=== PATIENT | female | born 1930 | race Caucasian/White ===

== ENCOUNTER 2019-09-09 10:17 | Inpatient (IN) | payer MEDICARE, OTHER ==
[2019-09-09 10:48] LABS: #Lymphocytes 0.7 thou/uL (1.20-3.40); #Monocytes 0.5 thou/uL (0.11-0.59); #Neutrophils 18.2 thou/uL (1.40-6.50); %Basophils 0.1 % (0.0-1.0); %Lymphocytes 3.7 % (21.0-51.0); %Monocytes 2.4 % (0.0-10.0); %Neutrophils 93.7 % (42.0-75.0); Hemoglobin 15.5 g/dL (12.0-16.0); Mean Corpuscular HGB CONC 32.5 g/dL (32.0-36.0); Mean Corpuscular Hemoglobin 30.9 pg (27.0-31.0); Mean Corpuscular Volume 95.1 fL (78.0-98.0); Mean Platelet Volume 10.2 fL (7.4-10.4); Platelet Count 161 thou/uL (130-400); RBC Distribution Width 11.7 % (11.5-14.5); White Blood Cell (WBC) Count 19.5 thou/uL (4.8-10.8)
[2019-09-09 10:56] LABS: Bilirubin Negative (Negative); Blood, Urine Negative (Negative); Clarity Clear (Clear); Glucose, Urine (Dipstick) Greater than 1000 mg/dL (Negative); Leukocyte Negative Leu/uL (Negative); Nitrite Negative (Negative); Protein, Urine (Dipstick) 10 mg/dL (Neg-Trace); Urobilinogen Normal mg/dL (Less than 2)
[2019-09-09 11:20] LABS: ALT (SGPT) 24 U/L (8-55); AST (SGOT) 27 U/L (5-34); Alkaline Phosphatase 77 U/L (40-110); Anion Gap 16 mmol/L (10-20); BUN (Urea Nitrogen) 19 mg/dL (9.8-20.1); Bilirubin, Total 0.9 mg/dL (0.2-1.2); Calc. Creatinine Clearance 0 mL/min (70-130); Calcium 10.1 mg/dL (7.8-10.44); Carbon Dioxide 21 mmol/L (23-31); Chloride 100 mmol/L (98-107); Estimated GFR-MDRD 45; Globulin 3.1 g/dL (2.4-3.5); Glucose 373 mg/dL (83-110); Protein, Total 7.1 g/dL (6.0-8.3); Sodium 133 mmol/L (136-145)
[2019-09-09 11:44] LABS: CKMB 11.9 ng/mL (0-6.6)
--- NOTE | 2019-09-09 11:56 | RAD ---
Chest one view HISTORY: Fever. Dyspnea. COMPARISON: 09/30/2015. FINDINGS: Cardiac silhouette is magnified and enlarged. Pulmonary vasculature remains engorged. Mediastinum is midline with aortic calcification. No lobar consolidation or evidence of pneumothorax. Prominent degenerative changes of the shoulders. surveillance operator leads overlie the chest. IMPRESSION : Cardiomegaly and pulmonary vascular congestion. Chronic findings. No new abnormalities are demonstrat ed. Atherosclerosis.
[2019-09-09] MEDS ORDERED: Acetaminophen 325 MG TAB PO PRN (12:30)
[2019-09-09] MEDS ORDERED: Ondansetron PF 4 MG/2 ML Vial IVP PRN (12:30)
[2019-09-09] MEDS ORDERED: Ondansetron ODT 4 MG TAB SL PRN (12:30)
[2019-09-09 12:39] LABS: INR-International Normal Ratio 1.7; PTT 31.3 SEC (22.9-36.1); Prothrombin Time 20.3 sec (12.0-14.7)
[2019-09-09] MEDS ORDERED: cefTRIAXone\\ROCEPHIN 2 GM VIAL ONE (12:47)
[2019-09-09] MEDS ORDERED: Lorazepam 2 MG/ML VIAL ONE (14:26)
[2019-09-09] MEDS ORDERED: Sodium Chloride 0.9% 10 ML ONE (14:26)
[2019-09-09] MEDS ORDERED: Furosemide 40 MG/4 ML VIAL ONE (14:35)
[2019-09-09] MEDS ORDERED: Sodium Chloride 0.9% 20 ML ONE (14:35)
[2019-09-09 14:44] LABS: Actual Bicarbonate (HCO3a) 22.7 mEq/L (22-28); Base Excess (BEa) -1.9 mEq/L (-2.0 to +3.0); CO2 Tension 38.5 mmHg (35.0-45.0); Carboxyhemoglobin (COHb) 1.1 gm% (0.0-3.0); Hemoglobin (Hb) 16.2 g/dL (12.0-16.0); O2 Tension (PaO2), arterial 275.7 mmHg (> 60.0); Potassium - ABG Lab 3.49 mmol/L (3.70-5.30); pH, Arterial 7.39 (7.35-7.45)
[2019-09-09 15:03] LABS: ALV-art Gradient 389.175 (0-20); Puncture Site RBRACH
[2019-09-09] MEDS ORDERED: Dextrose 50% Abboject 50 ML SYRINGE SLOW IVP PRN (15:04)
[2019-09-09] MEDS ORDERED: Dextrose 5% in Water 1,000 ML IV PRN (15:04)
--- NOTE | 2019-09-09 15:08 | PDOC.HHP ---
Hospitalist HPI - History of Present Illness Altered mental status History of Present Illness: Patient is a 89-year-old female who apparently still lives at home in [place]. The patient is unable to give me any history. I am basing most of the history on the ER record which is sparse. Apparently the patient was picked up from her home by EMS because of presumed altered mental status. I have no specific documentation of that. In route from home to the hospital the patient received a milligram of Ativan and 4 mg of morphine total because she was experiencing some back pain. I have no other specific insight. I attempted to call the patient's person to notify in the computer system. There are 2 numbers. 1 did not get an answer and the other was a voicemail. ED Course: Emergency department patient received a dose of Rocephin. She had a COVID screen sent. Her chest x-ray was reported as normal and her urine benign. She did have leukocytosis. Hospitalist ROS - Review of Systems ROS unobtainable: due to mental status Hospitalist History - Past Medical History Cardiac: reports: AFIB (There is atrial fibrillation reported in the emergency department documentation. Prior records indicate no evidence of this. 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 Her power of business office assistant is her significant other Jesús. Attempts to reach and have been unsuccessful. - Exam General - other findings: Awake and slightly agitated Neck: no JVD Heart: RRR, no murmur, no gallops, no rubs, normal peripheral pulses Respiratory: CTAB, no wheezes, no rales, no ronchi, normal chest expansion, no tachypnea, normal percussion Gastrointestinal: soft, non-tender, non-distended, normal bowel sounds, no palpable masses, no hepatomegaly, no splenomegaly, no bruit Extremities: no cyanosis, no clubbing, no edema Skin: normal turgor Neurological: no focal deficits Musculoskeletal: normal tone Psychiatric - other findings: Agitated Hospitalist Results - Labs Result Diagrams: 09/09/19 10:39 09/09/19 10:39 Lab results: WBC 19.5 thou/uL (4.8-10.8) H 09/09/19 10:39 Hgb 15.5 g/dL (12.0-16.0) 09/09/19 10:39 Hct 47.6 % (36.0-47.0) H 09/09/19 10:39 MCV 95.1 fL (78.0-98.0) 09/09/19 10:39 Plt Count 161 thou/uL (130-400) 09/09/19 10:39 Neutrophils % 93.7 % (42.0-75.0) H 09/09/19 10:39 ABG pH 7.39 (7.35-7.45) 09/09/19 14:31 ABG pCO2 38.5 mmHg (35.0-45.0) 09/09/19 14:31 ABG pO2 275.7 mmHg (> 60.0) H 09/09/19 14:31 Sodium 133 mmol/L (136-145) L 09/09/19 10:39 Potassium 4.0 mmol/L (3.5-5.1) 09/09/19 10:39 Chloride 100 mmol/L (98-107) 09/09/19 10:39 Carbon Dioxide 21 mmol/L (23-31) L 09/09/19 10:39 BUN 19 mg/dL (9.8-20.1) 09/09/19 10:39 Creatinine 1.13 mg/dL (0.6-1.1) H 09/09/19 10:39 Glucose 373 mg/dL (83-110) H 09/09/19 10:39 Lactic Acid 2.0 mmol/L (0.5-2.2) 09/09/19 11:33 Calcium 10.1 mg/dL (7.8-10.44) 09/09/19 10:39 Total Bilirubin 0.9 mg/dL (0.2-1.2) 09/09/19 10:39 AST 27 U/L (5-34) 09/09/19 10:39 ALT 24 U/L (8-55) 09/09/19 10:39 Alkaline Phosphatase 77 U/L (40-110) 09/09/19 10:39 CK-MB (CK-2) 11.9 ng/mL (0-6.6) H* 09/09/19 10:39 Troponin I 0.048 ng/mL (< 0.028) H 09/09/19 10:39 Serum Total Protein 7.1 g/dL (6.0-8.3) 09/09/19 10:39 Albumin 4.0 g/dL (3.4-4.8) 09/09/19 10:39 Lipase 68 U/L (8-78) 09/09/19 10:39 Urine Ketones 10 mg/dL (Negative) A 09/09/19 10:35 Urine Blood Negative (Negative) 09/09/19 10:35 Urine Nitrite Negative (Negative) 09/09/19 10:35 Ur Leukocyte Esterase Negative Kulwinder/uL (Negative) 09/09/19 10:35 - Radiology Interpretation Chest x-ray Status: image reviewed by me Additional Comment: Evidence of pulmonary edema. No infiltrates. Hospitalist H&P A/P - Problem (1) Acute metabolic encephalopathy Code(s): G93.41 - METABOLIC ENCEPHALOPATHY Status: Acute (2) Acute congestive heart failure Code(s): I50.9 - HEART FAILURE, UNSPECIFIED Status: Acute (3) Dyslipidemia Code(s): E78.5 - HYPERLIPIDEMIA, UNSPECIFIED Status: Chronic (4) HTN (hypertension) Code(s): I10 - ESSENTIAL (PRIMARY) HYPERTENSION Status: Chronic (5) History of DVT (deep vein thrombosis) Code(s): Z86.718 - PERSONAL HISTORY OF OTHER VENOUS THROMBOSIS AND EMBOLISM Status: Chronic (6) Hypothyroid Code(s): E03.9 - HYPOTHYROIDISM, UNSPECIFIED Status: Chronic (7) Tricuspid regurgitation Code(s): I07.1 - RHEUMATIC TRICUSPID INSUFFICIENCY Status: Chronic (8) Myocardial infarction Code(s): I21.9 - ACUTE MYOCARDIAL INFARCTION, UNSPECIFIED Status: Acute Qualifiers: Myocardial infarction type: type 2 Qualified Code(s): I21.A1 - Myocardial infarction type 2 (9) CKD (chronic kidney disease), stage III Code(s): N18.3 - CHRONIC KIDNEY DISEASE, STAGE 3 (MODERATE) Status: Acute (10) Diabetes mellitus Code(s): E11.9 - TYPE 2 DIABETES MELLITUS WITHOUT COMPLICATIONS Status: Acute - Plan Plan: Acute metabolic encephalopathy: Patient presents with apparent encephalopathy and altered mental status. Cannot confirm what her baseline is as she only has 1 person who would know and I cannot reach him at the moment. She is quite clearly moving all of her extremities quite well and has no focal deficits. Acute congestive heart failure: Patient appears to have some pulmonary vascular congestion on her chest x-ray. When she arrived to the floor and she was a bit agitated saying she could not breathe. Her oxygen saturation appeared to be good. ABG confirmed that. She does have a history of severe tricuspid regurgitation. Giving her 40 mg of Lasix. Ordering a BNP. Order an echocardiogram. Hypertension: We will resume her usual home medications once confirmed. 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 I do not know exactly when her thrombi were an issue. We will try to get some additional information to confirm the patient needs to continue on that at this time. Hypothyroidism: Continue home dose of Synthroid once confirmed. NSTEMI type II: She has evidence of slightly elevated troponin and CK-MB. EKG was reportedly nonspecific. We will review that. We will continue with troponins and telemetry. This could be related to some decompensated heart failure. We will add aspirin. Diabetes mellitus type 2: This patient presumably does not take medications for this at home. The nurse apparently did speak to the patient significant other earlier and he indicated that she is noncompliant. Blood sugars are elevated here. Will cover with sliding scale insulin. Chronic kidney disease stage III: Patient's creatinine appears to be relatively close to her baseline renal function. We will provide PUD prophylaxis. She does not need anticoagulation as she is already on warfarin. We will continue to attempt to reach her significant other and power of business office assistant in order to establish a better history and to get CODE STATUS.
[2019-09-09 15:38] LABS: Troponin I 0.053 ng/mL (< 0.028)
[2019-09-09] MEDS: Lorazepam 2 MG/ML VIAL SLOW IVP PRN (21:49)
[2019-09-09] MEDS: HumaLOG 300 UNITS/3 ML VIAL SC PRN (23:26)
[2019-09-10] MEDS: Lorazepam 2 MG/ML VIAL SLOW IVP PRN (02:00)
[2019-09-10 04:51] LABS: #Monocytes 1.3 thou/uL (0.11-0.59); #Neutrophils 16.1 thou/uL (1.40-6.50); %Basophils 0.2 % (0.0-1.0); %Eosinophils 0.1 % (0.0-10.0); %Lymphocytes 5.6 % (21.0-51.0); %Monocytes 7.1 % (0.0-10.0); Hemoglobin 16.6 g/dL (12.0-16.0); Mean Corpuscular Hemoglobin 30.8 pg (27.0-31.0); Mean Corpuscular Volume 96.4 fL (78.0-98.0); Mean Platelet Volume 9.4 fL (7.4-10.4); Platelet Count 159 thou/uL (130-400); RBC Distribution Width 11.8 % (11.5-14.5); Red Blood Cell (RBC) Count 5.39 mill/uL (4.20-5.40); White Blood Cell (WBC) Count 18.5 thou/uL (4.8-10.8)
[2019-09-10 05:18] LABS: ALT (SGPT) 29 U/L (8-55); AST (SGOT) 68 U/L (5-34); Albumin 3.9 g/dL (3.4-4.8); Alkaline Phosphatase 77 U/L (40-110); Anion Gap 17 mmol/L (10-20); BUN (Urea Nitrogen) 17 mg/dL (9.8-20.1); Calc. Creatinine Clearance 68 mL/min (70-130); Calcium 10.7 mg/dL (7.8-10.44); Carbon Dioxide 23 mmol/L (23-31); Chloride 100 mmol/L (98-107); Estimated GFR-MDRD 57; Globulin 3.4 g/dL (2.4-3.5); Glucose 243 mg/dL (83-110); Potassium 3.5 mmol/L (3.5-5.1); Protein, Total 7.3 g/dL (6.0-8.3); Sodium 136 mmol/L (136-145)
[2019-09-10 08:42] LABS: INR-International Normal Ratio 1.7; PTT 28.1 sec (22.9-36.1); Prothrombin Time 19.7 sec (12.0-14.7)
[2019-09-10] MEDS ORDERED: Warfarin Sodium 7.5 MG TAB PO SCH (09:00)
[2019-09-10] MEDS: Lisinopril/Hydrochlorothiazide 10 mg/12.5 mg Tablet PO SCH (09:49)
[2019-09-10] MEDS: Levothyroxine Sodium 100 MCG TAB PO SCH (09:50)
[2019-09-10] MEDS: Metoprolol Tartrate 25 MG TAB PO SCH (09:50)
[2019-09-10] MEDS: Furosemide 20 MG TAB PO SCH (09:50)
--- NOTE | 2019-09-10 10:16 | RAD ---
CHEST 1 VIEW PORTABLE: HISTORY: Shortness of breath. COMPARISON: 09/09/2019. FINDINGS: Again noted is cardiomegaly with bilateral vascular congestion and probable small left pleural effusi on. No significant new confluent process. IMPRESSION: Stable vascular congestion, cardiomegaly, and left pleural effusion. POS: [facility]
[2019-09-10 10:35] LABS: SARS-CoV-2 MS2 Positive; SARS-CoV-2 N Gene Negative; SARS-CoV-2 S Gene Negative; SARS-CoV-2 orf1ab Negative
[2019-09-10] MEDS: HumaLOG 300 UNITS/3 ML VIAL SC PRN ×2 (13:31→17:24)
--- NOTE | 2019-09-10 15:01 | PDOC.HOSPP ---
- Subjective Encounter Date: 09/10/19 Subjective: She does awaken with external stimuli but not fully awake. Does not verbally communicate. - Objective Vital Signs & Weight: Vital Signs (12 hours) Temp Pulse Resp BP Pulse Ox 09/10/19 12:10 98.3 F 79 18 136/77 100 09/10/19 09:55 97.2 F L 87 20 188/83 H 99 Weight Admit Weight 232 lb Weight 232 lb I&O: 09/09/19 09/10/19 09/11/19 06:59 06:59 06:59 Intake Total 0 Output Total 1200 Balance -1200 Result Diagrams: 09/10/19 04:40 09/10/19 04:40 Additional Labs: Accuchecks 09/10/19 09/09/19 09/09/19 12:16 21:55 14:23 POC Glucose 301 H 362 H 352 H Hospitalist ROS - Medication Medications: Active Medications Generic Name Dose Route Start Last Admin Trade Name Freq PRN Reason Stop Dose Admin Furosemide 20 mg 09/10/19 09:00 09/10/19 09:50 Lasix PO 20 mg QAM WAQAR Administration Lisinopril/HCTZ 1 tab 09/10/19 09:00 09/10/19 09:49 Prinizide 10-12.5 PO 1 tab DAILY WAQAR Administration Insulin Human Lispro 0 units 09/09/19 15:04 09/10/19 13:31 Humalog SC 5 unit .MILD SLIDING SCALE PRN Administration Mild Correctional Scale Insulin Human Lispro 0 units 09/09/19 23:20 09/09/19 23:26 Humalog SC 5 unit .BEDTIME SLIDING SC PRN Administration Bedtime Correctional Scale Levothyroxine Sodium 100 mcg 09/10/19 09:00 09/10/19 09:50 Synthroid PO 100 mcg DAILY WAQAR Administration Lorazepam 1 mg 09/09/19 15:03 09/10/19 02:00 Ativan SLOW IVP 1 mg Q4H PRN Administration Anxiety/Agitation Metoprolol Tartrate 25 mg 09/10/19 09:00 09/10/19 09:50 Lopressor PO 25 mg DAILY WAQAR Administration Pantoprazole Sodium 40 mg 09/10/19 09:00 09/10/19 09:50 Protonix PO 40 mg DAILY WAQAR Administration Warfarin Sodium 7.5 mg 09/10/19 09:00 09/10/19 09:50 Coumadin PO 7.5 mg DAILY WAQAR Administration - Exam General Appearance: NAD Heart: no murmur, no gallops, irregular Respiratory: CTAB, no wheezes, no rales, no ronchi, normal chest expansion, no tachypnea, normal percussion Gastrointestinal: soft, non-tender, non-distended, normal bowel sounds, no palpable masses, no hepatomegaly, no splenomegaly, no bruit Extremities: no cyanosis, no edema Skin: normal turgor, no lesions, no rashes Neurological: no focal deficits Musculoskeletal: normal tone Psychiatric: somnolent, lethargic Hosp A/P (1) Acute metabolic encephalopathy Code(s): G93.41 - METABOLIC ENCEPHALOPATHY Status: Acute (2) Acute congestive heart failure Code(s): I50.9 - HEART FAILURE, UNSPECIFIED Status: Acute (3) Dyslipidemia Code(s): E78.5 - HYPERLIPIDEMIA, UNSPECIFIED Status: Chronic (4) HTN (hypertension) Code(s): I10 - ESSENTIAL (PRIMARY) HYPERTENSION Status: Chronic (5) History of DVT (deep vein thrombosis) Code(s): Z86.718 - PERSONAL HISTORY OF OTHER VENOUS THROMBOSIS AND EMBOLISM Status: Chronic (6) Hypothyroid Code(s): E03.9 - HYPOTHYROIDISM, UNSPECIFIED Status: Chronic (7) Tricuspid regurgitation Code(s): I07.1 - RHEUMATIC TRICUSPID INSUFFICIENCY Status: Chronic (8) Myocardial infarction Code(s): I21.9 - ACUTE MYOCARDIAL INFARCTION, UNSPECIFIED Status: Acute Qualifiers: Myocardial infarction type: type 2 Qualified Code(s): I21.A1 - Myocardial infarction type 2 (9) CKD (chronic kidney disease), stage III Code(s): N18.3 - CHRONIC KIDNEY DISEASE, STAGE 3 (MODERATE) Status: Acute (10) Diabetes mellitus Code(s): E11.9 - TYPE 2 DIABETES MELLITUS WITHOUT COMPLICATIONS Status: Acute (11) Atrial fibrillation Code(s): I48.91 - UNSPECIFIED ATRIAL FIBRILLATION Status: Acute - Plan Acute metabolic encephalopathy: Etiology remains unclear. The patient was a bit agitated when she initially arrived to the room. She did receive some lorazepam. She required a repeat dose at 2:00 in the morning. Currently she is a bit lethargic and unable to communicate significantly. She has no signs of infection. She does have mild leukocytosis. She is afebrile with no infiltrate on chest x-ray and a normal urinalysis. I did speak to her medical power of disability attorney who indicated that she does have dementia. He reports that she has a caregiver that has been working with her for about 20 years. They have a very difficult time even getting her to bathe. He explained that the patient never actually sits on the couch at home because she is too big and cannot get up when she sits there. However on the day of admission they found her on the couch and slumping forward. She was unable to communicate with them at that time. We will obtain a CT scan of the head today. She does have A. fib and she is on blood thinners with a slightly subtherapeutic INR. Therefore risk of stroke is a possibility. Is also possible that this may be a progression of her dementia with behavior disturbance. Pulmonary edema /congestive heart failure: Patient appears to have some pulmonary vascular congestion and cardiomegaly on her chest x-ray. She did receive a dose of Lasix upon admission. She takes daily low-dose Lasix. Echocardiogram has been ordered and is pending. BNP was slightly elevated. She does have severe tricuspid regurgitation. NSTEMI type II: Could be consistent with the decompensated heart failure picture. CKD stage III: Patient's GFR is consistent with her baseline. Atrial fibrillation: She did not initially appear to be in atrial fibrillation but now she definitely is on the monitor. She is slightly subtherapeutic with her warfarin. Pending the results of her CT scan of the head may need to cover with Lovenox in the short-term. Diabetes mellitus type 2: Blood sugars are currently running high. May need to make some adjustments on her insulin Disposition: Had a long discussion with the patient's medical power of disability attorney. He reports that patient has no family. He was just a friend that worked for her off and on over the years. In 2006 she called him and asked him to help take care of some things and ultimately made him power of disability attorney both for legal matters and for medical matters. He believes the patient would want DNR status given her advanced age. Will make the patient DO NOT RESUSCITATE.
[2019-09-10] MEDS ORDERED: Warfarin Sodium 5 MG TAB PO SCH (17:00)
--- NOTE | 2019-09-10 17:47 | CT ---
CT BRAIN WITHOUT CONTRAST: History: Acute encephalopathy. Comparison: CT brain, 09-28-15 FINDINGS: The exam is limited due to motion artifact. Small hyperostosis frontalis. No acute hemorrhage or infa rct. No midline shift. No mass effect. Calvarium is intact. IMPRESSION: Limited examination due to motion. No acute intracranial abnormality. POS: HOME
[2019-09-10 18:18] LABS: Anion Gap 16 mmol/L (10-20); BUN (Urea Nitrogen) 18 mg/dL (9.8-20.1); Calc. Creatinine Clearance 59 mL/min (70-130); Calcium 11.8 mg/dL (7.8-10.44); Carbon Dioxide 31 mmol/L (23-31); Chloride 96 mmol/L (98-107); Estimated GFR-MDRD 48; Glucose 240 mg/dL (83-110); Potassium 3.2 mmol/L (3.5-5.1); Sodium 140 mmol/L (136-145)
[2019-09-10] MEDS ORDERED: Potassium Chloride 40 MEQ in Premix Bag 1 BAG IVPB SCH (18:30)
[2019-09-10 18:32] LABS: Band 21 % (5-11); Hemoglobin 17.6 g/dL (12.0-16.0); Lymphocytes 5 % (21-51); MDiff Complete? YES; Mean Corpuscular HGB CONC 31.7 g/dL (32.0-36.0); Mean Corpuscular Hemoglobin 30.5 pg (27.0-31.0); Mean Corpuscular Volume 96.2 fL (78.0-98.0); Mean Platelet Volume 9.4 fL (7.4-10.4); Monocytes 2 % (0-10); Neutrophil 71 % (42-75); Platelet Count 189 thou/uL (130-400); Platelet Morphology Comment Appears Adequate; Polychromasia SLIGHT = 2-3 cells (100X) (0-2/hpf); RBC Distribution Width 11.9 % (11.5-14.5); Reactive Lymphocytes 1 % (0-10); Red Blood Cell (RBC) Count 5.78 mill/uL (4.20-5.40)
[2019-09-10] MEDS ORDERED: Potassium Chloride 40 MEQ in Sodium Chloride 0.9% 250 ML 250 ML IVPB SCH (18:45)
[2019-09-10] MEDS ORDERED: Pravastatin Sodium 40 MG TAB PO SCH (21:00)
[2019-09-10] MEDS: Atorvastatin Calcium 10 MG TAB PO SCH (22:55)
[2019-09-11 04:41] LABS: #Basophils 0.1 thou/uL (0.0-0.2); #Lymphocytes 1.3 thou/uL (1.20-3.40); #Monocytes 0.9 thou/uL (0.11-0.59); #Neutrophils 15.4 thou/uL (1.40-6.50); %Basophils 0.3 % (0.0-1.0); %Eosinophils 0.1 % (0.0-10.0); %Lymphocytes 7.1 % (21.0-51.0); %Neutrophils 87.5 % (42.0-75.0); Hemoglobin 16.4 g/dL (12.0-16.0); Mean Corpuscular HGB CONC 32.3 g/dL (32.0-36.0); Mean Corpuscular Hemoglobin 30.9 pg (27.0-31.0); Mean Corpuscular Volume 95.6 fL (78.0-98.0); Mean Platelet Volume 9.7 fL (7.4-10.4); Platelet Count 183 thou/uL (130-400); RBC Distribution Width 11.9 % (11.5-14.5); Red Blood Cell (RBC) Count 5.31 mill/uL (4.20-5.40); White Blood Cell (WBC) Count 17.6 thou/uL (4.8-10.8)
[2019-09-11] MEDS ORDERED: hydrALAZINE 20 MG/ML VIAL SLOW IVP PRN (04:42)
[2019-09-11 04:56] LABS: Anion Gap 15 mmol/L (10-20); BUN (Urea Nitrogen) 24 mg/dL (9.8-20.1); Calc. Creatinine Clearance 62 mL/min (70-130); Calcium 11.2 mg/dL (7.8-10.44); Carbon Dioxide 27 mmol/L (23-31); Chloride 101 mmol/L (98-107); Estimated GFR-MDRD 50; Glucose 316 mg/dL (83-110); Potassium 3.4 mmol/L (3.5-5.1); Sodium 140 mmol/L (136-145)
[2019-09-11] MEDS: HumaLOG 300 UNITS/3 ML VIAL SC PRN ×3 (06:05→21:14)
[2019-09-11] MEDS: Levothyroxine Sodium 100 MCG TAB PO SCH (10:39)
[2019-09-11] MEDS: Furosemide 20 MG TAB PO SCH ×2 (10:40→11:36)
[2019-09-11] MEDS: Lisinopril/Hydrochlorothiazide 10 mg/12.5 mg Tablet PO SCH ×2 (10:41→11:36)
[2019-09-11] MEDS: Metoprolol Tartrate 25 MG TAB PO SCH ×2 (10:41→11:35)
--- NOTE | 2019-09-11 12:11 | CON ---
DATE OF CONSULTATION: 09/11/2019 REASON FOR CONSULTATION: Altered mental status. HISTORY OF PRESENT ILLNESS: Ms. Morales is an 89-year-old female, who was consulted for altered mental status. The patient is unable to provide the history, so history is based on the review of the records. Per records, she was picked up from the home by the EMS because of confusion. En route from home, the patient had received Ativan and morphine because she complained of severe back pain. In the emergency room, she received Rocephin and she was tested for COVID, which came back negative. REVIEW OF SYSTEMS: Unobtainable due to mental status. PAST MEDICAL HISTORY: Atrial fibrillation, on anticoagulation; history of pulmonary embolism; dementia; diabetes; and hypothyroidism. PAST SURGICAL HISTORY: Total hip replacement, bilateral; carpal tunnel release, bilateral. FAMILY HISTORY: Unobtainable. SOCIAL HISTORY: By records, no smoking, alcohol, or illegal drug use. She lives with her significant other. Vital Signs & Weight: Vital Signs (12 hours) Temp Pulse Resp BP Pulse Ox 09/10/19 12:10 98.3 F 79 18 136/77 100 09/10/19 09:55 97.2 F L 87 20 188/83 H 99 Weight Admit Weight 232 lb Weight 232 lb I&O: 09/09/19 09/10/19 09/11/19 06:59 06:59 06:59 Intake Total 0 Output Total 1200 Balance -1200 Additional Labs: Accuchecks 09/10/19 09/09/19 09/09/19 12:16 21:55 14:23 POC Glucose 301 H 362 H 352 H - Medication Medications: Active Medications Generic Name Dose Route Start Last Admin Trade Name Freq PRN Reason Stop Dose Admin Furosemide 20 mg 09/10/19 09:00 09/10/19 09:50 Lasix PO 20 mg QAM WAQAR Administration Lisinopril/HCTZ 1 tab 09/10/19 09:00 09/10/19 09:49 Prinizide 10-12.5 PO 1 tab DAILY WAQAR Administration Insulin Human Lispro 0 units 09/09/19 15:04 09/10/19 13:31 Humalog SC 5 unit .MILD SLIDING SCALE PRN Administration Mild Correctional Scale Insulin Human Lispro 0 units 09/09/19 23:20 09/09/19 23:26 Humalog SC 5 unit .BEDTIME SLIDING SC PRN Administration Bedtime Correctional Scale Levothyroxine Sodium 100 mcg 09/10/19 09:00 09/10/19 09:50 Synthroid PO 100 mcg DAILY WAQAR Administration Lorazepam 1 mg 09/09/19 15:03 09/10/19 02:00 Ativan SLOW IVP 1 mg Q4H PRN Administration Anxiety/Agitation Metoprolol Tartrate 25 mg 09/10/19 09:00 09/10/19 09:50 Lopressor PO 25 mg DAILY WAQAR Administration Pantoprazole Sodium 40 mg 09/10/19 09:00 09/10/19 09:50 Protonix PO 40 mg DAILY WAQAR Administration Warfarin Sodium 7.5 mg 09/10/19 09:00 09/10/19 09:50 Coumadin PO 7.5 mg DAILY WAQAR Administration - Exam General Appearance: NAD Heart: no murmur, no gallops, irregular Respiratory: CTAB, no wheezes, no rales, no ronchi, normal chest expansion, no tachypnea, normal percussion Gastrointestinal: soft, non-tender, non-distended, normal bowel sounds, no palpable masses, no hepatomegaly, no splenomegaly, no bruit Extremities: no cyanosis, no edema Skin: normal turgor, no lesions, no rashes NEUROLOGIC: Mental status; the patient is alert and oriented to person only. She does not maintain eye contact or follow commands. Cranial nerves; pupils equal, round, and reactive to light. Face symmetric. Tongue midline. Moves neck in both directions. Hearing seems to be intact. Shrug shoulders bilaterally. Motor; muscle tone and bulk are normal. Moving all 4 extremities equally and symmetrically. Sensory; withdraws to nailbed pressure bilaterally. Reflexes 2+ bilaterally. Gait deferred due to the patient's safety reason. LABORATORY AND DIAGNOSTIC DATA: Data reviewed. I reviewed the labs, which was positive for leukocytosis of 19.5 and mild hyponatremia of 133. She does have high glucose of 373. Chest x-ray reviewed, which shows evidence of pulmonary edema, but no infiltrate. Head CT reviewed, which did not reveal any acute intracranial pathology. ASSESSMENT AND PLAN: An 89-year-old, consulted for altered mental status. She does have risk factors for stroke including hypertension, diabetes mellitus, and atrial fibrillation. 1.Recommend MRI of the brain to rule out acute intracranial pathology. 2. MRA of the head and neck. 3. 2D echocardiography to rule out cardioembolic source. 4. Neuro checks every 4 hours. 5. Permissive control of blood pressure at this time. 6. Check TSH, fasting lipid profile, and hemoglobin A1c. Strict control of blood glucose. Continue home medications. Continue warfarin and statin for secondary stroke prevention. Recommend EEG to rule out underlying seizure activity. Telemetry. Continue home medications. Continue medical management per primary team. We will continue to follow. Thank you for the consult. Job ID: [id number] ELISA
--- NOTE | 2019-09-11 14:44 | PDOC.HOSPP ---
- Subjective Encounter Date: 09/11/19 - Objective Vital Signs & Weight: Vital Signs (12 hours) Temp Pulse Resp BP BP Pulse Ox 09/11/19 11:43 101 H 20 120/89 100 09/11/19 11:36 100 09/11/19 10:44 96 09/11/19 08:50 97.7 F 100 20 138/89 96 09/11/19 08:00 95 09/11/19 05:29 99 181/90 H 09/11/19 04:00 99.1 F 101 H 20 181/90 H 98 Weight Admit Weight 232 lb Weight 221 lb 1.6 oz I&O: 09/10/19 09/11/19 09/12/19 06:59 06:59 06:59 Intake Total 0 0 Output Total 1200 250 Balance -1200 -250 Result Diagrams: 09/11/19 03:55 09/11/19 03:55 Additional Labs: Accuchecks 09/11/19 09/11/19 09/10/19 10:49 05:39 19:31 POC Glucose 284 H 293 H 223 H 09/10/19 16:38 POC Glucose 237 H Hospitalist ROS - Medication Medications: Active Medications Generic Name Dose Route Start Last Admin Trade Name Freq PRN Reason Stop Dose Admin Atorvastatin Calcium 10 mg 09/10/19 21:00 09/10/19 22:55 Lipitor PO Not Given HS WAQAR Furosemide 20 mg 09/10/19 09:00 09/11/19 11:36 Lasix PO 20 mg QAM WAQAR Administration Lisinopril/HCTZ 1 tab 09/10/19 09:00 09/11/19 11:36 Prinizide 10-12.5 PO 1 tab DAILY WAQAR Administration Hydralazine HCl 5 mg 09/11/19 04:42 09/11/19 05:29 Apresoline SLOW IVP 5 mg Q6H PRN Administration Blood Pressure Insulin Human Lispro 0 units 09/09/19 15:04 09/11/19 06:05 Humalog SC 4 unit .MILD SLIDING SCALE PRN Administration Mild Correctional Scale Insulin Human Lispro 0 units 09/09/19 23:20 09/09/19 23:26 Humalog SC 5 unit .BEDTIME SLIDING SC PRN Administration Bedtime Correctional Scale Lorazepam 1 mg 09/09/19 15:03 09/10/19 02:00 Ativan SLOW IVP 1 mg Q4H PRN Administration Anxiety/Agitation Metoprolol Tartrate 25 mg 09/10/19 09:00 09/11/19 11:35 Lopressor PO 25 mg DAILY WAQAR Administration Pantoprazole Sodium 40 mg 09/10/19 09:00 09/11/19 10:41 Protonix PO Not Given DAILY WAQAR - Exam Heart: no murmur, no gallops, no rubs, irregular Hosp A/P (1) Acute metabolic encephalopathy Code(s): G93.41 - METABOLIC ENCEPHALOPATHY Status: Acute (2) Acute congestive heart failure Code(s): I50.9 - HEART FAILURE, UNSPECIFIED Status: Acute (3) Dyslipidemia Code(s): E78.5 - HYPERLIPIDEMIA, UNSPECIFIED Status: Chronic (4) HTN (hypertension) Code(s): I10 - ESSENTIAL (PRIMARY) HYPERTENSION Status: Chronic (5) History of DVT (deep vein thrombosis) Code(s): Z86.718 - PERSONAL HISTORY OF OTHER VENOUS THROMBOSIS AND EMBOLISM Status: Chronic (6) Hypothyroid Code(s): E03.9 - HYPOTHYROIDISM, UNSPECIFIED Status: Chronic (7) Tricuspid regurgitation Code(s): I07.1 - RHEUMATIC TRICUSPID INSUFFICIENCY Status: Chronic (8) Myocardial infarction Code(s): I21.9 - ACUTE MYOCARDIAL INFARCTION, UNSPECIFIED Status: Acute Qualifiers: Myocardial infarction type: type 2 Qualified Code(s): I21.A1 - Myocardial infarction type 2 (9) CKD (chronic kidney disease), stage III Code(s): N18.3 - CHRONIC KIDNEY DISEASE, STAGE 3 (MODERATE) Status: Acute (10) Diabetes mellitus Code(s): E11.9 - TYPE 2 DIABETES MELLITUS WITHOUT COMPLICATIONS Status: Acute (11) Atrial fibrillation Code(s): I48.91 - UNSPECIFIED ATRIAL FIBRILLATION Status: Acute (12) Hypercalcemia Code(s): E83.52 - HYPERCALCEMIA Status: Acute - Plan Acute metabolic encephalopathy: Etiology remains unclear. She does seem to be improving. She was able to communicate with me verbally a little bit today. She has no signs of infection on exam. She does have mild leukocytosis. She is afebrile with no infiltrate on chest x-ray and a normal urinalysis. CT of the head was unremarkable with some compromised by motion artifact. I did speak to her medical power of district attorney who indicated that she does have dementia. He reports that she has a caregiver that has been working with her for about 20 years. They have a very difficult time even getting her to bathe. He explained that the patient never actually sits on the couch at home because she is too big and cannot get up when she sits there. However on the day of admission they found her on the couch and slumping forward. She was unable to communicate with them at that time. Appreciate neurology consult. Will order MRI of the brain. Pending results may order MRA. Obtain a TSH. Also concerning is the patient now seems to have more of a significant hypercalcemia. This could be potentially affecting her encephalopathy as well. Pulmonary edema /congestive heart failure: Patient appears to have some pulmonary vascular congestion and cardiomegaly on her chest x-ray. She did receive a dose of Lasix upon admission. She takes daily low-dose Lasix. Echocardiogram has been ordered and is pending. This was delayed while the patient was awaiting the results of her COVID test. BNP was slightly elevated. She does have severe tricuspid regurgitation. NSTEMI type II: Could be consistent with the decompensated heart failure picture. CKD stage III: Patient's GFR is consistent with her baseline. Atrial fibrillation: She did not initially appear to be in atrial fibrillation but now she definitely is on the monitor. She is slightly subtherapeutic with her warfarin. Will cover with Lovenox. Recheck in the morning. Diabetes mellitus type 2: Blood sugars are currently running high. She is currently on mild sliding scale. We will increase that to moderate. Hypercalcemia: Patient has moderate hypercalcemia. Could potentially be impacting her mental status. She may need some additional fluids. May need to do that in conjunction with some Lasix. We will check a PTH level. Disposition: Had a long discussion with the patient's medical power of district attorney. He reports that patient has no family. He was just a friend that worked for her off and on over the years. In 2006 she called him and asked him to help take care of some things and ultimately made him power of district attorney both for legal matters and for medical matters. He believes the patient would want DNR status given her advanced age. I have made the patient DO NOT RESUSCITATE.
[2019-09-11 15:23] LABS: Hemoglobin A1c 9.5 % (4.0-6.0)
--- NOTE | 2019-09-11 16:00 | EEG ---
Referring Physician: CHAYO EEG # [id number] TEST TYPE: EXTENDED CONTINUOS VIDEO EEG REPORT: This EEG was performed using 24 channel [employer] video digital EEG with 24 disc electrodes. This was an extended 2 hour 7 minutes of inpatient video EEG recording. Digital analysis of the EEG was done with spike and seizure detection which revealed no abnormalities BACKGROUND: Posterior background rhythm was not observed HYPERVENTILATION: Not performed PHOTIC STIMULATION: Not performed SLEEP: no stage change was observed. EEG DIAGNOSIS: 1) Low amplitude EEG with superimposed muscle artifact. 2) Absence posterior background rhythm CLINICAL INTERPRETATION: THIS EEG IS CONSISTENT WITH MODERATE GENERALIZED NON SPECIFIC CEREBRAL DYSFUNCTION. NO ICTAL OR INTERICTAL EPILEPTIFORM ABNORMALITIES SEEN DURING THE RECORDING. Endoscopy Registered Nurse: ALOK Cad Administrator: CARINA PÉREZ
[2019-09-11] MEDS: Warfarin Sodium 7.5 MG TAB PO SCH (16:08)
[2019-09-11 17:59] LABS: Troponin I 0.026 ng/mL (< 0.028)
[2019-09-11] MEDS: Atorvastatin Calcium 10 MG TAB PO SCH (21:14)
[2019-09-12] MEDS: Levothyroxine Sodium 100 MCG TAB PO SCH (06:05)
[2019-09-12] MEDS: HumaLOG 300 UNITS/3 ML VIAL SC PRN ×4 (06:40→21:11)
[2019-09-12] MEDS: Furosemide 20 MG TAB PO SCH (08:35)
[2019-09-12] MEDS: Metoprolol Tartrate 25 MG TAB PO SCH (08:35)
[2019-09-12] MEDS: Lisinopril/Hydrochlorothiazide 10 mg/12.5 mg Tablet PO SCH (08:35)
[2019-09-12] MEDS: Pantoprazole 40 MG GRANULES PACKET PO SCH (08:36)
[2019-09-12 11:47] LABS: Prothrombin Time 22.6 sec (12.0-14.7)
--- NOTE | 2019-09-12 12:32 | PDOC.HOSPP ---
- Subjective Encounter Date: 09/12/19 Subjective: NEUROLOGY PROGRESS NOTE Mental status improved and alert and oriented x 2. Agitation resolved and following commands appropriately. - Objective Vital Signs & Weight: Vital Signs (12 hours) Temp Pulse Resp BP Pulse Ox 09/12/19 11:42 97.9 F 91 18 136/67 91 L 09/12/19 08:22 98.1 F 92 18 140/100 H 98 09/12/19 06:50 95 09/12/19 04:00 98.8 F 94 18 137/75 95 Weight Admit Weight 232 lb Weight 221 lb 1.6 oz I&O: 09/11/19 09/12/19 09/13/19 06:59 06:59 06:59 Intake Total 0 720 Output Total 250 Balance -250 720 Result Diagrams: 09/11/19 03:55 09/11/19 03:55 Additional Labs: Accuchecks 09/12/19 09/12/19 09/11/19 10:41 06:04 20:39 POC Glucose 277 H 291 H 227 H 09/11/19 17:34 POC Glucose 322 H Radiology Reviewed by me: Yes EKG Reviewed by me: Yes Hospitalist ROS - Review of Systems Constitutional: denies: fever, chills, sweats, weakness, malaise, other Eyes: denies: pain, vision change, conjunctivae inflammation, eyelid inflammation, redness, other ENT: denies: ear pain, ear discharge, nose pain, nose discharge, nose congestion , mouth pain, mouth swelling, throat pain, throat swelling, other Respiratory: denies: cough, dry, shortness of breath, hemoptysis, SOB with excertion, pleuritic pain, sputum, wheezing, other Cardiovascular: denies: chest pain, palpitations, orthopnea, paroxysmal noc. dyspnea, edema, light headedness, other Gastrointestinal: denies: nausea, vomiting, abdominal pain, diarrhea, constipation, melena, hematochezia, other Genitourinary: denies: dysuria, frequency, incontinence, hematuria, retention, other Musculoskeletal: denies: neck pain, shoulder pain, arm pain, back pain, hand pain, leg pain, foot pain, other Skin: denies: rash, lesions, venu, bruising, other Neurological: reports: confusion - Medication Medications: Active Medications Generic Name Dose Route Start Last Admin Trade Name Freq PRN Reason Stop Dose Admin Atorvastatin Calcium 10 mg 09/10/19 21:00 09/11/19 21:14 Lipitor PO 10 mg HS WAQAR Administration Furosemide 20 mg 09/10/19 09:00 09/12/19 08:35 Lasix PO 20 mg QAM WAQAR Administration Lisinopril/HCTZ 1 tab 09/10/19 09:00 09/12/19 08:35 Prinizide 10-12.5 PO 1 tab DAILY WAQAR Administration Hydralazine HCl 5 mg 09/11/19 04:42 09/11/19 05:29 Apresoline SLOW IVP 5 mg Q6H PRN Administration Blood Pressure Insulin Human Lispro 0 units 09/09/19 23:20 09/11/19 21:14 Humalog SC 3 unit .BEDTIME SLIDING SC PRN Administration Bedtime Correctional Scale Insulin Human Lispro 0 units 09/11/19 14:45 09/12/19 11:48 Humalog SC 3 unit .MODERATE SLIDING SC PRN Administration Moderate Correctional Scale Levothyroxine Sodium 100 mcg 09/12/19 06:00 09/12/19 06:05 Synthroid PO 100 mcg 0600 [facility] Administration Lorazepam 1 mg 09/09/19 15:03 09/10/19 02:00 Ativan SLOW IVP 1 mg Q4H PRN Administration Anxiety/Agitation Metoprolol Tartrate 25 mg 09/10/19 09:00 09/12/19 08:35 Lopressor PO 25 mg DAILY WAQAR Administration Pantoprazole Sodium 40 mg 09/12/19 09:00 09/12/19 08:36 Protonix PO 40 mg DAILY [facility] Administration Warfarin Sodium 7.5 mg 09/11/19 17:00 09/11/19 16:08 Coumadin PO 7.5 mg SuTuThSa@1700 [facility] Administration - Exam General Appearance: awake alert Eye: PERRL, anicteric sclera ENT: normocephalic atraumatic, no oropharyngeal lesions, moist mucosa Neck: supple Heart: RRR Respiratory: CTAB Gastrointestinal: soft Extremities: no cyanosis, no clubbing, no edema Skin: normal turgor, no lesions, no rashes Neurological: cranial nerve grossly intact, normal sensation to touch, no weakness, no focal deficits, no new deficit Musculoskeletal: normal tone, normal strength, no muscle wasting Psychiatric: normal affect, normal behavior, A&O x 3 Hosp A/P (1) Altered mental status Code(s): R41.82 - ALTERED MENTAL STATUS, UNSPECIFIED Status: Acute (2) Gout Code(s): M10.9 - GOUT, UNSPECIFIED Status: Chronic (3) HTN (hypertension) Code(s): I10 - ESSENTIAL (PRIMARY) HYPERTENSION Status: Chronic (4) History of DVT (deep vein thrombosis) Code(s): Z86.718 - PERSONAL HISTORY OF OTHER VENOUS THROMBOSIS AND EMBOLISM Status: Chronic (5) Hypothyroid Code(s): E03.9 - HYPOTHYROIDISM, UNSPECIFIED Status: Chronic (6) Morbid obesity Code(s): E66.01 - MORBID (SEVERE) OBESITY DUE TO EXCESS CALORIES Status: Chronic (7) 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 Status: Chronic - Plan PT/OT 89 year old with altered mental status which seems to be multifactorial which is now resolved. No focal deficits EEG reviewed which was negative for seizure activity. MRI Brain to rule out intracranial process is pending. Neuro checks every 4 hours. Continue home medications. Continue medical management per primary team.
--- NOTE | 2019-09-12 14:31 | EEG ---
Referring Physician: Gorge IRVING EEG # [id number] TEST TYPE: EXTENDED CONTINUOUS VIDEO EEG REPORT: This EEG was performed using 24 channel [employer] video digital EEG machine with 24 disc electrodes. This was an extended 2 hour 9 minutes of inpatient digital EEG recording. Digital analysis of the EEG was done for spike and seizure detection which revealed no abnormalities. BACKGROUND: The posterior background rhythm was not observed. HYPERVENTILATION: Was not performed. PHOTIC STIMULATION: Was not performed SLEEP: No stage change was observed. EEG DIAGNOSIS: 1.) Intermittent irregular theta activity seen throughout the recording. 2.) Absence of posterior background rhythm. CLINICAL INTERPRETATION: THIS EEG IS CONSISTENT WITH MODERATE GENERALIZED NONSPECIFIC CEREBRAL DYSFUNCTION. NO ICTAL OR INTERICTAL EPILEPTIFORM ABNORMALITIES SEEN DURING THE RECORDING. Residential Program Coordinator: ALEXIS Furnace Setter: [email or web address] PÉREZ
--- NOTE | 2019-09-12 14:57 | PDOC.HOSPP ---
- Objective Vital Signs & Weight: Vital Signs (12 hours) Temp Pulse Resp BP Pulse Ox 09/12/19 11:42 97.9 F 91 18 136/67 91 L 09/12/19 08:22 98.1 F 92 18 140/100 H 98 09/12/19 06:50 95 09/12/19 04:00 98.8 F 94 18 137/75 95 Weight Admit Weight 232 lb Weight 221 lb 1.6 oz I&O: 09/11/19 09/12/19 09/13/19 06:59 06:59 06:59 Intake Total 0 720 Output Total 250 Balance -250 720 Result Diagrams: 09/11/19 03:55 09/11/19 03:55 Additional Labs: Accuchecks 09/12/19 09/12/19 09/11/19 10:41 06:04 20:39 POC Glucose 277 H 291 H 227 H 09/11/19 17:34 POC Glucose 322 H Hospitalist ROS - Medication Medications: Active Medications Generic Name Dose Route Start Last Admin Trade Name Freq PRN Reason Stop Dose Admin Atorvastatin Calcium 10 mg 09/10/19 21:00 09/11/19 21:14 Lipitor PO 10 mg HS WAQAR Administration Furosemide 20 mg 09/10/19 09:00 09/12/19 08:35 Lasix PO 20 mg QAM WAQAR Administration Lisinopril/HCTZ 1 tab 09/10/19 09:00 09/12/19 08:35 Prinizide 10-12.5 PO 1 tab DAILY WAQAR Administration Hydralazine HCl 5 mg 09/11/19 04:42 09/11/19 05:29 Apresoline SLOW IVP 5 mg Q6H PRN Administration Blood Pressure Insulin Human Lispro 0 units 09/09/19 23:20 09/11/19 21:14 Humalog SC 3 unit .BEDTIME SLIDING SC PRN Administration Bedtime Correctional Scale Insulin Human Lispro 0 units 09/11/19 14:45 09/12/19 11:48 Humalog SC 3 unit .MODERATE SLIDING SC PRN Administration Moderate Correctional Scale Levothyroxine Sodium 100 mcg 09/12/19 06:00 09/12/19 06:05 Synthroid PO 100 mcg 0600 WAQAR Administration Lorazepam 1 mg 09/09/19 15:03 09/10/19 02:00 Ativan SLOW IVP 1 mg Q4H PRN Administration Anxiety/Agitation Metoprolol Tartrate 25 mg 09/10/19 09:00 09/12/19 08:35 Lopressor PO 25 mg DAILY WAQAR Administration Pantoprazole Sodium 40 mg 09/12/19 09:00 09/12/19 08:36 Protonix PO 40 mg DAILY WAQAR Administration Warfarin Sodium 7.5 mg 09/11/19 17:00 09/11/19 16:08 Coumadin PO 7.5 mg SuTuThSa@1700 WAQAR Administration Hosp A/P (1) Acute metabolic encephalopathy Code(s): G93.41 - METABOLIC ENCEPHALOPATHY Status: Acute (2) Acute congestive heart failure Code(s): I50.9 - HEART FAILURE, UNSPECIFIED Status: Acute (3) Dyslipidemia Code(s): E78.5 - HYPERLIPIDEMIA, UNSPECIFIED Status: Chronic (4) HTN (hypertension) Code(s): I10 - ESSENTIAL (PRIMARY) HYPERTENSION Status: Chronic (5) History of DVT (deep vein thrombosis) Code(s): Z86.718 - PERSONAL HISTORY OF OTHER VENOUS THROMBOSIS AND EMBOLISM Status: Chronic (6) Hypothyroid Code(s): E03.9 - HYPOTHYROIDISM, UNSPECIFIED Status: Chronic (7) Tricuspid regurgitation Code(s): I07.1 - RHEUMATIC TRICUSPID INSUFFICIENCY Status: Chronic (8) Myocardial infarction Code(s): I21.9 - ACUTE MYOCARDIAL INFARCTION, UNSPECIFIED Status: Acute Qualifiers: Myocardial infarction type: type 2 Qualified Code(s): I21.A1 - Myocardial infarction type 2 (9) CKD (chronic kidney disease), stage III Code(s): N18.3 - CHRONIC KIDNEY DISEASE, STAGE 3 (MODERATE) Status: Acute (10) Diabetes mellitus Code(s): E11.9 - TYPE 2 DIABETES MELLITUS WITHOUT COMPLICATIONS Status: Acute (11) Atrial fibrillation Code(s): I48.91 - UNSPECIFIED ATRIAL FIBRILLATION Status: Acute (12) Hypercalcemia Code(s): E83.52 - HYPERCALCEMIA Status: Acute (13) Hyperparathyroidism Code(s): E21.3 - HYPERPARATHYROIDISM, UNSPECIFIED Status: Acute - Plan Acute metabolic encephalopathy: Etiology remains unclear. She does seem to be improving. Very conversant and pleasant today. She has no signs of infection on exam. She does have mild leukocytosis. She is afebrile with no infiltrate on chest x-ray and a normal urinalysis. CT of the head was unremarkable with some compromised by motion artifact. Appreciate neurology consult. MRI of the brain. Pending results may order MRA. TSH normal. Also concerning is the patient now seems to have more of a significant hypercalcemia. This could be potentially affecting her encephalopathy as well. Overall, much improved. Pulmonary edema /congestive heart failure: Patient appears to have some pulmonary vascular congestion and cardiomegaly on her chest x-ray. She did receive a dose of Lasix upon admission. She takes daily low-dose Lasix. Echocardiogram showed nml. EF with no mention of the tricuspid valve. BNP was slightly elevated. She does have severe tricuspid regurgitation on previous echos. Appears stable now. NSTEMI type II: Could be consistent with the decompensated heart failure picture. CKD stage III: Patient's GFR is consistent with her baseline. Atrial fibrillation: She did not initially appear to be in atrial fibrillation but now she definitely is on the monitor. She is now therapeutic with her warfarin. Diabetes mellitus type 2: Blood sugars are currently running high. She is currently on mild sliding scale. We will increase that to moderate. Adding metformin. She does not have a history of DM. She has a hgb A1c of over 10. This has been undiagnosed and untreated. Could have contributed to the encephalopathy. Hypercalcemia: Patient has moderate hypercalcemia. Could potentially be impacting her mental status. She may need some additional fluids. May need to do that in conjunction with some Lasix. PTH intact is elevated. Check vit D level. 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 She will need monitoring of the calcium levels and when more stable a decision can be made regarding the need to workup for adenoma. Disposition: Improving. PT consult to get her on her feet. Hopefully home soon.
--- NOTE | 2019-09-12 16:08 | MRI ---
CT head noncontrast HISTORY: Altered mental status. FINDINGS: There is no evidence of acute intracranial hemorrhage or infarct. Mild diffuse cortical atr ophy. Minimal chronic ischemic small vessel disease. There is no mass effect or shift of midline structures. Prominent mucosal thickening throughout the m astoid air cells. Fluid layers within the dependent portion of the sphenoid sinus. IMPRESSION : No acute intracranial abnormalities are demonstrated. Sphenoid sinusitis. Bilateral mastoid mucosal disease.
[2019-09-12] MEDS: Warfarin Sodium 5 MG TAB PO SCH (16:25)
[2019-09-12] MEDS: metFORMIN 500 MG TAB PO SCH (16:25)
[2019-09-12] MEDS: Atorvastatin Calcium 10 MG TAB PO SCH (21:11)
[2019-09-13 05:13] LABS: INR-International Normal Ratio 2.1; Prothrombin Time 23.1 sec (12.0-14.7)
[2019-09-13] MEDS: Levothyroxine Sodium 100 MCG TAB PO SCH (05:41)
[2019-09-13] MEDS: HumaLOG 300 UNITS/3 ML VIAL SC PRN ×4 (05:55→22:28)
[2019-09-13] MEDS: Pantoprazole 40 MG GRANULES PACKET PO SCH (08:53)
[2019-09-13] MEDS: Furosemide 20 MG TAB PO SCH (08:53)
[2019-09-13] MEDS: Lisinopril/Hydrochlorothiazide 10 mg/12.5 mg Tablet PO SCH (08:53)
[2019-09-13] MEDS: Metoprolol Tartrate 25 MG TAB PO SCH (08:53)
[2019-09-13] MEDS: metFORMIN 500 MG TAB PO SCH ×2 (08:53→17:41)
[2019-09-13] MEDS: Insulin Glargine 20 UNITS in Pre-Filled Syringe 1 EACH SC SCH (09:57)
--- NOTE | 2019-09-13 10:57 | PDOC.HOSPP ---
- Subjective Encounter Date: 09/13/19 Subjective: NEUROLOGY PROGRESS NOTE Patient is back to baseline. - Objective Vital Signs & Weight: Vital Signs (12 hours) Temp Pulse Resp BP BP Pulse Ox 09/13/19 08:53 77 128/71 09/13/19 08:00 97.7 F 77 25 H 128/71 95 09/13/19 06:57 97 09/13/19 03:10 97.9 F 78 18 120/64 97 Weight Admit Weight 232 lb Weight 222 lb 1.6 oz I&O: 09/12/19 09/13/19 09/14/19 06:59 06:59 06:59 Intake Total 720 1620 Output Total 825 Balance 720 795 Result Diagrams: 09/11/19 03:55 09/11/19 03:55 Additional Labs: Accuchecks 09/13/19 09/12/19 09/12/19 05:44 20:33 16:16 POC Glucose 409 H 210 H 265 H 09/12/19 10:41 POC Glucose 277 H Radiology Reviewed by me: Yes EKG Reviewed by me: Yes Hospitalist ROS - Review of Systems Constitutional: denies: fever, chills, sweats, weakness, malaise, other Eyes: denies: pain, vision change, conjunctivae inflammation, eyelid inflammation, redness, other ENT: denies: ear pain, ear discharge, nose pain, nose discharge, nose congestion , mouth pain, mouth swelling, throat pain, throat swelling, other Respiratory: denies: cough, dry, shortness of breath, hemoptysis, SOB with excertion, pleuritic pain, sputum, wheezing, other Cardiovascular: denies: chest pain, palpitations, orthopnea, paroxysmal noc. dyspnea, edema, light headedness, other Gastrointestinal: denies: nausea, vomiting, abdominal pain, diarrhea, constipation, melena, hematochezia, other Genitourinary: denies: dysuria, frequency, incontinence, hematuria, retention, other Musculoskeletal: denies: neck pain, shoulder pain, arm pain, back pain, hand pain, leg pain, foot pain, other Skin: denies: rash, lesions, venu, bruising, other Neurological: denies: weakness, numbness, incoordination, change in speech, confusion, seizures, other - Medication Medications: Active Medications Generic Name Dose Route Start Last Admin Trade Name Jean Claudeq PRN Reason Stop Dose Admin Atorvastatin Calcium 10 mg 09/10/19 21:00 09/12/19 21:11 Lipitor PO 10 mg HS [facility] Administration Furosemide 20 mg 09/10/19 09:00 09/13/19 08:53 Lasix PO 20 mg QAM WAQAR Administration Lisinopril/HCTZ 1 tab 09/10/19 09:00 09/13/19 08:53 Prinizide 10-12.5 PO 1 tab DAILY [facility] Administration Hydralazine HCl 5 mg 09/11/19 04:42 09/11/19 05:29 Apresoline SLOW IVP 5 mg Q6H PRN Administration Blood Pressure Insulin Glargine 20 units/ 0.2 mls @ 0 mls/hr 09/13/19 09:00 09/13/19 09:57 Miscellaneous Medication SC 0.2 mls QAM WAQAR Administration Insulin Human Lispro 0 units 09/09/19 23:20 09/12/19 21:11 Humalog SC 2 unit .BEDTIME SLIDING SC PRN Administration Bedtime Correctional Scale Insulin Human Lispro 0 units 09/11/19 14:45 09/13/19 05:55 Humalog SC 10 unit .MODERATE SLIDING SC PRN Administration Moderate Correctional Scale Levothyroxine Sodium 100 mcg 09/12/19 06:00 09/13/19 05:41 Synthroid PO 100 mcg 0600 [facility] Administration Lorazepam 1 mg 09/09/19 15:03 09/10/19 02:00 Ativan SLOW IVP 1 mg Q4H PRN Administration Anxiety/Agitation Metformin HCl 500 mg 09/12/19 17:00 09/13/19 08:53 Glucophage PO 500 mg BID- WAQAR Administration Metoprolol Tartrate 25 mg 09/10/19 09:00 09/13/19 08:53 Lopressor PO 25 mg DAILY WAQAR Administration Pantoprazole Sodium 40 mg 09/12/19 09:00 09/13/19 08:53 Protonix PO 40 mg DAILY WAQAR Administration Warfarin Sodium 5 mg 09/12/19 17:00 09/12/19 16:25 Coumadin PO 5 mg MoWeFr@1700 [facility] Administration Warfarin Sodium 7.5 mg 09/11/19 17:00 09/11/19 16:08 Coumadin PO 7.5 mg SuTuThSa@1700 [facility] Administration - Exam General Appearance: awake alert Eye: PERRL, anicteric sclera ENT: normocephalic atraumatic, no oropharyngeal lesions, moist mucosa Neck: supple Heart: RRR Respiratory: CTAB Gastrointestinal: soft Extremities: no cyanosis, no clubbing, no edema Skin: normal turgor, no lesions, no rashes Neurological: cranial nerve grossly intact, normal sensation to touch, no weakness, no focal deficits, no new deficit Musculoskeletal: normal tone, normal strength, no muscle wasting Psychiatric: normal affect, normal behavior, A&O x 3, oriented to person, oriented to place, oriented to time Hosp A/P (1) Altered mental status Code(s): R41.82 - ALTERED MENTAL STATUS, UNSPECIFIED Status: Acute (2) Gout Code(s): M10.9 - GOUT, UNSPECIFIED Status: Chronic (3) HTN (hypertension) Code(s): I10 - ESSENTIAL (PRIMARY) HYPERTENSION Status: Chronic (4) History of DVT (deep vein thrombosis) Code(s): Z86.718 - PERSONAL HISTORY OF OTHER VENOUS THROMBOSIS AND EMBOLISM Status: Chronic (5) Hypothyroid Code(s): E03.9 - HYPOTHYROIDISM, UNSPECIFIED Status: Chronic (6) Morbid obesity Code(s): E66.01 - MORBID (SEVERE) OBESITY DUE TO EXCESS CALORIES Status: Chronic (7) 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 No focal deficits. Restarted on home medications including xanax and other medications prescribed by psychiatry which she has not been taking for the last 2 weeks. Episode most likely due to withdrawal . EEG reviewed which was negative for seizure activity. MRI Brain to rule out intracranial process is negative for acute intracranial pathology. Neuro checks every 4 hours. Continue home medications. Continue medical management per primary team. No further neurology recommendations at this time. Plan and results discussed with patient, and Celia Campbell-ROMARIO
--- NOTE | 2019-09-13 12:43 | PDOC.HOSPP ---
- Subjective Encounter Date: 09/13/19 Subjective: NEUROLOGY PROGRESS NOTE Patient is alert, awake and following commands appropriately. - Objective Vital Signs & Weight: Vital Signs (12 hours) Temp Pulse Resp BP BP Pulse Ox 09/13/19 11:47 97.9 F 78 30 H 136/77 95 09/13/19 08:53 77 128/71 09/13/19 08:00 97.7 F 77 25 H 128/71 95 09/13/19 06:57 97 09/13/19 03:10 97.9 F 78 18 120/64 97 Weight Admit Weight 232 lb Weight 222 lb 1.6 oz I&O: 09/12/19 09/13/19 09/14/19 06:59 06:59 06:59 Intake Total 720 1620 Output Total 825 Balance 720 795 Result Diagrams: 09/11/19 03:55 09/11/19 03:55 Additional Labs: Accuchecks 09/13/19 09/13/19 09/12/19 10:28 05:44 20:33 POC Glucose 305 H 409 H 210 H 09/12/19 16:16 POC Glucose 265 H Radiology Reviewed by me: Yes EKG Reviewed by me: Yes Hospitalist ROS - Review of Systems Constitutional: denies: fever, chills, sweats, weakness, malaise, other Eyes: denies: pain, vision change, conjunctivae inflammation, eyelid inflammation, redness, other ENT: denies: ear pain, ear discharge, nose pain, nose discharge, nose congestion , mouth pain, mouth swelling, throat pain, throat swelling, other Respiratory: denies: cough, dry, shortness of breath, hemoptysis, SOB with excertion, pleuritic pain, sputum, wheezing, other Cardiovascular: denies: chest pain, palpitations, orthopnea, paroxysmal noc. dyspnea, edema, light headedness, other Gastrointestinal: denies: nausea, vomiting, abdominal pain, diarrhea, constipation, melena, hematochezia, other Genitourinary: denies: dysuria, frequency, incontinence, hematuria, retention, other Musculoskeletal: denies: neck pain, shoulder pain, arm pain, back pain, hand pain, leg pain, foot pain, other Skin: denies: rash, lesions, venu, bruising, other Neurological: reports: confusion - Medication Medications: Active Medications Generic Name Dose Route Start Last Admin Trade Name Freq PRN Reason Stop Dose Admin Atorvastatin Calcium 10 mg 09/10/19 21:00 09/12/19 21:11 Lipitor PO 10 mg HS WAQAR Administration Furosemide 20 mg 09/10/19 09:00 09/13/19 08:53 Lasix PO 20 mg QAM WAQAR Administration Lisinopril/HCTZ 1 tab 09/10/19 09:00 09/13/19 08:53 Prinizide 10-12.5 PO 1 tab DAILY WAQAR Administration Hydralazine HCl 5 mg 09/11/19 04:42 09/11/19 05:29 Apresoline SLOW IVP 5 mg Q6H PRN Administration Blood Pressure Insulin Glargine 20 units/ 0.2 mls @ 0 mls/hr 09/13/19 09:00 09/13/19 09:57 Miscellaneous Medication SC 0.2 mls QAM WAQAR Administration Insulin Human Lispro 0 units 09/09/19 23:20 09/12/19 21:11 Humalog SC 2 unit .BEDTIME SLIDING SC PRN Administration Bedtime Correctional Scale Insulin Human Lispro 0 units 09/11/19 14:45 09/13/19 05:55 Humalog SC 10 unit .MODERATE SLIDING SC PRN Administration Moderate Correctional Scale Levothyroxine Sodium 100 mcg 09/12/19 06:00 09/13/19 05:41 Synthroid PO 100 mcg 0600 WAQAR Administration Lorazepam 1 mg 09/09/19 15:03 09/10/19 02:00 Ativan SLOW IVP 1 mg Q4H PRN Administration Anxiety/Agitation Metformin HCl 500 mg 09/12/19 17:00 09/13/19 08:53 Glucophage PO 500 mg BID- WAQAR Administration Metoprolol Tartrate 25 mg 09/10/19 09:00 09/13/19 08:53 Lopressor PO 25 mg DAILY WAQAR Administration Pantoprazole Sodium 40 mg 09/12/19 09:00 09/13/19 08:53 Protonix PO 40 mg DAILY WAQAR Administration Warfarin Sodium 5 mg 09/12/19 17:00 09/12/19 16:25 Coumadin PO 5 mg [email or web address]@1700 WA[facility] Administration Warfarin Sodium 7.5 mg 09/11/19 17:00 09/11/19 16:08 Coumadin PO 7.5 mg SuTuThSa@1700 WAQAR Administration - Exam General Appearance: awake alert Eye: PERRL ENT: normocephalic atraumatic Neck: supple Heart: RRR Respiratory: CTAB Gastrointestinal: soft Extremities: no cyanosis, no clubbing, no edema Skin: normal turgor, no lesions, no rashes Neurological: cranial nerve grossly intact, normal sensation to touch, no weakness, no focal deficits, no new deficit Musculoskeletal: normal tone, normal strength, no muscle wasting Psychiatric: normal affect, normal behavior, oriented to person, oriented to place Hosp A/P (1) Altered mental status Code(s): R41.82 - ALTERED MENTAL STATUS, UNSPECIFIED Status: Acute (2) Gout Code(s): M10.9 - GOUT, UNSPECIFIED Status: Chronic (3) HTN (hypertension) Code(s): I10 - ESSENTIAL (PRIMARY) HYPERTENSION Status: Chronic (4) History of DVT (deep vein thrombosis) Code(s): Z86.718 - PERSONAL HISTORY OF OTHER VENOUS THROMBOSIS AND EMBOLISM Status: Chronic (5) Hypothyroid Code(s): E03.9 - HYPOTHYROIDISM, UNSPECIFIED Status: Chronic (6) Morbid obesity Code(s): E66.01 - MORBID (SEVERE) OBESITY DUE TO EXCESS CALORIES Status: Chronic (7) 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 No focal deficits. EEG reviewed which was negative for seizure activity. MRI Brain negative for acute intracranial pathology. Neuro checks every 4 hours. 2 D echo was unremarkable. Continue home medications. Continue medical management per primary team. No further neurology recommendations at this time. Plan and results discussed with patient
--- NOTE | 2019-09-13 15:58 | PDOC.HOSPP ---
- Subjective Encounter Date: 09/13/19 Subjective: Doing well today. Patient is without complaints other than needing to go to the bathroom. She has been eating. Says she is eager to try to get up. - Objective Vital Signs & Weight: Vital Signs (12 hours) Temp Pulse Pulse Pulse Resp BP BP 09/13/19 13:26 81 91 127/74 09/13/19 13:25 81 91 127/74 09/13/19 11:47 97.9 F 78 30 H 09/13/19 08:53 77 128/71 09/13/19 08:00 97.7 F 77 25 H 09/13/19 06:57 BP BP Pulse Ox 09/13/19 13:26 131/72 09/13/19 13:25 131/72 09/13/19 11:47 136/77 95 09/13/19 08:53 09/13/19 08:00 128/71 95 09/13/19 06:57 97 Weight Admit Weight 232 lb Weight 222 lb 1.6 oz I&O: 09/12/19 09/13/19 09/14/19 06:59 06:59 06:59 Intake Total 720 1620 Output Total 825 Balance 720 795 Result Diagrams: 09/11/19 03:55 09/11/19 03:55 Additional Labs: Accuchecks 09/13/19 09/13/19 09/12/19 10:28 05:44 20:33 POC Glucose 305 H 409 H 210 H 09/12/19 16:16 POC Glucose 265 H Hospitalist ROS - Medication Medications: Active Medications Generic Name Dose Route Start Last Admin Trade Name Jean Claudeq PRN Reason Stop Dose Admin Atorvastatin Calcium 10 mg 09/10/19 21:00 09/12/19 21:11 Lipitor PO 10 mg HS WAQAR Administration Furosemide 20 mg 09/10/19 09:00 09/13/19 08:53 Lasix PO 20 mg QAM WAQAR Administration Lisinopril/HCTZ 1 tab 09/10/19 09:00 09/13/19 08:53 Prinizide 10-12.5 PO 1 tab DAILY WAQAR Administration Hydralazine HCl 5 mg 09/11/19 04:42 09/11/19 05:29 Apresoline SLOW IVP 5 mg Q6H PRN Administration Blood Pressure Insulin Glargine 20 units/ 0.2 mls @ 0 mls/hr 09/13/19 09:00 09/13/19 09:57 Miscellaneous Medication SC 0.2 mls QAM WAQAR Administration Insulin Human Lispro 0 units 09/09/19 23:20 09/12/19 21:11 Humalog SC 2 unit .BEDTIME SLIDING SC PRN Administration Bedtime Correctional Scale Insulin Human Lispro 0 units 09/11/19 14:45 09/13/19 13:11 Humalog SC 8 unit .MODERATE SLIDING SC PRN Administration Moderate Correctional Scale Levothyroxine Sodium 100 mcg 09/12/19 06:00 09/13/19 05:41 Synthroid PO 100 mcg 0600 WAQAR Administration Lorazepam 1 mg 09/09/19 15:03 09/10/19 02:00 Ativan SLOW IVP 1 mg Q4H PRN Administration Anxiety/Agitation Metformin HCl 500 mg 09/12/19 17:00 09/13/19 08:53 Glucophage PO 500 mg BID-WM WAQAR Administration Metoprolol Tartrate 25 mg 09/10/19 09:00 09/13/19 08:53 Lopressor PO 25 mg DAILY WAQAR Administration Pantoprazole Sodium 40 mg 09/12/19 09:00 09/13/19 08:53 Protonix PO 40 mg DAILY WAQAR Administration Warfarin Sodium 5 mg 09/12/19 17:00 09/12/19 16:25 Coumadin PO 5 mg MoWeFr@1700 WAQAR Administration Warfarin Sodium 7.5 mg 09/11/19 17:00 09/11/19 16:08 Coumadin PO 7.5 mg SuTuThSa@1700 WAQAR Administration - Exam General Appearance: NAD, awake alert Heart: RRR, no murmur, no gallops, no rubs, normal peripheral pulses Respiratory: CTAB, no wheezes, no rales, no ronchi, normal chest expansion, no tachypnea, normal percussion Gastrointestinal: soft, non-tender, non-distended, normal bowel sounds, no palpable masses, no hepatomegaly, no splenomegaly, no bruit Extremities: no cyanosis, no clubbing, no edema Skin: normal turgor Neurological: no focal deficits Psychiatric: normal affect Psychiatric - other findings: Mildly confused. Fairly good memory. Hosp A/P (1) Acute metabolic encephalopathy Code(s): G93.41 - METABOLIC ENCEPHALOPATHY Status: Acute (2) Acute congestive heart failure Code(s): I50.9 - HEART FAILURE, UNSPECIFIED Status: Acute (3) Dyslipidemia Code(s): E78.5 - HYPERLIPIDEMIA, UNSPECIFIED Status: Chronic (4) HTN (hypertension) Code(s): I10 - ESSENTIAL (PRIMARY) HYPERTENSION Status: Chronic (5) History of DVT (deep vein thrombosis) Code(s): Z86.718 - PERSONAL HISTORY OF OTHER VENOUS THROMBOSIS AND EMBOLISM Status: Chronic (6) Hypothyroid Code(s): E03.9 - HYPOTHYROIDISM, UNSPECIFIED Status: Chronic (7) Tricuspid regurgitation Code(s): I07.1 - RHEUMATIC TRICUSPID INSUFFICIENCY Status: Chronic (8) Myocardial infarction Code(s): I21.9 - ACUTE MYOCARDIAL INFARCTION, UNSPECIFIED Status: Acute Qualifiers: Myocardial infarction type: type 2 Qualified Code(s): I21.A1 - Myocardial infarction type 2 (9) CKD (chronic kidney disease), stage III Code(s): N18.3 - CHRONIC KIDNEY DISEASE, STAGE 3 (MODERATE) Status: Acute (10) Diabetes mellitus Code(s): E11.9 - TYPE 2 DIABETES MELLITUS WITHOUT COMPLICATIONS Status: Acute (11) Atrial fibrillation Code(s): I48.91 - UNSPECIFIED ATRIAL FIBRILLATION Status: Acute (12) Hypercalcemia Code(s): E83.52 - HYPERCALCEMIA Status: Acute (13) Hyperparathyroidism Code(s): E21.3 - HYPERPARATHYROIDISM, UNSPECIFIED Status: Acute (14) Dementia Code(s): F03.90 - UNSPECIFIED DEMENTIA WITHOUT BEHAVIORAL DISTURBANCE Status: Acute (15) Leukocytosis Code(s): D72.829 - ELEVATED WHITE BLOOD CELL COUNT, UNSPECIFIED Status: Acute - Plan Acute metabolic encephalopathy: Substantially improved. Is believe the patient is at her baseline. Appreciate neurology input. Pulmonary edema /congestive heart failure: Patient initially appeared to have some pulmonary edema and cardiomegaly. She was initially diuresed. Since that time she has been quite stable and has had no further problems. NSTEMI type II: Could be consistent with the decompensated heart failure picture. CKD stage III: Patient's GFR is consistent with her baseline. Atrial fibrillation: She did not initially appear to be in atrial fibrillation but now she definitely is on the monitor. She is now therapeutic with her warfarin. Diabetes mellitus type 2: Blood sugars are currently running high. She is currently on mild sliding scale. We will increase that to moderate. Adding metformin. She does not have a history of DM. She has a hgb A1c of over 10. This has been undiagnosed and untreated. Could have contributed to the encephalopathy. Adding some long-acting insulin today. Hypercalcemia: Patient has moderate hypercalcemia. Could potentially be impacting her mental status. She may need some additional fluids. May need to do that in conjunction with some Lasix. PTH intact is elevated. Check vit D level. 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 She will need monitoring of the calcium levels and when more stable a decision can be made regarding the need to workup for adenoma. Leukocytosis: Patient appears to have a history of leukocytosis when reviewing her previous labs. She has no other signs of infection and no fever. We will repeat a CBC with a manual differential in the morning. Disposition: Improving. PT consult to get her on her feet. Hopefully home soon.
[2019-09-13] MEDS: Warfarin Sodium 7.5 MG TAB PO SCH (17:42)
[2019-09-13] MEDS: Atorvastatin Calcium 10 MG TAB PO SCH (22:20)
[2019-09-14 04:27] LABS: INR-International Normal Ratio 2.3
[2019-09-14 04:38] LABS: Band 9 % (5-11); Eosinophils 6 % (0-10); Hemoglobin 15.8 g/dL (12.0-16.0); Lymphocytes 22 % (21-51); MDiff Complete? YES; Mean Corpuscular HGB CONC 32.4 g/dL (32.0-36.0); Mean Corpuscular Hemoglobin 30.8 pg (27.0-31.0); Mean Platelet Volume 9.3 fL (7.4-10.4); Monocytes 9 % (0-10); Neutrophil 53 % (42-75); Platelet Count 164 thou/uL (130-400); Platelet Morphology Comment Appears Adequate; RBC Distribution Width 11.5 % (11.5-14.5); Red Blood Cell (RBC) Count 5.12 mill/uL (4.20-5.40); White Blood Cell (WBC) Count 12.2 thou/uL (4.8-10.8)
[2019-09-14] MEDS: HumaLOG 300 UNITS/3 ML VIAL SC PRN ×3 (06:26→17:45)
[2019-09-14] MEDS: Levothyroxine Sodium 100 MCG TAB PO SCH (06:26)
--- NOTE | 2019-09-14 08:10 | RAD ---
EXAM: CHEST ONE VIEW HISTORY: Leukocytosis COMPARISON: 09/10/2019 FINDINGS: Cardiac silhouette is magnified by projection but does appear mildly enlarged. Pulmonary vasculature is within normal limits. Lungs remain clear. Severe bilateral glenohumeral osteoarthropathy is noted with multilevel degenerative changes in the spine. Osseous densities are seen beneath each mindy coid process of the shoulder likely related to intra-articular loose bodies. Right convex curvature thoracic spine is present. Vascular calcifications are seen in the thoracic aorta. No other interval change. IMPRESSION: 1. Mild cardiomegaly. 2. No acute cardiopulmonary process. 3. Severe bilateral glenohumeral osteoarthropathy.
[2019-09-14] MEDS: Furosemide 20 MG TAB PO SCH (09:32)
[2019-09-14] MEDS: Pantoprazole 40 MG GRANULES PACKET PO SCH (09:32)
[2019-09-14] MEDS: Metoprolol Tartrate 25 MG TAB PO SCH (09:32)
[2019-09-14] MEDS: metFORMIN 500 MG TAB PO SCH ×2 (09:32→17:45)
[2019-09-14] MEDS: Lisinopril/Hydrochlorothiazide 10 mg/12.5 mg Tablet PO SCH (09:32)
[2019-09-14] MEDS: Insulin Glargine 20 UNITS in Pre-Filled Syringe 1 EACH SC SCH (09:32)
[2019-09-14] MEDS: Warfarin Sodium 5 MG TAB PO SCH (17:45)
--- NOTE | 2019-09-14 18:04 | PDOC.HOSPP ---
- Subjective Encounter Date: 09/14/19 Subjective: Feels well. No complaints today. - Objective Vital Signs & Weight: Vital Signs (12 hours) Temp Pulse Pulse Pulse Resp BP BP 09/14/19 15:39 98.0 F 75 20 09/14/19 14:28 94 91 144/80 H 117/63 09/14/19 11:18 97.6 F 94 21 H 09/14/19 09:40 09/14/19 09:30 96.9 F L 82 18 BP Pulse Ox 09/14/19 15:39 120/67 98 09/14/19 14:28 09/14/19 11:18 124/69 95 09/14/19 09:40 98 09/14/19 09:30 132/60 98 Weight Admit Weight 232 lb Weight 224 lb 14.4 oz I&O: 09/13/19 09/14/19 09/15/19 06:59 06:59 06:59 Intake Total 1620 480 Output Total 825 1650 Balance 795 -1170 Result Diagrams: 09/14/19 03:57 09/11/19 03:55 Additional Labs: Accuchecks 09/14/19 09/14/19 09/14/19 16:45 10:56 06:29 POC Glucose 241 H 293 H 188 H 09/13/19 20:37 POC Glucose 220 H Hospitalist ROS - Medication Medications: Active Medications Generic Name Dose Route Start Last Admin Trade Name Freq PRN Reason Stop Dose Admin Atorvastatin Calcium 10 mg 09/10/19 21:00 09/13/19 22:20 Lipitor PO 10 mg HS WAQAR Administration Furosemide 20 mg 09/10/19 09:00 09/14/19 09:32 Lasix PO 20 mg QAM WAQAR Administration Lisinopril/HCTZ 1 tab 09/10/19 09:00 09/14/19 09:32 Prinizide 10-12.5 PO 1 tab DAILY WAQAR Administration Hydralazine HCl 5 mg 09/11/19 04:42 09/11/19 05:29 Apresoline SLOW IVP 5 mg Q6H PRN Administration Blood Pressure Insulin Glargine 20 units/ 0.2 mls @ 0 mls/hr 09/13/19 09:00 09/14/19 09:32 Miscellaneous Medication SC 0.2 mls QAM WAQAR Administration Insulin Human Lispro 0 units 09/09/19 23:20 09/13/19 22:28 Humalog SC 2 unit .BEDTIME SLIDING SC PRN Administration Bedtime Correctional Scale Insulin Human Lispro 0 units 09/11/19 14:45 09/14/19 17:45 Humalog SC 4 unit .MODERATE SLIDING SC PRN Administration Moderate Correctional Scale Levothyroxine Sodium 100 mcg 09/12/19 06:00 09/14/19 06:26 Synthroid PO 100 mcg 0600 WAQAR Administration Lorazepam 1 mg 09/09/19 15:03 09/10/19 02:00 Ativan SLOW IVP 1 mg Q4H PRN Administration Anxiety/Agitation Metformin HCl 500 mg 09/12/19 17:00 09/14/19 17:45 Glucophage PO 500 mg BID-WM WAQAR Administration Metoprolol Tartrate 25 mg 09/10/19 09:00 09/14/19 09:32 Lopressor PO 25 mg DAILY WAQAR Administration Pantoprazole Sodium 40 mg 09/12/19 09:00 09/14/19 09:32 Protonix PO 40 mg DAILY WAQAR Administration Warfarin Sodium 5 mg 09/12/19 17:00 09/14/19 17:45 Coumadin PO 5 mg MoWeFr@1700 WAQAR Administration Warfarin Sodium 7.5 mg 09/11/19 17:00 09/13/19 17:42 Coumadin PO 7.5 mg SuTuThSa@1700 WAQAR Administration - Exam General Appearance: NAD, awake alert Heart: no murmur, no gallops, no rubs, normal peripheral pulses, irregular Respiratory: CTAB, no wheezes, no rales, no ronchi, normal chest expansion, no tachypnea, normal percussion Gastrointestinal: soft, non-tender, non-distended, normal bowel sounds, no palpable masses, no hepatomegaly, no splenomegaly, no bruit Extremities: no cyanosis, no clubbing, no edema Neurological: no focal deficits Musculoskeletal: generalized weakness Psychiatric: normal affect, normal behavior, A&O x 3 Hosp A/P (1) Acute metabolic encephalopathy Code(s): G93.41 - METABOLIC ENCEPHALOPATHY Status: Resolved (2) Acute congestive heart failure Code(s): I50.9 - HEART FAILURE, UNSPECIFIED Status: Ruled-out (3) Dyslipidemia Code(s): E78.5 - HYPERLIPIDEMIA, UNSPECIFIED Status: Chronic (4) HTN (hypertension) Code(s): I10 - ESSENTIAL (PRIMARY) HYPERTENSION Status: Chronic (5) History of DVT (deep vein thrombosis) Code(s): Z86.718 - PERSONAL HISTORY OF OTHER VENOUS THROMBOSIS AND EMBOLISM Status: Chronic (6) Hypothyroid Code(s): E03.9 - HYPOTHYROIDISM, UNSPECIFIED Status: Chronic (7) Tricuspid regurgitation Code(s): I07.1 - RHEUMATIC TRICUSPID INSUFFICIENCY Status: Chronic Plan: Not present on current echo. (8) Myocardial infarction Code(s): I21.9 - ACUTE MYOCARDIAL INFARCTION, UNSPECIFIED Status: Acute Qualifiers: Myocardial infarction type: type 2 Qualified Code(s): I21.A1 - Myocardial infarction type 2 (9) CKD (chronic kidney disease), stage III Code(s): N18.3 - CHRONIC KIDNEY DISEASE, STAGE 3 (MODERATE) Status: Acute (10) Diabetes mellitus Code(s): E11.9 - TYPE 2 DIABETES MELLITUS WITHOUT COMPLICATIONS Status: Acute (11) Atrial fibrillation Code(s): I48.91 - UNSPECIFIED ATRIAL FIBRILLATION Status: Acute (12) Hypercalcemia Code(s): E83.52 - HYPERCALCEMIA Status: Acute (13) Hyperparathyroidism Code(s): E21.3 - HYPERPARATHYROIDISM, UNSPECIFIED Status: Acute (14) Dementia Code(s): F03.90 - UNSPECIFIED DEMENTIA WITHOUT BEHAVIORAL DISTURBANCE Status: Acute (15) Leukocytosis Code(s): D72.829 - ELEVATED WHITE BLOOD CELL COUNT, UNSPECIFIED Status: Acute - Plan Acute metabolic encephalopathy: Substantially improved. Is believe the patient is at her baseline. Appreciate neurology input. Pulmonary edema /congestive heart failure: Patient initially appeared to have some pulmonary edema and cardiomegaly. She was initially diuresed. Since that time she has been quite stable and has had no further problems. Nml echo this admission with no mention of TR. Cannot confirm this was CHF related. NSTEMI type II: Could be consistent with the decompensated heart failure picture. CKD stage III: Patient's GFR is consistent with her baseline. Atrial fibrillation: She did not initially appear to be in atrial fibrillation but now she definitely is on the monitor. She is now therapeutic with her warfarin. Diabetes mellitus type 2: Blood sugars are currently running high, but much improved. She is on Lantus, mild sliding scale and metformin. We will increase that to moderate. She does not have a history of DM. She has a hgb A1c of over 10. This has been undiagnosed and untreated. Could have contributed to the encephalopathy. Hyperparathyroidism / Hypercalcemia: Patient has moderate hypercalcemia. Could have potentially impacted her mental status. PTH intact is elevated. Vitamin D level is ok. 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 She will need monitoring of the calcium levels and when more stable a decision can be made regarding the need to workup for adenoma. Leukocytosis: Patient appears to have a history of leukocytosis when reviewing her previous labs. She has no other signs of infection and no fever. A little better. Disposition: Therapies recommended rehab. Patient was reluctant to go to SNF, but is now amenable. May be able to go over the weekend.
[2019-09-14] MEDS ORDERED: Senokot S 8.6-50 MG TAB PO PRN (19:37)
[2019-09-14] MEDS: Atorvastatin Calcium 10 MG TAB PO SCH (20:52)
[2019-09-15 05:04] LABS: INR-International Normal Ratio 2.3; Prothrombin Time 25.4 sec (12.0-14.7)
[2019-09-15] MEDS: Levothyroxine Sodium 100 MCG TAB PO SCH (05:39)
[2019-09-15] MEDS: HumaLOG 300 UNITS/3 ML VIAL SC PRN ×4 (06:13→20:52)
[2019-09-15] MEDS: metFORMIN 500 MG TAB PO SCH ×2 (09:14→17:39)
[2019-09-15] MEDS: Lisinopril/Hydrochlorothiazide 10 mg/12.5 mg Tablet PO SCH (09:15)
[2019-09-15] MEDS: Pantoprazole 40 MG GRANULES PACKET PO SCH (09:15)
[2019-09-15] MEDS: Furosemide 20 MG TAB PO SCH (09:15)
[2019-09-15] MEDS: Insulin Glargine 20 UNITS in Pre-Filled Syringe 1 EACH SC SCH (09:15)
[2019-09-15] MEDS: Metoprolol Tartrate 25 MG TAB PO SCH (09:15)
--- NOTE | 2019-09-15 16:07 | PDOC.HOSPP ---
- Subjective Subjective: Seen and examined. Patient alert and oriented times three. Patient has poor insight into her medical condition, though she does admit that she does not take her medications or control her diabetes as she is supposed to. [place] Patient with difficulty ambulating may benefit from inpatient rehabilitation. Neurology on case, recommendations appreciated. - Objective Vital Signs & Weight: Vital Signs (12 hours) Temp Pulse Pulse Resp BP BP Pulse Ox 09/15/19 12:00 98.9 F 74 14 111/57 L 97 09/15/19 10:27 91 132/78 09/15/19 09:15 77 09/15/19 08:00 97.8 F 73 15 125/69 97 Weight Admit Weight 232 lb Weight 225 lb 11.2 oz I&O: 09/14/19 09/15/19 09/16/19 06:59 06:59 06:59 Intake Total 480 1090 Output Total 1650 1100 Balance -1170 -10 Result Diagrams: 09/14/19 03:57 09/11/19 03:55 Additional Labs: Accuchecks 09/15/19 09/15/19 09/14/19 11:11 05:58 20:30 POC Glucose 247 H 220 H 194 H 09/14/19 16:45 POC Glucose 241 H Radiology Reviewed by me: Yes Hospitalist ROS - Review of Systems All other systems reviewed; all pertinent +/- noted in HPI/Subj - Medication Medications: Active Medications Generic Name Dose Route Start Last Admin Trade Name Freq PRN Reason Stop Dose Admin Atorvastatin Calcium 10 mg 09/10/19 21:00 09/14/19 20:52 Lipitor PO 10 mg HS WAQAR Administration Furosemide 20 mg 09/10/19 09:00 09/15/19 09:15 Lasix PO 20 mg QAM WAQAR Administration Lisinopril/HCTZ 1 tab 09/10/19 09:00 09/15/19 09:15 Prinizide 10-12.5 PO 1 tab DAILY WAQAR Administration Hydralazine HCl 5 mg 09/11/19 04:42 09/11/19 05:29 Apresoline SLOW IVP 5 mg Q6H PRN Administration Blood Pressure Insulin Glargine 20 units/ 0.2 mls @ 0 mls/hr 09/13/19 09:00 09/15/19 09:15 Miscellaneous Medication SC 0.2 mls QAM WAQAR Administration Insulin Human Lispro 0 units 09/09/19 23:20 09/13/19 22:28 Humalog SC 2 unit .BEDTIME SLIDING SC PRN Administration Bedtime Correctional Scale Insulin Human Lispro 0 units 09/11/19 14:45 09/15/19 12:24 Humalog SC 4 unit .MODERATE SLIDING SC PRN Administration Moderate Correctional Scale Levothyroxine Sodium 100 mcg 09/12/19 06:00 09/15/19 05:39 Synthroid PO 100 mcg 0600 WAQAR Administration Lorazepam 1 mg 09/09/19 15:03 09/10/19 02:00 Ativan SLOW IVP 1 mg Q4H PRN Administration Anxiety/Agitation Metformin HCl 500 mg 09/12/19 17:00 09/15/19 09:14 Glucophage PO 500 mg BID-WM WAQAR Administration Metoprolol Tartrate 25 mg 09/10/19 09:00 09/15/19 09:15 Lopressor PO 25 mg DAILY WAQAR Administration Pantoprazole Sodium 40 mg 09/12/19 09:00 09/15/19 09:15 Protonix PO 40 mg DAILY WAQAR Administration Warfarin Sodium 5 mg 09/12/19 17:00 09/14/19 17:45 Coumadin PO 5 mg MoWeFr@1700 [facility] Administration Warfarin Sodium 7.5 mg 09/11/19 17:00 09/13/19 17:42 Coumadin PO 7.5 mg SuTuThSa@1700 [facility] Administration - Exam General Appearance: NAD, awake alert Eye: anicteric sclera ENT: normocephalic atraumatic, moist mucosa Neck: supple, symmetric, no lymphadenopathy Heart: no murmur, no gallops, no rubs Respiratory: CTAB, no wheezes, no rales, no ronchi, normal chest expansion, no tachypnea Gastrointestinal: soft, non-tender, no guarding, no rigidity Extremities: 1+ LE edema Skin: no lesions, no rashes Neurological: cranial nerve grossly intact, no focal deficits Musculoskeletal: generalized weakness Psychiatric: A&O x 3, lethargic Hosp A/P (1) Altered mental status Code(s): R41.82 - ALTERED MENTAL STATUS, UNSPECIFIED Status: Acute (2) Atrial fibrillation Code(s): I48.91 - UNSPECIFIED ATRIAL FIBRILLATION Status: Acute (3) CKD (chronic kidney disease), stage III Code(s): N18.3 - CHRONIC KIDNEY DISEASE, STAGE 3 (MODERATE) Status: Acute (4) Dementia Code(s): F03.90 - UNSPECIFIED DEMENTIA WITHOUT BEHAVIORAL DISTURBANCE Status: Acute (5) Diabetes mellitus Code(s): E11.9 - TYPE 2 DIABETES MELLITUS WITHOUT COMPLICATIONS Status: Acute (6) Hypercalcemia Code(s): E83.52 - HYPERCALCEMIA Status: Acute (7) Hyperparathyroidism Code(s): E21.3 - HYPERPARATHYROIDISM, UNSPECIFIED Status: Acute (8) Leukocytosis Code(s): D72.829 - ELEVATED WHITE BLOOD CELL COUNT, UNSPECIFIED Status: Acute (9) Acute metabolic encephalopathy Code(s): G93.41 - METABOLIC ENCEPHALOPATHY Status: Resolved (10) Acute congestive heart failure Code(s): I50.9 - HEART FAILURE, UNSPECIFIED Status: Ruled-out (11) Dyslipidemia Code(s): E78.5 - HYPERLIPIDEMIA, UNSPECIFIED Status: Chronic (12) Gout Code(s): M10.9 - GOUT, UNSPECIFIED Status: Chronic (13) HTN (hypertension) Code(s): I10 - ESSENTIAL (PRIMARY) HYPERTENSION Status: Chronic (14) History of DVT (deep vein thrombosis) Code(s): Z86.718 - PERSONAL HISTORY OF OTHER VENOUS THROMBOSIS AND EMBOLISM Status: Chronic (15) Hypothyroid Code(s): E03.9 - HYPOTHYROIDISM, UNSPECIFIED Status: Chronic (16) Morbid obesity Code(s): E66.01 - MORBID (SEVERE) OBESITY DUE TO EXCESS CALORIES Status: Chronic (17) 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 Status: Chronic (18) Tricuspid regurgitation Code(s): I07.1 - RHEUMATIC TRICUSPID INSUFFICIENCY Status: Chronic - Plan Plan: medical unit with telemetry neurology consultation, recommendations appreciated neurologic workup has been benign metabolic workup consistent with uncontrolled diabetes patient is now alert and oriented times three though she has poor insight into her medical condition patient's physical deconditioning is significant to the point where I do not believe that she could take care of herself at this point alone, may benefit from a short course of inpatient therapy patient tells me that she has frequent falls, on Coumadin this is a relative contraindication if she is not closely monitored blood pressure control long and short acting insulin for glucose control G.I. prophylaxis DVT prophylaxis
[2019-09-15] MEDS: Warfarin Sodium 7.5 MG TAB PO SCH (17:39)
[2019-09-15] MEDS: Atorvastatin Calcium 10 MG TAB PO SCH (20:43)
[2019-09-16 04:30] LABS: INR-International Normal Ratio 2.1; Prothrombin Time 23.1 sec (12.0-14.7)
[2019-09-16] MEDS: Levothyroxine Sodium 100 MCG TAB PO SCH (05:23)
[2019-09-16] MEDS: HumaLOG 300 UNITS/3 ML VIAL SC PRN ×2 (05:53→12:48)
[2019-09-16] MEDS: metFORMIN 500 MG TAB PO SCH ×2 (09:21→17:18)
[2019-09-16] MEDS: Metoprolol Tartrate 25 MG TAB PO SCH (09:21)
[2019-09-16] MEDS: Lisinopril/Hydrochlorothiazide 10 mg/12.5 mg Tablet PO SCH (09:21)
[2019-09-16] MEDS: Pantoprazole 40 MG GRANULES PACKET PO SCH (09:21)
[2019-09-16] MEDS: Furosemide 20 MG TAB PO SCH (09:21)
[2019-09-16] MEDS: Insulin Glargine 10 UNITS in Pre-Filled Syringe 1 EACH SC SCH ×2 (09:22→20:40)
--- NOTE | 2019-09-16 15:46 | PDOC.HOSPP ---
- Subjective Subjective: Seen and examined. Patient's only complaint is rectal discomfort and states that she does not know if she has hemorrhoids or not. Patient has been moving her bowels. Patient breathing comfortably on room air. Will get her up with physical therapy and work on discharge planning. Patient tells me that she lives alone and has no family to help care for her. A short course of inpatient therapy may be beneficial to regain her strength and independence. - Objective Vital Signs & Weight: Vital Signs (12 hours) Temp Pulse Resp BP Pulse Ox 09/16/19 12:28 97.7 F 73 16 122/80 97 09/16/19 09:21 77 09/16/19 07:45 97.4 F L 85 14 141/80 H 95 09/16/19 03:50 94 L Weight Admit Weight 232 lb Weight 226 lb 11.2 oz I&O: 09/15/19 09/16/19 09/17/19 06:59 06:59 06:59 Intake Total 1090 1080 Output Total 1100 1800 900 Balance -10 -720 -900 Result Diagrams: 09/14/19 03:57 09/11/19 03:55 Additional Labs: Accuchecks 09/16/19 09/16/19 09/15/19 11:13 05:44 20:49 POC Glucose 226 H 186 H 227 H 09/15/19 17:01 POC Glucose 227 H Radiology Reviewed by me: Yes Hospitalist ROS - Review of Systems All other systems reviewed; all pertinent +/- noted in HPI/Subj - Medication Medications: Active Medications Generic Name Dose Route Start Last Admin Trade Name Freq PRN Reason Stop Dose Admin Atorvastatin Calcium 10 mg 09/10/19 21:00 09/15/19 20:43 Lipitor PO 10 mg HS WAQAR Administration Furosemide 20 mg 09/10/19 09:00 09/16/19 09:21 Lasix PO 20 mg QAM WAQAR Administration Lisinopril/HCTZ 1 tab 09/10/19 09:00 09/16/19 09:21 Prinizide 10-12.5 PO 1 tab DAILY WAQAR Administration Hydralazine HCl 5 mg 09/11/19 04:42 09/11/19 05:29 Apresoline SLOW IVP 5 mg Q6H PRN Administration Blood Pressure Insulin Glargine 10 units/ 0.1 mls @ 1 mls/hr 09/16/19 09:00 09/16/19 09:22 Miscellaneous Medication SC 0.1 mls BID WAQAR Administration Insulin Human Lispro 0 units 09/09/19 23:20 09/15/19 20:52 Humalog SC 2 unit .BEDTIME SLIDING SC PRN Administration Bedtime Correctional Scale Insulin Human Lispro 0 units 09/11/19 14:45 09/16/19 12:48 Humalog SC 4 unit .MODERATE SLIDING SC PRN Administration Moderate Correctional Scale Levothyroxine Sodium 100 mcg 09/12/19 06:00 09/16/19 05:23 Synthroid PO 100 mcg 0600 WAQAR Administration Lorazepam 1 mg 09/09/19 15:03 09/10/19 02:00 Ativan SLOW IVP 1 mg Q4H PRN Administration Anxiety/Agitation Metformin HCl 1,000 mg 09/16/19 08:00 09/16/19 09:21 Glucophage PO 1,000 mg BID-WM WAQAR Administration Metoprolol Tartrate 25 mg 09/10/19 09:00 09/16/19 09:21 Lopressor PO 25 mg DAILY WAQAR Administration Pantoprazole Sodium 40 mg 09/12/19 09:00 09/16/19 09:21 Protonix PO 40 mg DAILY WAQAR Administration Sodium Chloride 10 ml 09/16/19 09:00 09/16/19 09:21 Flush - Normal Saline IVF 10 ml Q12HR WAQAR Administration Warfarin Sodium 5 mg 09/12/19 17:00 09/14/19 17:45 Coumadin PO 5 mg MoWeFr@1700 WAQAR Administration Warfarin Sodium 7.5 mg 09/11/19 17:00 09/15/19 17:39 Coumadin PO 7.5 mg SuTuThSa@1700 WAQAR Administration - Exam General Appearance: NAD, awake alert Eye: PERRL ENT: normocephalic atraumatic, moist mucosa Neck: supple, symmetric, no lymphadenopathy Heart: no murmur, no gallops, no rubs Respiratory: CTAB, no wheezes, no rales, no ronchi, normal chest expansion, no tachypnea Gastrointestinal: soft, non-tender, no guarding, no rigidity Extremities: 1+ LE edema Skin: no lesions, no rashes Neurological: cranial nerve grossly intact, no focal deficits Musculoskeletal: generalized weakness Psychiatric: normal affect, A&O x 3 Psychiatric - other findings: Poor insight into clinical condition Hosp A/P (1) Altered mental status Code(s): R41.82 - ALTERED MENTAL STATUS, UNSPECIFIED Status: Acute (2) Atrial fibrillation Code(s): I48.91 - UNSPECIFIED ATRIAL FIBRILLATION Status: Acute (3) CKD (chronic kidney disease), stage III Code(s): N18.3 - CHRONIC KIDNEY DISEASE, STAGE 3 (MODERATE) Status: Acute (4) Dementia Code(s): F03.90 - UNSPECIFIED DEMENTIA WITHOUT BEHAVIORAL DISTURBANCE Status: Acute (5) Diabetes mellitus Code(s): E11.9 - TYPE 2 DIABETES MELLITUS WITHOUT COMPLICATIONS Status: Acute (6) Hypercalcemia Code(s): E83.52 - HYPERCALCEMIA Status: Acute (7) Hyperparathyroidism Code(s): E21.3 - HYPERPARATHYROIDISM, UNSPECIFIED Status: Acute (8) Leukocytosis Code(s): D72.829 - ELEVATED WHITE BLOOD CELL COUNT, UNSPECIFIED Status: Acute (9) Acute metabolic encephalopathy Code(s): G93.41 - METABOLIC ENCEPHALOPATHY Status: Resolved (10) Acute congestive heart failure Code(s): I50.9 - HEART FAILURE, UNSPECIFIED Status: Ruled-out (11) Dyslipidemia Code(s): E78.5 - HYPERLIPIDEMIA, UNSPECIFIED Status: Chronic (12) Gout Code(s): M10.9 - GOUT, UNSPECIFIED Status: Chronic (13) HTN (hypertension) Code(s): I10 - ESSENTIAL (PRIMARY) HYPERTENSION Status: Chronic (14) History of DVT (deep vein thrombosis) Code(s): Z86.718 - PERSONAL HISTORY OF OTHER VENOUS THROMBOSIS AND EMBOLISM Status: Chronic (15) Hypothyroid Code(s): E03.9 - HYPOTHYROIDISM, UNSPECIFIED Status: Chronic (16) Morbid obesity Code(s): E66.01 - MORBID (SEVERE) OBESITY DUE TO EXCESS CALORIES Status: Chronic (17) 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 Status: Chronic (18) Tricuspid regurgitation Code(s): I07.1 - RHEUMATIC TRICUSPID INSUFFICIENCY Status: Chronic - Plan Plan: medical unit with telemetry PT/OT evdona May benefit from sub acute placement in SNF or Swing bed to continue to work with therapy and regain her independence Medically stable for lower level of care at any point neurology consultation, recommendations appreciated neurologic workup has been benign metabolic workup consistent with uncontrolled diabetes patient is now alert and oriented times three though she has poor insight into her medical condition patient's physical deconditioning is significant to the point where I do not believe that she could take care of herself at this point alone, may benefit from a short course of inpatient therapy patient tells me that she has frequent falls, on Coumadin this is a relative contraindication if she is not closely monitored blood pressure control long and short acting insulin for glucose control G.I. prophylaxis DVT prophylaxis
[2019-09-16] MEDS: Warfarin Sodium 7.5 MG TAB PO SCH (17:18)
[2019-09-16] MEDS: Atorvastatin Calcium 10 MG TAB PO SCH (20:41)
[2019-09-17 04:50] LABS: Prothrombin Time 22.8 sec (12.0-14.7)
[2019-09-17] MEDS: Levothyroxine Sodium 100 MCG TAB PO SCH (05:10)
[2019-09-17] MEDS: HumaLOG 300 UNITS/3 ML VIAL SC PRN ×2 (06:18→12:17)
[2019-09-17] MEDS: Lisinopril/Hydrochlorothiazide 10 mg/12.5 mg Tablet PO SCH ×2 (09:01→12:14)
[2019-09-17] MEDS: Pantoprazole 40 MG GRANULES PACKET PO SCH (09:01)
[2019-09-17] MEDS: Furosemide 20 MG TAB PO SCH (09:01)
[2019-09-17] MEDS: metFORMIN 500 MG TAB PO SCH (09:01)
[2019-09-17] MEDS: Insulin Glargine 10 UNITS in Pre-Filled Syringe 1 EACH SC SCH (09:02)
[2019-09-17] MEDS: Metoprolol Tartrate 25 MG TAB PO SCH ×2 (09:03→12:14)
[2019-09-17 13:36] VITALS: BMI 36.5
[2019-09-17 15:27] VITALS: BP 121/63; TEMP 97.2
--- NOTE | 2019-09-18 11:23 | DIS ---
DATE OF ADMISSION: 09/09/2019 DATE OF DISCHARGE: 09/17/2019 DISCHARGE DISPOSITION: [facility] bed. PRIMARY DISCHARGE DIAGNOSES: 1. Acute metabolic encephalopathy, resolved. 2. Congestive heart failure exacerbation with diastolic dysfunction. 3. Non-ST elevation myocardial infarction type 2 secondary to decompensated heart failure. 4. Chronic kidney disease stage 3. 5. Chronic atrial fibrillation. 6. Diabetes mellitus type 2. 7. Hypocalcemia with suspicion for primary hypoparathyroidism for further workup as outpatient. 8. Dementia. 9. Hypothyroidism. 10. Hypertension. 11. Dyslipidemia. PROCEDURES DONE DURING HOSPITALIZATION: CT brain done on the day of admission showed no acute intracranial abnormality. Chest x-ray done showed pulmonary vascular congestion with cardiomegaly. Echo with 2D Doppler showed an ejection fraction of 50% to 55%. Left atrium was moderate to severely dilated. MRI brain without contrast done showed no acute intracranial abnormality. Blood cultures x2, no growth. Urine culture, no growth. Had a white count of 20 on the 20 of August, H and H 17 and 55, platelet count 189. Discharge white count of 12. PT/INR 22 and 2.0. HbA1c 9.5. Intact PTH 159.5 which is elevated. BUN 17 and creatinine 0.9 on the . BNP 272. 25-hydroxyvitamin D levels were 34.3 ng/mL which is within normal range. COVID-19 PCR was not detected. DISCHARGE MEDICATIONS: 1. Lasix 20 mg p.o. q.a.m. 2. Levothyroxine 100 mcg p.o. daily. 3. Lisinopril with hydrochlorothiazide 10/12.5 mg p.o. daily. 4. Metoprolol tartrate 25 mg daily. 5. Pravachol 40 mg p.o. at bedtime. 6. Coumadin 5 and 7.5 mg. The patient needs to follow the schedule as before. 7. Lantus 10 units subcu twice daily. 8. Metformin 1000 mg twice daily. 9. Protonix 40 mg daily. 10. Senokot-S 2 tabs twice daily. ALLERGIES: NO KNOWN DRUG ALLERGIES. INPATIENT CONSULT: Dr. Sweeney for Neurology. DISCHARGE PLAN: The patient to follow up with her primary care physician, Dr. Charissa Lopez in 2 weeks. BRIEF COURSE DURING HOSPITALIZATION: The patient initially got admitted on the 24th after she was brought in for altered mental state. She has had a complete workup done during her stay as mentioned above including COVID-19 PCR which was negative. She had CHF exacerbation with diastolic dysfunction which has resolved, for which she was gently diuresed. Her echo with 2D Doppler done showed normal ejection fraction. Prior to discharge, she was communicating well. The patient has underlying dementia as well. She is being discharged to [facility] bed for further recuperation prior to going home. She is deconditioned and needs to ambulate. Her medications were optimized during her stay here. She has otherwise remained hemodynamically stable. She has been eating well prior to discharge. A total of 35 minutes was spent on discharge plan. Please see a [id number] documentation for the day of discharge on [employer]. Job ID: [id number]
== END 2019-09-17 16:10 | disposition swing bed (61) | DRG 280 ==
LOC: ERS 10:17 → OBSVTOIN 12:34 → 2SW 12:34 → 2NO 09-10 21:10
PROVIDERS: ADMIT Internal Medicine; ATTEND Internal Medicine
DX: I13.0 Hypertensive heart and chronic kidney disease with heart failure and stage 1 through stage 4 chronic kidney disease, or unspecified chronic kidney disease (principal); I50.33 Acute on chronic diastolic (congestive) heart failure; I21.A1 Myocardial infarction type 2; G93.41 Metabolic encephalopathy; I48.20 Chronic atrial fibrillation, unspecified; Z66 Do not resuscitate; Z20.828 Contact with and (suspected) exposure to other viral communicable diseases; N18.3 Chronic kidney disease, stage 3 (moderate); E11.22 Type 2 diabetes mellitus with diabetic chronic kidney disease; F03.90 Unspecified dementia, unspecified severity, without behavioral disturbance, psychotic disturbance, mood disturbance, and anxiety; E03.9 Hypothyroidism, unspecified; E78.5 Hyperlipidemia, unspecified; Z96.643 Presence of artificial hip joint, bilateral; I07.1 Rheumatic tricuspid insufficiency; E21.3 Hyperparathyroidism, unspecified; E66.01 Morbid (severe) obesity due to excess calories; D72.829 Elevated white blood cell count, unspecified; E78.00 Pure hypercholesterolemia, unspecified; Z79.02 Long term (current) use of antithrombotics/antiplatelets; Z86.711 Personal history of pulmonary embolism; Z68.36 Body mass index [BMI] 36.0-36.9, adult
CPT/HCPCS: 12001; 36415; 36416; 70450; 70551; 71045; 80048; 80053; 81003; 82306; 82553; 82805; 83036; 83605; 83690; 83880; 83970; 84443; 84484; 85007; 85025; 85027; 85610; 85730; 87040; 87086; 87635; 93005; 93306; 93798; 95712; 95816; 95819; 95957; 96365; A4353; J0360; J0696; J1815; J1940; J2060; J3480; J7050; U0003

== ENCOUNTER 2020-01-18 17:05 | Inpatient (IN) | payer MEDICARE, OTHER ==
[2020-01-18 18:08] LABS: PTT 61.9 sec (22.9-36.1); Prothrombin Time 54.5 sec (12.0-14.7)
[2020-01-18 18:23] LABS: INR-International Normal Ratio 6.3
--- NOTE | 2020-01-18 18:25 | CT ---
CT HEAD WITHOUT CONTRAST 01/18/20 INDICATIONS: Mental status change. COMPARISON: 09/10/19. FINDINGS: The ventricles have normal size and position. No evidence of intracranial mass or hemorrhage. No evid ence of infarct. No evidence of significant interval change. There is opacification of the right sphenoid sinus which is also a stable finding. The other paranasa l sinuses are clear. There is also opacification of the left mastoid air cells which is stable from the prior exam. IMPRESSION: 1. No acute intracranial process. 2. Mucosal edema in the sphenoid sinuses and the left mastoid sinuses are stable in appearance f rom the 09/10/19 exam. POS: AGW
[2020-01-18 18:48] LABS: CKMB 22.3 ng/mL (0-6.6)
[2020-01-18 19:30] LABS: Actual Bicarbonate (HCO3a) 6.1 mEq/L (22-28); Analyzer IN Cardio ER; Base Excess (BEa) -22.1 mEq/L (-2.0 to +3.0); Calcium, Ionized (arterial) 0.99 mmol/L (1.12-1.30); Carboxyhemoglobin (COHb) 0.3 gm% (0.0-3.0); Hemoglobin (Hb) 11.8 g/dL (12.0-16.0); O2 Tension (PaO2), arterial 109.5 mmHg (> 60.0); Potassium - ABG Lab 4.44 mmol/L (3.70-5.30)
[2020-01-18 19:32] LABS: CO2 Tension 20.8 mmHg (35.0-45.0); Puncture Site R RADIAL; pH, Arterial 7.08 (7.35-7.45)
[2020-01-18] MEDS ORDERED: Sodium Bicarb 50 MEQ/50 ML VIAL ONE (19:59)
[2020-01-18] MEDS ORDERED: Sodium Bicarbonate 150 MEQ in Dextrose 5 %-0.45 % NaCl 1,000 ML IV SCH (20:00)
[2020-01-18] MEDS ORDERED: Sodium Bicarb 50 MEQ/50 ML Abboject 8.4% SYRINGE IVP SCH (20:15)
[2020-01-18 21:13] LABS: ALT (SGPT) 18 U/L (8-55); AST (SGOT) 26 U/L (5-34); Albumin 3.4 g/dL (3.4-4.8); Alkaline Phosphatase 69 U/L (40-110); BUN (Urea Nitrogen) 69 mg/dL (9.8-20.1); Bilirubin, Total 0.5 mg/dL (0.2-1.2); Calc. Creatinine Clearance 12 mL/min (70-130); Calcium 7.6 mg/dL (7.8-10.44); Chloride 93 mmol/L (98-107); Estimated GFR-MDRD 8; Globulin 2.9 g/dL (2.4-3.5); Glucose 242 mg/dL (83-110); Potassium 4.7 mmol/L (3.5-5.1); Protein, Total 6.3 g/dL (6.0-8.3); Sodium 136 mmol/L (136-145)
[2020-01-18 21:26] LABS: Carbon Dioxide Less than 8 mmol/L (23-31)
[2020-01-18 21:26] LABS: Lactic Acid 14.4 mmol/L (0.5-2.2)
[2020-01-18] MEDS ORDERED: Piperacillin/Tazobactam 4.5 GM in Sodium Chloride 0.9% 100 ML IVPB SCH (22:00)
[2020-01-18] MEDS: Piperacillin/Tazobactam 2.25 GM in Sodium Chloride 0.9% 100 ML IVPB SCH (22:19)
--- NOTE | 2020-01-18 22:42 | PDOC.HHP ---
Hospitalist HPI - History of Present Illness AMS History of Present Illness: This is an 89-year-old female patient with a history of Atrial fibrillation on Coumadin, pulmonary embolism, dementia and hypothyroidism who was transferred from [facility] on account of altered mental status. She was sent to the facility from a long-term after she was noted to be hypoglycemic with glucose in the 40s. Of note she had a urinalysis done 2 days ago which results have not been reported yet. She also had a COVID screen then which was negative. At presentation to [place] she was AMS with white blood cells of 20.1, lactic acid of 14.6, anion gap of 44, creatinine 5.08 and BUN 67. Her BNP was 381 with troponin elevated at 0.063. Urinalysis was done which did not show any indication of urinary tract infection She was in A. fib with RVR with heart rate in the 130s. She was given 10 mg Cardizem push. She also received vancomycin and cefepime prior to transfer. At presentation she was deeply altered. CT scan of the head was negative for any acute events. She was saturating normally on room air however she was hypothermic with temperature of 94.8. She was given IV fluids at 30 mils per KG and continued on 100 mils per hour. Hospitalist team was consulted for admission. Hospitalist ROS - Review of Systems ROS unobtainable: due to mental status - Medication Medications: Active Medications Generic Name Dose Route Start Last Admin Trade Name Freq PRN Reason Stop Dose Admin Sodium Bicarbonate 150 meq/ 1,150 mls @ 200 mls/hr 01/18/20 20:00 01/18/20 22 :20 Dextrose/Sodium Chloride IV 01/19/20 01:44 1,150 mls .Q5H45M WAQAR Administration Piperacillin Sod/Tazobactam 100 mls @ 200 mls/hr 01/18/20 22:00 01/18/20 22:19 Sod 2.25 gm/ Sodium Chloride IVPB 100 mls Q8HR WAQAR Administration Medications: As per ambulatory order recordsyet to be verified. Allergies: No known drug allergies Hospitalist History - Past Medical History Cardiac: reports: AFIB Endocrine: reports: Diabetes, Hypothyroidism - Past Surgical History Past Surgical History: reports: Total Hip Replacement (Bilateral), Other (Carpal tunnel release bilateral) - Social History Alcohol: reports: None Drugs: reports: none - Exam General - other findings: Opens eyes to painful stimulus otherwise generally altered. Eye - other findings: Pupils symmetrical responsive light Neck: supple, no JVD, no thyromegaly, no lymphadenopathy Heart: no murmur, no gallops, normal peripheral pulses, irregular Respiratory: no wheezes, no rales, no ronchi, normal chest expansion, no tachypnea Gastrointestinal: soft, non-distended, normal bowel sounds, no palpable masses, no hepatomegaly Extremities: no cyanosis, no clubbing, no edema Hospitalist Results - Labs Result Diagrams: 01/18/20 20:43 Lab results: ABG pH 7.08 (7.35-7.45) L* 01/18/20 19:22 ABG pCO2 20.8 mmHg (35.0-45.0) L* 01/18/20 19:22 ABG pO2 109.5 mmHg (> 60.0) H 01/18/20 19:22 Sodium 136 mmol/L (136-145) 01/18/20 20:43 Potassium 4.7 mmol/L (3.5-5.1) 01/18/20 20:43 Chloride 93 mmol/L (98-107) L 01/18/20 20:43 Carbon Dioxide Less than 8 mmol/L (23-31) L* 01/18/20 20:43 BUN 69 mg/dL (9.8-20.1) H 01/18/20 20:43 Creatinine 4.90 mg/dL (0.6-1.1) H 01/18/20 20:43 Glucose 242 mg/dL (83-110) H 01/18/20 20:43 Lactic Acid 14.4 mmol/L (0.5-2.2) H* 01/18/20 20:47 Calcium 7.6 mg/dL (7.8-10.44) L 01/18/20 20:43 Total Bilirubin 0.5 mg/dL (0.2-1.2) 01/18/20 20:43 AST 26 U/L (5-34) 01/18/20 20:43 ALT 18 U/L (8-55) 01/18/20 20:43 Alkaline Phosphatase 69 U/L (40-110) 01/18/20 20:43 Ammonia 46 umol/L (18-72) 01/18/20 19:04 CK-MB (CK-2) 22.3 ng/mL (0-6.6) H* 01/18/20 17:52 Troponin I 0.046 ng/mL (< 0.028) H 01/18/20 17:52 Serum Total Protein 6.3 g/dL (6.0-8.3) 01/18/20 20:43 Albumin 3.4 g/dL (3.4-4.8) 01/18/20 20:43 Hospitalist H&P A/P - Plan Plan: This is an 89-year-old female patient transferred from [facility] on account of altered mental status with severe sepsis. Severe sepsis Leukocytosis, tachycardia, altered mental status and elevated lactic Source unknown at the moment. Urine and chest x-ray within normal limits. Lactate above 14 We will continue IV fluid resuscitation Continue antibiotics on vancomycin and Zosyn Follow-up on cultures, trend lactic Close monitoring in CCU. Pulmonology consulteddiscussed with familyDNR A. fib with RVR Likely secondary sepsis Treat underlying sepsis Heart rate currently in the 110s To start Cardizem drip if RVR is persistent and blood pressure allows. Close monitoring in CCU Acute encephalopathy Likely secondary to sepsis CT head negative Treat underlying sepsis. Supratherapeutic INR INR 6.3 Hold warfarin Monitor INR in a.m. Diabetes mellitus Continue on correctional dosing for now. Hypoglycemia Outside facility Close monitoring of glucose. VT prophylaxisnonesupratherapeutic INR CODE STATUSDNR
--- NOTE | 2020-01-18 22:48 | CON ---
DATE OF CONSULTATION: 01/18/2020 REASON FOR CONSULTATION: Sepsis, metabolic acidosis. HISTORY OF PRESENT ILLNESS: The patient is an 89-year-old female, who lives in a nursing facility. She apparently has been hypoglycemic. I believe she told skilled nursing staff earlier in the week that she had painful urination. Based on that had urine study, but had not started antibiotics at the time of transfer to the hospital today. In the hospital, she was noted to have severe lactic acidosis with acute renal failure, elevated BNP along with atrial fibrillation with rapid ventricular response. She has been DNR during previous hospitalizations. I spoke to Mr. Jay, who is her life partner and her medical power of auto finance sales rep and told him that she was doing very badly and he agreed to do not resuscitated measures aside from defibrillation, which he was okay with doing. PAST MEDICAL HISTORY: 1. Atrial fibrillation. 2. Advanced age. 3. Pulmonary embolism. 4. Dementia. 5. Hypothyroidism. 6. Diabetes. PAST SURGICAL HISTORY: 1. Total hip replacement. 2. Carpal tunnel release. FAMILY MEDICAL HISTORY: Unremarkable. SOCIAL HISTORY: Lives in a skilled nursing. Does not smoke. Does not use illicit drugs. MEDICATIONS: Prior to admission; 1. Atorvastatin 10 mg daily. 2. Baclofen 10 mg daily. 3. Fluconazole 150 mg daily. 4. Furosemide 40 mg twice daily. 5. Loratadine 10 mg daily. 6. Lantus insulin 10 units subcu twice daily. 7. Levothyroxine 100 mcg daily. 8. Metformin 1000 mg b.i.d. 9. Protonix 40 mg daily. 10. Sertraline 25 mg daily. 11. Tramadol 50 mg every 6 hours as needed. 12. Warfarin 5 mg daily. 13. Systane eye drops. 14. Triamcinolone cream. 15. Nystatin cream. 16. Zofran 4 mg as needed. REVIEW OF SYSTEMS: Cannot be obtained because the patient is obtunded. PHYSICAL EXAMINATION: VITAL SIGNS: Temperature 97.0, pulse 119, blood pressure 127/72, and O2 saturation 100% on room air. GENERAL: This is an elderly lady, who is unkept. HEENT: She has severe oropharyngeal congestion. NECK: No adenopathy or JVD. LUNGS: Clear anteriorly. CARDIOVASCULAR: S1 and S2. Irregularly irregular. Somewhat tachycardic. ABDOMEN: Soft and nontender. EXTREMITIES: No clubbing, cyanosis, or edema. LABORATORY DATA: White blood cell count 20, hematocrit 36.7, and platelet count 312 with 91% neutrophils and 2% bands. A pH of 7.08, pCO2 of 20, and pO2 of 109. Sodium 127, potassium 4, chloride 95, CO2 of 8, BUN 67, creatinine 5.1, glucose 117, and lactate 13.4. BNP 381. Urinalysis approximately shows no white blood cells. There is 3+ bacteria. COVID-19 test has not been done since August, but at that time was negative. Chest x-ray shows no mass, effusion, or infiltrate. ASSESSMENT: 1. Sepsis syndrome. 2. Acute renal failure. 3. Dehydration. 4. Severe metabolic acidosis. 5. Advanced age. 6. Chronic atrial fibrillation. PLAN: I discussed with Dr. Casey. The patient is going to be started on vancomycin and piperacillin. These doses need to be adjusted for her renal function. She is on serum bicarbonate drip. She has been made DNR aside from cardioversion. Prognosis is quite poor for functional recovery. Job ID: [id number]
[2020-01-18] MEDS ORDERED: Dextrose 5% in Water 1,000 ML IV PRN (22:59)
[2020-01-18] MEDS ORDERED: Dextrose 50% Abboject 50 ML SYRINGE SLOW IVP PRN (22:59)
[2020-01-19] MEDS: HumaLOG 300 UNITS/3 ML VIAL SC PRN ×5 (01:10→21:47)
[2020-01-19] MEDS: Sodium Bicarbonate 150 MEQ in Dextrose 5 %-0.45 % NaCl 1,000 ML IV SCH ×4 (03:31→22:36)
[2020-01-19 04:04] LABS: Lactic Acid 13.2 mmol/L (0.5-2.2)
[2020-01-19] MEDS: Piperacillin/Tazobactam 2.25 GM in Sodium Chloride 0.9% 100 ML IVPB SCH ×3 (05:56→21:39)
--- NOTE | 2020-01-19 08:18 | PRG ---
DATE OF SERVICE: 01/19/2020 SUBJECTIVE: This patient remains in the critical care unit. She is sleeping quietly. No particular issues overnight. OBJECTIVE: VITAL SIGNS: Temperature 97.7, pulse 103, blood pressure 106/75, and O2 saturation 99%. HEENT: Unremarkable except for snoring noise. NECK: No adenopathy or JVD. CHEST: Clear. CARDIAC: S1 and S2, slightly irregular. ABDOMEN: Soft. EXTREMITIES: No edema. LABORATORY DATA: The last laboratory check was a lactate at 3 o'clock this morning, which was 13.2. There is no chemistry or CBC from this morning. Her last INR was 6.3. ASSESSMENT: Sepsis versus dehydration. PLAN: 1. The patient needs to have her labs rechecked. 2. Continue IV fluids with bicarbonate. 3. Continue antibiotics. 4. Needs to have her INR rechecked as she was anticoagulated at the time of admission and her INR was severely elevated. 5. She remains DNR. Job ID: [id number]
[2020-01-19 08:31] LABS: #Lymphocytes 1.1 thou/uL (1.20-3.40); #Monocytes 1.2 thou/uL (0.11-0.59); #Neutrophils 15.1 thou/uL (1.40-6.50); %Basophils 0.2 % (0.0-1.0); %Eosinophils 0.1 % (0.0-10.0); %Lymphocytes 6.5 % (21.0-51.0); %Monocytes 6.7 % (0.0-10.0); %Neutrophils 86.5 % (42.0-75.0); Hemoglobin 10.8 g/dL (12.0-16.0); Mean Corpuscular HGB CONC 32.1 g/dL (32.0-36.0); Mean Corpuscular Hemoglobin 30.8 pg (27.0-31.0); Mean Corpuscular Volume 95.8 fL (78.0-98.0); Mean Platelet Volume 9.9 fL (7.4-10.4); Platelet Count 237 thou/uL (130-400); RBC Distribution Width 12.5 % (11.5-14.5); Red Blood Cell (RBC) Count 3.51 mill/uL (4.20-5.40); White Blood Cell (WBC) Count 17.4 thou/uL (4.8-10.8)
[2020-01-19 08:39] LABS: Prothrombin Time 77.7 sec (12.0-14.7)
[2020-01-19 08:50] LABS: Lactic Acid 13.2 mmol/L (0.5-2.2)
[2020-01-19 08:53] LABS: ALT (SGPT) 18 U/L (8-55); AST (SGOT) 23 U/L (5-34); Albumin 3.2 g/dL (3.4-4.8); Alkaline Phosphatase 62 U/L (40-110); Anion Gap 39 mmol/L (10-20); BUN (Urea Nitrogen) 72 mg/dL (9.8-20.1); Bilirubin, Total 0.5 mg/dL (0.2-1.2); Calc. Creatinine Clearance 12 mL/min (70-130); Calcium 7.3 mg/dL (7.8-10.44); Carbon Dioxide 11 mmol/L (23-31); Chloride 92 mmol/L (98-107); Estimated GFR-MDRD 8; Globulin 2.6 g/dL (2.4-3.5); Glucose 195 mg/dL (83-110); Potassium 4.2 mmol/L (3.5-5.1); Protein, Total 5.8 g/dL (6.0-8.3); Sodium 138 mmol/L (136-145)
[2020-01-19] MEDS ORDERED: Phytonadione 10 MG/ML AMP PO SCH (10:15)
[2020-01-19 12:10] LABS: SARS-CoV-2 MS2 Positive; SARS-CoV-2 N Gene Negative; SARS-CoV-2 S Gene Negative; SARS-CoV-2 by NAA Not Detected (NotDetected); SARS-CoV-2 orf1ab Negative
[2020-01-19 14:13] LABS: Vancomycin, Random 8.7 ug/mL (See Comment)
--- NOTE | 2020-01-19 14:38 | PDOC.HOSPP ---
- Subjective Encounter Date: 01/19/20 Encounter Time: 08:20 Subjective: Patient seen for follow-up for severe sepsis. Patient unable to answer questions, could not complete review of systems. - Objective Vital Signs & Weight: Vital Signs (12 hours) Temp Pulse Ox 01/19/20 14:00 98.6 F 01/19/20 07:58 100 01/19/20 07:00 97.7 F 01/19/20 04:00 98.0 F Weight Weight 220 lb 7.396 oz Most Recent Monitor Data Heart Rate from ECG 93 NIBP 153/75 NIBP BP-Mean 101 Respiration from ECG 21 SpO2 99 I&O: 01/18/20 01/19/20 01/20/20 06:59 06:59 06:59 Intake Total 1750 Output Total 555 217 Balance 1195 -217 Result Diagrams: 01/19/20 08:19 01/19/20 08:19 Additional Labs: Accuchecks 01/19/20 01/19/20 01/19/20 13:20 04:30 00:45 POC Glucose 168 H 222 H 249 H 01/18/20 17:32 POC Glucose 203 H I reviewed patient's labs and MAR Hospitalist ROS - Review of Systems ROS unobtainable: due to mental status - Medication Medications: Active Medications Generic Name Dose Route Start Last Admin Trade Name Freq PRN Reason Stop Dose Admin Piperacillin Sod/Tazobactam 100 mls @ 200 mls/hr 01/18/20 22:00 01/19/20 13:45 Sod 2.25 gm/ Sodium Chloride IVPB 100 mls Q8HR WAQAR Administration Sodium Bicarbonate 150 meq/ 1,150 mls @ 200 mls/hr 01/19/20 03:00 01/19/20 14:35 Dextrose/Sodium Chloride IV 1,150 mls .Q5H45M WAQAR Administration Insulin Human Lispro 0 units 01/18/20 23:03 01/19/20 13:33 Humalog 300 Units/3 Ml Vial SC 2 unit .MILD SLIDING SCALE PRN Administration Mild Correctional Scale - Exam General - other findings: Obese Eye: anicteric sclera ENT: moist mucosa Neck: supple Heart: RRR Respiratory: CTAB Gastrointestinal: soft, non-tender Skin: no rashes Neurological - other findings: Unable to assess Psychiatric - other findings: Unable to assess Hosp A/P - Plan Severe sepsis No clear source of infection. Continue IV Zosyn and IV vancomycin. Continue IV fluid resuscitation Follow blood cultures. A. fib with RVR Patient's INR was supratherapeutic at the time of admission, administer vitamin K, no evidence of bleeding. Digoxin versus Cardizem depending on blood pressure, if heart rate remains high. Supratherapeutic INR Administer vitamin K, recheck PT/INR. Diabetes mellitus Continue Accu-Cheks and insulin sliding scale. Hypoglycemia Resolved.
[2020-01-19] MEDS ORDERED: Vancomycin 1 GM in Premix Bag 1 BAG IVPB SCH (15:00)
[2020-01-19] MEDS ORDERED: Vancomycin HCl 1.25 GM in Sodium Chloride 0.9% 250 ML 250 ML IVPB SCH (15:00)
[2020-01-19 15:27] LABS: Lactic Acid 11.7 mmol/L (0.5-2.2)
[2020-01-19 21:58] LABS: Lactic Acid 11.4 mmol/L (0.5-2.2)
[2020-01-20 03:47] LABS: #Lymphocytes 0.8 thou/uL (1.20-3.40); #Monocytes 0.9 thou/uL (0.11-0.59); #Neutrophils 12.6 thou/uL (1.40-6.50); %Eosinophils 0.1 % (0.0-10.0); %Lymphocytes 5.5 % (21.0-51.0); %Monocytes 6.2 % (0.0-10.0); %Neutrophils 88.1 % (42.0-75.0); Hemoglobin 10.5 g/dL (12.0-16.0); Mean Corpuscular HGB CONC 34.2 g/dL (32.0-36.0); Mean Corpuscular Hemoglobin 31.7 pg (27.0-31.0); Mean Corpuscular Volume 92.5 fL (78.0-98.0); Mean Platelet Volume 9.7 fL (7.4-10.4); Platelet Count 226 thou/uL (130-400); RBC Distribution Width 12.7 % (11.5-14.5); Red Blood Cell (RBC) Count 3.31 mill/uL (4.20-5.40); White Blood Cell (WBC) Count 14.3 thou/uL (4.8-10.8)
[2020-01-20] MEDS: Sodium Bicarbonate 150 MEQ in Dextrose 5 %-0.45 % NaCl 1,000 ML IV SCH ×2 (04:10→09:01)
[2020-01-20 04:15] LABS: ALT (SGPT) 16 U/L (8-55); AST (SGOT) 20 U/L (5-34); Alkaline Phosphatase 61 U/L (40-110); Anion Gap 34 mmol/L (10-20); BUN (Urea Nitrogen) 70 mg/dL (9.8-20.1); Bilirubin, Total 0.5 mg/dL (0.2-1.2); Calc. Creatinine Clearance 12 mL/min (70-130); Carbon Dioxide 24 mmol/L (23-31); Chloride 91 mmol/L (98-107); Estimated GFR-MDRD 8; Globulin 2.6 g/dL (2.4-3.5); Glucose 234 mg/dL (83-110); Potassium 3.5 mmol/L (3.5-5.1); Protein, Total 5.6 g/dL (6.0-8.3); Sodium 145 mmol/L (136-145)
[2020-01-20 04:24] LABS: Prothrombin Time 62.7 sec (12.0-14.7)
[2020-01-20 04:28] LABS: INR-International Normal Ratio 7.5
[2020-01-20] MEDS: Piperacillin/Tazobactam 2.25 GM in Sodium Chloride 0.9% 100 ML IVPB SCH ×3 (05:29→23:47)
[2020-01-20] MEDS: HumaLOG 300 UNITS/3 ML VIAL SC PRN ×3 (06:32→12:42)
[2020-01-20 07:00] LABS: Lactic Acid 9.8 mmol/L (0.5-2.2)
[2020-01-20] MEDS ORDERED: Sodium Bicarbonate 75 MEQ in Sodium Chloride 0.45% 1,000 ML IV SCH (09:00)
[2020-01-20 09:04] LABS: Actual Bicarbonate (HCO3a) 29.3 mEq/L (22-28); Base Excess (BEa) 5.8 mEq/L (-2.0 to +3.0); CO2 Tension 38.2 mmHg (35.0-45.0); Carboxyhemoglobin (COHb) 0.3 gm% (0.0-3.0); Hemoglobin (Hb) 11.2 g/dL (12.0-16.0); Potassium - ABG Lab 3.25 mmol/L (3.70-5.30)
[2020-01-20 09:11] LABS: O2 Tension (PaO2), arterial 51.5 mmHg (> 60.0); Puncture Site RRAD
[2020-01-20] MEDS ORDERED: Phytonadione 10 MG in Sodium Chloride 0.9% 50 ML IVPB SCH (11:00)
--- NOTE | 2020-01-20 11:48 | PRG ---
DATE OF SERVICE: 01/20/2020 SUBJECTIVE: The patient is doing a little better. She is not moaning as much. She is still noncommunicative. OBJECTIVE: VITAL SIGNS: On exam, temperature 97.2, pulse 112, and blood pressure 152/107. Total intake 3650, output 1377. HEENT: Unremarkable. NECK: No JVD. CHEST: Clear. CARDIAC: S1 and S2. Regular. ABDOMEN: Soft. EXTREMITIES: No edema. LABORATORY DATA: Sodium 145, potassium 3.5, chloride 91, CO2 of 24, BUN 70, creatinine 5.1, and glucose 234. Lactate 9.8. White blood cell count 14.3, hematocrit 30, and platelet count 226. INR 7.5. ASSESSMENT: 1. Sepsis versus dehydration. 2. Metabolic acidosis - improved with bicarbonate infusion. 3. Lactic acidosis. 4. Coagulopathy. PLAN: 1. She needs to be given more vitamin K. 2. Bicarbonate infusion is being written for by the Nephrology Service. 3. Continue empiric antibiotics. Since there has been no growth on cultures, I would stop the vancomycin given her abnormal renal function. Job ID: [id number]
[2020-01-20] MEDS ORDERED: Calcium Gluconate 9.2 MEQ in Sodium Chloride 0.9% 200 ML IVPB SCH (12:18)
--- NOTE | 2020-01-20 13:49 | CON ---
DATE OF CONSULTATION: 01/20/2020 SERVICE: Nephrology. REASON FOR CONSULTATION: Acute kidney injury and acid-base derangement. REQUESTING PHYSICIAN: Dr. Jose Manuel Betancourt MD CHIEF COMPLAINT: Mental status change and hypoglycemia. HISTORY OF PRESENT ILLNESS: An 89-year-old female with multiple comorbidities including diabetes, hypertension, atrial fibrillation, and others, who was transferred from [place] [facility] for further evaluation and treatment. The patient reportedly presented to the [place] ER due to hypoglycemia with blood glucose in 40s. Evaluation there revealed features of sepsis as well as lactic acidosis and acute renal failure. The patient was treated with IV fluid and antibiotics and subsequently transferred over to [facility] for further evaluation and treatment. Of note, it was reported that few days prior to presentation, the patient was complaining of dysuria, hence sample of urine was taking for evaluation, but the results of which is still unavailable at this point. The patient was noted to have marked lactic acidosis with metabolic acidosis at presentation hence was started on bicarb infusion. She is still altered and was unable to provide any history during my visit. The patient also was noted to have supratherapeutic INR for which she received vitamin K. Of note, she had a CT scan at [place], which was nondiagnostic. Due to persistent metabolic derangement as well as renal failure, nephrology consult was requested. PAST MEDICAL HISTORY: 1. Atrial fibrillation. 2. Diabetes mellitus. 3. Hypothyroidism. 4. Arthritis. 5. Chronic anticoagulation with Coumadin. 6. Dyslipidemia. PAST SURGICAL HISTORY: 1. Bilateral total hip replacement. 2. Bilateral carpal tunnel release. FAMILY HISTORY: Could not be obtained due to the patient's condition. SOCIAL HISTORY: The patient currently lives in a skilled nursing in [place]. Other components could not be ascertained due to the patient's condition. ALLERGIES: NO KNOWN DRUG ALLERGY REPORTED. PRIOR TO HOSPITAL MEDICATIONS: 1. Baclofen 10 mg p.o. daily. 2. Warfarin 7.5 mg Tuesday, , Tuesday and Tuesday and 5 mg on Tuesday, Tuesday, and Tuesday. 3. Metformin 1000 mg p.o. b.i.d. 4. Loratadine 10 mg p.o. daily. 5. Insulin 10 units subcutaneously b.i.d. 6. Lipitor 10 mg p.o. daily at bedtime. 7. Protonix 40 mg p.o. daily. 8. Sennosides 8.6 mg x2 tablets daily p.r.n. for constipation. 9. Levothyroxine 100 mcg p.o. daily. 10. Zoloft 25 mg p.o. daily. 11. Acetaminophen 650 mg q.4 p.r.n. 12. Furosemide 40 mg p.o. daily. CURRENT HOSPITAL MEDICATIONS: 1. Zosyn 2.25 g q.8 hours. 2. Dextrose 5% in half-normal saline plus 150 mEq of sodium bicarbonate at 200 mL/h. 3. Vancomycin as per pharmacy. REVIEW OF SYSTEMS: Could not be performed due to the patient's condition. PHYSICAL EXAMINATION: VITAL SIGNS: Temperature 97.2, pulse 126, respiratory rate 20, SpO2 of 92, blood pressure 152/107. I and O in the last 24 hours showed total intake of 3650 with output of 1377. GENERAL: Confused elderly female, in some distress. Afebrile. Anicteric. HEENT: Normocephalic, atraumatic. Oral mucosa is dry. NECK: Supple with no obvious JVD. CARDIOVASCULAR: Irregular rhythm and rate. Tachycardic with normal heart sounds one and two. RESPIRATORY: Fair air entry bilaterally with some transmitted breath sounds. No obvious rhonchi were appreciated. GI: Obese, soft, with questionable tenderness. Bowel sound is hypoactive. UROGENITAL: Gardner catheter is in place draining some urine. EXTREMITIES: Mild right ankle edema noted. Other extremities are grossly normal with no obvious edema or erythema. Tiny varicosities are noted in both feet. PUBLIC HEALTH DIETITIAN: The patient is awake, but confused. The patient is continuously shouting help, help, help. She does not obey command consistently. She however was able to say "I'm thirsty," which is about the only meaningful statement she made during my visit. DIAGNOSTIC DATA: CBC today showed WBC count of 14.3, hemoglobin of 10.5, MCV of 92.5, platelet of 226. Chemistry showed sodium 145, potassium 3.5, chloride 91, CO2 of 24, BUN 70, creatinine 5.08, glucose 234, calcium 7.0, total bilirubin 0.5. AST 20, ALT 16, alkaline phosphatase 61. Total protein 5.6, albumin 3.0. Lactic acid today is 9.8, which is down from 11.4 yesterday and greater than 13.4 on January 17. Of note, the patient had creatinine of 0.87 on October 09, 2019. Coagulation panel today showed PT 62.7, INR of 7.5. Arterial blood gas on January 17 showed pH of 7.08, pCO2 of 20.8, pO2 of 109.5 with ionized calcium of 0.99. CT scan of the abdomen and pelvis without IV contrast performed on January 17 showed scattered colonic diverticulosis without definite evidence of acute diverticulitis. The stomach is moderately distended with fluid and gas. L4-L5 ankylosis as well as severe multilevel spondylosis of the thoracolumbar spine were noted as well. Clear lung bases as well as calcified granuloma within the right hepatic lobe which is said to be stable as well as a normal kidneys and ureters with no hydronephrosis and moderate vascular calcification involving the abdomen also were noted. Urinalysis performed on January 17 showed yellow hazy urine with pH of 5.00, specific gravity of 1.015, negative protein, glucose, nitrite, bilirubin, and leukocyte esterase. Ketone was positive as well as blood. Microscopy showed 0 to 3 rbc and 0 to 3 wbc with 3+ bacteria. ASSESSMENT: 1. Acute renal failure. Creatinine is up to 5.08 from baseline of 0.8. Etiology is unclear, but seems to be related to hemodynamic factors related to sepsis and volume depletion. Rhabdomyolysis is a concern. The patient had complained of dysuria, but CT scan of the abdomen showed no obstructive uropathy. 2. Severe and persistent lactic acidosis: Etiology is unclear. Most likely related to use of metformin, acute kidney injury, and sepsis. 3. Metabolic acidosis. 4. Acute encephalopathy: Multifactorial from hypoglycemia, sepsis, and electrolyte derangement as well as acid-base derangement. 5. Possible complicated urinary tract infection. 6. Possible mesenteric ischemia. 7. Hypocalcemia. 8. Diabetes mellitus with hyperglycemia. Ketoacidosis is a concern. 9. Hypertension: Control is suboptimal. 10. Paroxysmal atrial fibrillation with poorly controlled rate. 11. Supratherapeutic INR with no overt bleeding. PLAN: 1. We will discontinue hypertonic solution containing D5 half-normal saline and 150 mEq of sodium bicarbonate and start isotonic solution of half-normal saline plus sodium bicarbonate. 2. We will also get repeat arterial blood gas to ascertain the status of acid- base derangement and also to get ionized calcium. We will replete serum calcium if arterial blood gas showed persistent hypocalcemia which is anticipated due to bicarb infusion. 3. We will also get urine electrolytes as well as CK level looking for the etiology of acute kidney injury. 4. Broad-spectrum antibiotic therapy to continue. 5. We will defer management of supratherapeutic INR to the primary attending. 6. Better glycemic control is recommended to rule out possibility of ketosis. 7. Avoid nephrotoxic agents. 8. Recheck BMP in 4 to 6 hours. 9. We will also get CRP, procalcitonin, and LDH. 10. Further treatment to follow depending on hospital course. Many thanks for involving us in the care of this patient. We will follow along with you. Job ID: [id number] [facility] HOSPITALBogdan
[2020-01-20 14:46] LABS: Vancomycin, Random 18.9 ug/mL (See Comment)
[2020-01-20 14:53] LABS: Anion Gap 28 mmol/L (10-20); BUN (Urea Nitrogen) 70 mg/dL (9.8-20.1); Calc. Creatinine Clearance 12 mL/min (70-130); Carbon Dioxide 31 mmol/L (23-31); Chloride 92 mmol/L (98-107); Estimated GFR-MDRD 8; Glucose 130 mg/dL (83-110); Potassium 3.1 mmol/L (3.5-5.1); Sodium 148 mmol/L (136-145)
--- NOTE | 2020-01-20 15:37 | PDOC.HOSPP ---
- Subjective Encounter Date: 01/20/20 Encounter Time: 12:00 Subjective: Pt seen for followup re: sepsis. Pt unable to communicate,could not complete ROS. - Objective Vital Signs & Weight: Vital Signs (12 hours) Temp Pulse Ox 01/20/20 15:30 98.2 F 01/20/20 11:27 98.3 F 01/20/20 08:00 99 01/20/20 07:16 97.2 F L Weight Weight 227 lb 6.4 oz Most Recent Monitor Data Heart Rate from ECG 104 NIBP 144/86 NIBP BP-Mean 105 Respiration from ECG 19 SpO2 100 I&O: 01/19/20 01/20/20 01/21/20 06:59 06:59 06:59 Intake Total 1750 3650 Output Total 555 1377 Balance 1195 2273 Result Diagrams: 01/20/20 03:17 01/20/20 14:00 Additional Labs: Accuchecks 01/20/20 01/20/20 01/20/20 12:27 08:20 06:32 POC Glucose 175 H 259 H 251 H 01/20/20 01/19/20 00:10 20:40 POC Glucose 203 H 221 H labs and MARs reviewed by me EKG Reviewed by me: Yes (Tele; NSR) Hospitalist ROS - Review of Systems ROS unobtainable: due to mental status - Medication Medications: Active Medications Generic Name Dose Route Start Last Admin Trade Name Freq PRN Reason Stop Dose Admin Piperacillin Sod/Tazobactam 100 mls @ 200 mls/hr 01/18/20 22:00 01/20/20 14:35 Sod 2.25 gm/ Sodium Chloride IVPB 100 mls Q8HR WAQAR Administration Sodium Bicarbonate 75 meq/ 1,075 mls @ 125 mls/hr 01/20/20 09:00 01/20/20 10:23 Sodium Chloride IV 1,075 mls INF WAQAR Administration Insulin Human Lispro 0 units 01/18/20 23:03 01/20/20 12:42 Humalog 300 Units/3 Ml Vial SC 2 unit .MILD SLIDING SCALE PRN Administration Mild Correctional Scale Insulin Human Lispro 0 units 01/18/20 23:03 01/19/20 21:47 Humalog 300 Units/3 Ml Vial SC 2 unit .BEDTIME SLIDING SC PRN Administration Bedtime Correctional Scale - Exam General Appearance: awake alert ENT: moist mucosa Neck: supple Heart: RRR Respiratory: CTAB Gastrointestinal: soft Skin: no rashes Psychiatric - other findings: Unable to assess Hosp A/P - Plan Severe sepsis No clear source of infection. Continue IV Zosyn, discontinue IVvancomycin. Continue IV fluid resuscitation Follow blood cultures. JAIMIE Consult nephrology A. fib with RVR Pt received more vitamin K today. Supratherapeutic INR Administer vitamin K, recheck PT/INR. Diabetes mellitus Continue Accu-Cheks and insulin sliding scale. Hypoglycemia Resolved.
[2020-01-20 16:46] LABS: Bilirubin Negative (Negative); Blood, Urine 2+ (Negative); Clarity Clear (Clear); Glucose, Urine (Dipstick) 100 mg/dL (Negative); Ketone, Urine Trace mg/dL (Negative); Leukocyte 75 Leu/uL (Negative); Nitrite Negative (Negative); Protein, Urine (Dipstick) 30 mg/dL (Neg-Trace); Renal Epithelial 0-3 HPF (None Seen); Specific Gravity, Urine 1.012 (1.002-1.036); Squamous Epithelial 0-3 HPF (0-3); Urobilinogen Normal mg/dL (Less than 2)
[2020-01-20 16:55] LABS: Bacteria/HPF None Seen HPF (None Seen)
[2020-01-20 16:57] LABS: Urine Culture Reflex Yes Yes
[2020-01-20 17:00] LABS: Creatinine, Urine 34.48 mg/dL (47-110)
[2020-01-20] MEDS ORDERED: Potassium Chloride 40 MEQ in Sodium Chloride 0.9% 250 ML 250 ML IVPB SCH (18:00)
[2020-01-20] MEDS: Dextrose 5% in Water 1,000 ML IV SCH (18:23)
[2020-01-20] MEDS ORDERED: Magnesium Sulfate 4 GM in Sodium Chloride 0.9% 250 ML 250 ML IVPB SCH (19:00)
[2020-01-20 21:55] LABS: Anion Gap 30 mmol/L (10-20); BUN (Urea Nitrogen) 67 mg/dL (9.8-20.1); Calc. Creatinine Clearance 12 mL/min (70-130); Calcium 7.3 mg/dL (7.8-10.44); Carbon Dioxide 27 mmol/L (23-31); Chloride 93 mmol/L (98-107); Estimated GFR-MDRD 8; Glucose 189 mg/dL (83-110); Potassium 3.9 mmol/L (3.5-5.1); Sodium 146 mmol/L (136-145)
[2020-01-21 03:42] LABS: #Lymphocytes 0.8 thou/uL (1.20-3.40); #Monocytes 1.3 thou/uL (0.11-0.59); #Neutrophils 15.4 thou/uL (1.40-6.50); %Basophils 0.1 % (0.0-1.0); %Eosinophils 0.3 % (0.0-10.0); %Lymphocytes 4.8 % (21.0-51.0); %Monocytes 7.4 % (0.0-10.0); %Neutrophils 87.4 % (42.0-75.0); Hemoglobin 11.3 g/dL (12.0-16.0); Mean Corpuscular HGB CONC 33.4 g/dL (32.0-36.0); Mean Corpuscular Hemoglobin 31.4 pg (27.0-31.0); Mean Platelet Volume 10.3 fL (7.4-10.4); Platelet Count 214 thou/uL (130-400); RBC Distribution Width 12.9 % (11.5-14.5); Red Blood Cell (RBC) Count 3.61 mill/uL (4.20-5.40); White Blood Cell (WBC) Count 17.6 thou/uL (4.8-10.8)
[2020-01-21 04:02] LABS: ALT (SGPT) 19 U/L (8-55); AST (SGOT) 22 U/L (5-34); Albumin 3.2 g/dL (3.4-4.8); Alkaline Phosphatase 65 U/L (40-110); Anion Gap 26 mmol/L (10-20); BUN (Urea Nitrogen) 66 mg/dL (9.8-20.1); Bilirubin, Total 0.8 mg/dL (0.2-1.2); Calc. Creatinine Clearance 13 mL/min (70-130); Calcium 7.7 mg/dL (7.8-10.44); Carbon Dioxide 32 mmol/L (23-31); Chloride 92 mmol/L (98-107); Estimated GFR-MDRD 8; Globulin 2.8 g/dL (2.4-3.5); Glucose 267 mg/dL (83-110); Magnesium 1.6 mg/dL (1.6-2.6); Potassium 3.5 mmol/L (3.5-5.1); Sodium 146 mmol/L (136-145)
[2020-01-21] MEDS: Dextrose 5% in Water 1,000 ML IV SCH (05:13)
[2020-01-21] MEDS: Piperacillin/Tazobactam 2.25 GM in Sodium Chloride 0.9% 100 ML IVPB SCH ×3 (05:50→20:59)
[2020-01-21 06:04] LABS: INR-International Normal Ratio 3.3; PTT 56.1 sec (22.9-36.1); Prothrombin Time 33.7 sec (12.0-14.7)
[2020-01-21] MEDS: HumaLOG 300 UNITS/3 ML VIAL SC PRN ×3 (06:15→15:25)
[2020-01-21 06:16] LABS: Lactic Acid 3.9 mmol/L (0.5-2.2)
[2020-01-21] MEDS ORDERED: D5 1/4 NS w/20 mEq KCL 1,000 ML IV SCH (07:45)
--- NOTE | 2020-01-21 10:09 | PDOC.NEPPN ---
- Subjective Encounter Date: 01/21/20 Encounter Time: 10:08 Subjective: Seen in follow up for JAIMIE and metabolic acidosis. More oriented and conversational today. Complains of feeling light/faint but could not elaborate further. No nausea or vomiting. denied abdominal pain. - Objective Vital Signs & Weight: Vital Signs (12 hours) Temp Pulse Ox 01/21/20 08:00 99 01/21/20 07:46 97.3 F L 01/21/20 03:46 98.1 F 01/20/20 23:54 98.1 F Weight Weight 232 lb 8 oz Most Recent Monitor Data Heart Rate from ECG 101 NIBP 118/66 NIBP BP-Mean 83 Respiration from ECG 32 SpO2 99 I&O: 01/20/20 01/21/20 01/22/20 06:59 06:59 06:59 Intake Total 3650 2250 Output Total 1377 900 Balance 2273 1350 Result Diagrams: 01/21/20 03:15 01/21/20 03:15 Additional Labs: Accuchecks 01/21/20 01/21/20 01/21/20 08:44 06:07 00:27 POC Glucose 250 H 261 H 219 H 01/20/20 01/20/20 01/20/20 20:23 16:19 12:27 POC Glucose 182 H 119 H 175 H 01/19/20 01/19/20 17:17 08:32 POC Glucose 166 H 185 H Nephrology ROS - Medication Medications: Active Medications Generic Name Dose Route Start Last Admin Trade Name Freq PRN Reason Stop Dose Admin Piperacillin Sod/Tazobactam 100 mls @ 200 mls/hr 01/18/20 22:00 01/21/20 05:50 Sod 2.25 gm/ Sodium Chloride IVPB 100 mls Q8HR WAQAR Administration Insulin Human Lispro 0 units 01/18/20 23:03 01/21/20 06:15 Humalog 300 Units/3 Ml Vial SC 4 unit .MILD SLIDING SCALE PRN Administration Mild Correctional Scale Insulin Human Lispro 0 units 01/18/20 23:03 01/19/20 21:47 Humalog 300 Units/3 Ml Vial SC 2 unit .BEDTIME SLIDING SC PRN Administration Bedtime Correctional Scale Sodium Chloride 10 ml 01/20/20 21:00 01/20/20 21:21 Flush - Normal Saline 10 Ml Syringe IVF 10 ml Q12HR WAQAR Administration - Exam General Appearance: awake alert General - other findings: obese Eye: anicteric sclera ENT: moist mucosa Neck: supple Respiratory - other findings: fair air entry with some transmitted sound Cardiovascular: irregular Heart - other findings: tachycardic Gastrointestinal: soft, diminished bowl sounds Gastrointestinal - other findings: mild diffuse tenderness on deep palpation Extremities - other findings: edema of the extremities noted especially lower limbs Neurological: CN's grossly intact Neurological - other findings: moves all limbs but weakly Musculoskeletal: generalized weakness PSYCH: normal affect, oriented to person, oriented to place Nephrology Results - Labs Result Diagrams: 01/21/20 03:15 01/21/20 03:15 Lab results: WBC 17.6 thou/uL (4.8-10.8) H 01/21/20 03:15 Hgb 11.3 g/dL (12.0-16.0) L 01/21/20 03:15 Hct 33.9 % (36.0-47.0) L 01/21/20 03:15 MCV 94.0 fL (78.0-98.0) 01/21/20 03:15 Plt Count 214 thou/uL (130-400) 01/21/20 03:15 Neutrophils % 87.4 % (42.0-75.0) H 01/21/20 03:15 ABG pH 7.50 (7.35-7.45) H 01/20/20 09:01 ABG pCO2 38.2 mmHg (35.0-45.0) 01/20/20 09:01 ABG pO2 51.5 mmHg (> 60.0) L* 01/20/20 09:01 Sodium 146 mmol/L (136-145) H 01/21/20 03:15 Potassium 3.5 mmol/L (3.5-5.1) 01/21/20 03:15 Chloride 92 mmol/L (98-107) L 01/21/20 03:15 Carbon Dioxide 32 mmol/L (23-31) H 01/21/20 03:15 BUN 66 mg/dL (9.8-20.1) H 01/21/20 03:15 Creatinine 4.94 mg/dL (0.6-1.1) H 01/21/20 03:15 Glucose 267 mg/dL (83-110) H 01/21/20 03:15 Lactic Acid 3.9 mmol/L (0.5-2.2) H 01/21/20 05:47 Calcium 7.7 mg/dL (7.8-10.44) L 01/21/20 03:15 Total Bilirubin 0.8 mg/dL (0.2-1.2) 01/21/20 03:15 AST 22 U/L (5-34) 01/21/20 03:15 ALT 19 U/L (8-55) 01/21/20 03:15 Alkaline Phosphatase 65 U/L (40-110) 01/21/20 03:15 Ammonia 46 umol/L (18-72) 01/18/20 19:04 Creatine Kinase 541 U/L (29-168) H 01/20/20 11:38 CK-MB (CK-2) 22.3 ng/mL (0-6.6) H* 01/18/20 17:52 Troponin I 0.046 ng/mL (< 0.028) H 01/18/20 17:52 C-Reactive Protein 7.55 mg/dL (= or < 0.5) H 01/20/20 03:17 Serum Total Protein 6.0 g/dL (6.0-8.3) 01/21/20 03:15 Albumin 3.2 g/dL (3.4-4.8) L 01/21/20 03:15 Urine Ketones Trace mg/dL (Negative) A 01/20/20 15:35 Urine Blood 2+ (Negative) A 01/20/20 15:35 Urine Nitrite Negative (Negative) 01/20/20 15:35 Ur Leukocyte Esterase 75 Kulwinder/uL (Negative) A 01/20/20 15:35 Urine RBC 11-20 HPF (0-3) A 01/20/20 15:35 Urine WBC 4-6 HPF (0-3) A 01/20/20 15:35 Ur Squamous Epith Cells 0-3 HPF (0-3) 01/20/20 15:35 Urine Bacteria None Seen HPF (None Seen) 01/20/20 15:35 Sodium 146 mmol/L (136-145) H 01/21/20 03:15 Potassium 3.5 mmol/L (3.5-5.1) 01/21/20 03:15 Chloride 92 mmol/L (98-107) L 01/21/20 03:15 Carbon Dioxide 32 mmol/L (23-31) H 01/21/20 03:15 Anion Gap 26 mmol/L (10-20) H 01/21/20 03:15 BUN 66 mg/dL (9.8-20.1) H 01/21/20 03:15 Creatinine 4.94 mg/dL (0.6-1.1) H 01/21/20 03:15 Glucose 267 mg/dL (83-110) H 01/21/20 03:15 Calcium 7.7 mg/dL (7.8-10.44) L 01/21/20 03:15 Magnesium 1.6 mg/dL (1.6-2.6) 01/21/20 03:15 Albumin 3.2 g/dL (3.4-4.8) L 01/21/20 03:15 Nephrology AP PN - Plan ASSESSMENT Acute renal failure. Most likely related to hemodynamic factors related to sepsis and volume depletion. Creat is beginning to trend down Severe and persistent lactic acidosis: Etiology is unclear. Most likely related to use of metformin, acute kidney injury, and sepsis. High anion gap Metabolic acidosis. Hypernatremia Edema /fluid overload Hypokalemia Hypomagnesemia Acute encephalopathy: Multifactorial from hypoglycemia, sepsis, and electrolyte derangement as well as acid-base derangement. Improved Presumed complicated urinary tract infection. Possible mesenteric ischemia. Hypocalcemia. Diabetes mellitus with hyperglycemia. Hypertension: Control is suboptimal. Paroxysmal atrial fibrillation with poorly controlled rate. Supratherapeutic INR with no overt bleeding PLAN Continue Hypotonic solution. Decrease rate due to edema Replete serum potassium and magnesium. Monitor electrolytes and replete as indicated. Restart oral intake. liberal free water provision via mouth now patient is cleared for oral intake. Monitor renal function Diuretic therapy contemplated. Avoid nephrotoxic agents
--- NOTE | 2020-01-21 10:11 | PRG ---
DATE OF SERVICE: 01/21/2020 SUBJECTIVE: The patient is now talkative. She is still confused, but is much more interactive than she has been. OBJECTIVE: VITAL SIGNS: Temperature 97.3, pulse 67, and blood pressure 118/66. HEENT: Unremarkable. NECK: No adenopathy or JVD. CHEST: Clear. CARDIAC: S1 and S2. Regular. ABDOMEN: Soft. EXTREMITIES: No edema. LABORATORY DATA: White blood cell count 17.6, hematocrit 33.9, and platelet count 214. INR is 3.3. Sodium 146, potassium 3.5, chloride 92, CO2 of 32, BUN 66, creatinine 4.9, glucose 267, and calcium 7.7. ASSESSMENT: 1. Encephalopathy, improved. 2. Probable dehydration as opposed to sepsis. 3. Metabolic acidosis. 4. Coagulopathy. PLAN: Seems to be getting better with current care. She is continuing antibiotics. The bicarb drip has been stopped by Nephrology Service. No further recommendations at this time. I think she is stable for transfer to Medical. Please call if further assistance needed. Job ID: [id number]
--- NOTE | 2020-01-21 15:34 | PDOC.HOSPP ---
- Subjective Encounter Date: 01/21/20 Encounter Time: 11:00 Subjective: Patient seen for follow-up regarding sepsis. More alert today, able to state her name but not able to hold conversation. Could not review of systems. - Objective Vital Signs & Weight: Vital Signs (12 hours) Temp Pulse Ox 01/21/20 11:00 97.2 F L 01/21/20 08:00 99 01/21/20 07:46 97.3 F L 01/21/20 03:46 98.1 F Weight Admit Weight 219 lb 2.232 oz Weight 232 lb 8 oz Most Recent Monitor Data Heart Rate from ECG 105 NIBP 105/84 NIBP BP-Mean 91 Respiration from ECG 16 SpO2 100 I&O: 01/20/20 01/21/20 01/22/20 06:59 06:59 06:59 Intake Total 3650 2250 Output Total 1377 900 Balance 2273 1350 Result Diagrams: 01/21/20 03:15 01/21/20 03:15 Additional Labs: Accuchecks 01/21/20 01/21/20 01/21/20 15:29 12:32 08:44 POC Glucose 165 H 215 H 250 H 01/21/20 01/21/20 01/20/20 06:07 00:27 20:23 POC Glucose 261 H 219 H 182 H 01/20/20 01/19/20 01/19/20 16:19 17:17 08:32 POC Glucose 119 H 166 H 185 H I reviewed patient's labs and MAR EKG Reviewed by me: Yes (Telemetry: Atrial fibrillation) Hospitalist ROS - Review of Systems ROS unobtainable: due to mental status - Medication Medications: Active Medications Generic Name Dose Route Start Last Admin Trade Name Freq PRN Reason Stop Dose Admin Piperacillin Sod/Tazobactam 100 mls @ 200 mls/hr 01/18/20 22:00 01/21/20 05:50 Sod 2.25 gm/ Sodium Chloride IVPB 100 mls Q8HR WAQAR Administration Potassium Chloride 20 meq/ 1,010 mls @ 50 mls/hr 01/21/20 10:07 01/21/20 10:29 Dextrose/Sodium Chloride IV 1,010 mls .[id number] WAQAR Administration Insulin Human Lispro 0 units 01/18/20 23:03 01/21/20 10:31 Humalog 300 Units/3 Ml Vial SC 3 unit .MILD SLIDING SCALE PRN Administration Mild Correctional Scale Insulin Human Lispro 0 units 01/18/20 23:03 01/19/20 21:47 Humalog 300 Units/3 Ml Vial SC 2 unit .BEDTIME SLIDING SC PRN Administration Bedtime Correctional Scale Sodium Chloride 10 ml 01/20/20 21:00 01/21/20 10:29 Flush - Normal Saline 10 Ml Syringe IVF 10 ml Q12HR WAQAR Administration - Exam General Appearance: awake alert Eye: anicteric sclera ENT: moist mucosa Heart: irregular Respiratory: CTAB Gastrointestinal: soft Skin: no rashes Psychiatric - other findings: Unable to assess Hosp A/P - Plan Severe sepsis Preliminary blood and urine cultures negative. Continue IV Zosyn. JAIMIE Appreciate nephrology service input, creatinine slowly improving. A. fib with RVR INR has improved. Supratherapeutic INR INR has improved. Diabetes mellitus Continue Accu-Cheks and insulin sliding scale. Hypoglycemia Resolved.
[2020-01-22 03:56] LABS: #Lymphocytes 1.2 thou/uL (1.20-3.40); #Monocytes 1.2 thou/uL (0.11-0.59); #Neutrophils 14.4 thou/uL (1.40-6.50); %Basophils 0.1 % (0.0-1.0); %Eosinophils 0.2 % (0.0-10.0); %Lymphocytes 6.9 % (21.0-51.0); %Neutrophils 85.8 % (42.0-75.0); Hemoglobin 11.2 g/dL (12.0-16.0); Mean Corpuscular HGB CONC 32.5 g/dL (32.0-36.0); Mean Corpuscular Hemoglobin 30.8 pg (27.0-31.0); Mean Corpuscular Volume 94.9 fL (78.0-98.0); Mean Platelet Volume 9.3 fL (7.4-10.4); Platelet Count 180 thou/uL (130-400); RBC Distribution Width 12.5 % (11.5-14.5); Red Blood Cell (RBC) Count 3.63 mill/uL (4.20-5.40); White Blood Cell (WBC) Count 16.8 thou/uL (4.8-10.8)
[2020-01-22 04:18] LABS: ALT (SGPT) 18 U/L (8-55); AST (SGOT) 20 U/L (5-34); Albumin 3.1 g/dL (3.4-4.8); Alkaline Phosphatase 66 U/L (40-110); Anion Gap 21 mmol/L (10-20); BUN (Urea Nitrogen) 62 mg/dL (9.8-20.1); Calc. Creatinine Clearance 14 mL/min (70-130); Calcium 8.7 mg/dL (7.8-10.44); Carbon Dioxide 32 mmol/L (23-31); Chloride 92 mmol/L (98-107); Estimated GFR-MDRD 9; Globulin 2.8 g/dL (2.4-3.5); Glucose 193 mg/dL (83-110); Potassium 3.1 mmol/L (3.5-5.1); Protein, Total 5.9 g/dL (6.0-8.3); Sodium 142 mmol/L (136-145)
[2020-01-22] MEDS: Piperacillin/Tazobactam 2.25 GM in Sodium Chloride 0.9% 100 ML IVPB SCH ×3 (05:03→22:01)
--- NOTE | 2020-01-22 14:48 | PDOC.HOSPP ---
- Subjective Encounter Date: 01/22/20 Encounter Time: 12:30 Subjective: Patient seen for follow-up regarding sepsis. More alert today. - Objective Vital Signs & Weight: Vital Signs (12 hours) Temp Pulse Ox 01/22/20 11:31 97.3 F L 01/22/20 08:00 96 01/22/20 07:26 98.0 F 01/22/20 03:00 96.6 F L Weight Admit Weight 219 lb 2.232 oz Weight 236 lb 6.4 oz Most Recent Monitor Data Heart Rate from ECG 105 NIBP 151/115 NIBP BP-Mean 127 Respiration from ECG 23 SpO2 97 I&O: 01/21/20 01/22/20 01/23/20 06:59 06:59 06:59 Intake Total 2250 1920 Output Total 900 1625 Balance 1350 295 Result Diagrams: 01/22/20 03:18 01/22/20 03:18 Additional Labs: Accuchecks 01/22/20 01/22/20 01/22/20 13:06 08:35 04:07 POC Glucose 212 H 203 H 177 H 01/22/20 01/21/20 01/21/20 00:11 19:55 15:29 POC Glucose 170 H 169 H 165 H I reviewed patient's labs and MAR EKG Reviewed by me: Yes (Telemetry: Eevlina dang) Hospitalist ROS - Review of Systems ROS unobtainable: due to mental status - Medication Medications: Active Medications Generic Name Dose Route Start Last Admin Trade Name Freq PRN Reason Stop Dose Admin Piperacillin Sod/Tazobactam 100 mls @ 200 mls/hr 01/18/20 22:00 01/22/20 13:48 Sod 2.25 gm/ Sodium Chloride IVPB 100 mls Q8HR WAQAR Administration Potassium Chloride 20 meq/ 1,010 mls @ 50 mls/hr 01/21/20 10:07 01/22/20 05:09 Dextrose/Sodium Chloride IV 1,010 mls .[id number] WAQAR Administration Insulin Human Lispro 0 units 01/18/20 23:03 01/21/20 15:25 Humalog 300 Units/3 Ml Vial SC 2 unit .MILD SLIDING SCALE PRN Administration Mild Correctional Scale Insulin Human Lispro 0 units 01/18/20 23:03 01/19/20 21:47 Humalog 300 Units/3 Ml Vial SC 2 unit .BEDTIME SLIDING SC PRN Administration Bedtime Correctional Scale Sodium Chloride 10 ml 01/20/20 21:00 01/22/20 07:44 Flush - Normal Saline 10 Ml Syringe IVF Not Given Q12HR WAQAR - Exam General Appearance: awake alert Eye: scleral icterus Heart: irregular Respiratory: CTAB Gastrointestinal: soft Skin: no rashes Psychiatric: normal affect Hosp A/P - Plan Severe sepsis Preliminary blood and urine cultures negative. Continue IV Zosyn. JAIMIE Creatinine improved to 4.6 today. A. fib with RVR INR has improved. Supratherapeutic INR INR has improved. Diabetes mellitus Continue Accu-Cheks and insulin sliding scale. Hypoglycemia Resolved.
[2020-01-22 15:27] LABS: INR-International Normal Ratio 3.8; Prothrombin Time 37.3 sec (12.0-14.7)
--- NOTE | 2020-01-22 20:22 | PRG ---
DATE OF SERVICE: SUBJECTIVE: The patient was seen and examined today. The only complaint that she had was . Noted with the following vital signs. OBJECTIVE: VITAL SIGNS: Afebrile, temperature 97.7, pulse 82, respiratory rate of 24, O2 saturation 94% on 2 L, and blood pressure 149/92. HEENT: Reveals possible dry oral mucosa. CARDIOVASCULAR: First and second heart sounds were heard. RESPIRATORY: Clear anteriorly. DIGESTIVE: Revealed an obese abdomen. EXTREMITIES: No peripheral edema. LABORATORY INVESTIGATION: Showed potassium of 3.1, BUN of 62, and creatinine of 4.68. [place] [address] with hemoglobin of 11.2. IMPRESSION: 1. Advanced chronic kidney disease stage 5. 2. Severe metabolic acidosis, which has flipped over into alkalosis. 3. Advanced age. 4. Mild hypokalemia. PLAN: 1. Replete the potassium. 2. Continue other renal supportive measures. 3. Further management to be dependent on the clinical course. The patient be a great candidate for renal replacement therapy. We will defer to the primary nailing machine feeder. Job ID: [id number]
[2020-01-22] MEDS: D5W-AA 4.25% with LYTES 1,000 ML IV SCH (23:03)
[2020-01-23 04:36] LABS: #Eosinphils 0.2 thou/uL (0.0-0.7); #Lymphocytes 1.1 thou/uL (1.20-3.40); #Monocytes 1.3 thou/uL (0.11-0.59); #Neutrophils 12.2 thou/uL (1.40-6.50); %Basophils 0.1 % (0.0-1.0); %Eosinophils 1.4 % (0.0-10.0); %Lymphocytes 7.5 % (21.0-51.0); %Monocytes 8.4 % (0.0-10.0); %Neutrophils 82.7 % (42.0-75.0); Hemoglobin 11.6 g/dL (12.0-16.0); Mean Corpuscular Hemoglobin 31.7 pg (27.0-31.0); Mean Corpuscular Volume 96.1 fL (78.0-98.0); Mean Platelet Volume 9.3 fL (7.4-10.4); Platelet Count 172 thou/uL (130-400); RBC Distribution Width 12.4 % (11.5-14.5); Red Blood Cell (RBC) Count 3.65 mill/uL (4.20-5.40); White Blood Cell (WBC) Count 14.8 thou/uL (4.8-10.8)
[2020-01-23 04:43] LABS: INR-International Normal Ratio 3.4; Prothrombin Time 34.5 sec (12.0-14.7)
[2020-01-23 05:41] LABS: ALT (SGPT) 15 U/L (8-55); AST (SGOT) 15 U/L (5-34); Alkaline Phosphatase 68 U/L (40-110); Anion Gap 19 mmol/L (10-20); BUN (Urea Nitrogen) 65 mg/dL (9.8-20.1); Bilirubin, Total 0.9 mg/dL (0.2-1.2); Calc. Creatinine Clearance 14 mL/min (70-130); Calcium 9.3 mg/dL (7.8-10.44); Carbon Dioxide 32 mmol/L (23-31); Chloride 95 mmol/L (98-107); Estimated GFR-MDRD 9; Globulin 3.1 g/dL (2.4-3.5); Glucose 232 mg/dL (83-110); Potassium 3.1 mmol/L (3.5-5.1); Protein, Total 6.1 g/dL (6.0-8.3); Sodium 143 mmol/L (136-145)
[2020-01-23] MEDS: Piperacillin/Tazobactam 2.25 GM in Sodium Chloride 0.9% 100 ML IVPB SCH ×3 (05:47→21:09)
[2020-01-23] MEDS: HumaLOG 300 UNITS/3 ML VIAL SC PRN ×3 (06:41→17:38)
[2020-01-23] MEDS ORDERED: Furosemide 40 MG/4 ML VIAL SLOW IVP SCH ×2 (10:00→16:45)
[2020-01-23] MEDS ORDERED: Labetalol HCl 100 MG/20 ML VIAL SLOW IVP SCH ×2 (10:15→17:00)
[2020-01-23] MEDS: Potassium Chloride 20 MEQ TAB PO SCH ×2 (10:16→21:11)
--- NOTE | 2020-01-23 10:25 | RAD ---
AP CHEST: Date: 01/23/2020 HISTORY: Shortness of breath. COMPARISON: 01/18/2020. FINDINGS/IMPRESSION: Cardiomegaly and mild vascular engorgement. Bilateral effusions and bibasilar atelectasis. I cannot e xclude coexisting infiltrate in the right lower lobe. POS: AGW
[2020-01-23] MEDS: D5W-AA 4.25% with LYTES 1,000 ML IV SCH (13:12)
--- NOTE | 2020-01-23 16:25 | PDOC.HOSPP ---
- Subjective Encounter Date: 01/23/20 Encounter Time: 07:30 Subjective: Seen for follow-up regarding acute kidney injury. She is awake, more alert today. Is able to tell me her name and date of . - Objective Vital Signs & Weight: Vital Signs (12 hours) Temp Pulse Pulse Pulse Resp BP BP 01/23/20 15:37 97.5 F L 97 20 01/23/20 15:10 97 99 171/101 H 177/106 H 01/23/20 11:48 97.7 F 99 20 01/23/20 10:58 24 H 01/23/20 09:30 01/23/20 08:43 01/23/20 07:52 97.4 F L 100 20 BP Pulse Ox 01/23/20 15:37 171/101 H 93 L 01/23/20 15:10 01/23/20 11:48 99 01/23/20 10:58 149/86 H 01/23/20 09:30 170/108 H 01/23/20 08:43 93 L 01/23/20 07:52 180/108 H 93 L Weight Admit Weight 219 lb 2.232 oz Weight 236 lb 6.4 oz Most Recent Monitor Data Heart Rate from ECG 100 NIBP 161/119 NIBP BP-Mean 133 Respiration from ECG 22 SpO2 97 I&O: 01/22/20 01/23/20 01/24/20 06:59 06:59 06:59 Intake Total 1920 Output Total 1625 1475 Balance 295 -1475 Result Diagrams: 01/23/20 04:19 01/23/20 04:19 Additional Labs: Accuchecks 01/23/20 01/23/20 01/22/20 10:55 05:49 22:14 POC Glucose 215 H 227 H 198 H I reviewed patient's labs and MAR EKG Reviewed by me: Yes (Telemetry: A. fib) Hospitalist ROS - Review of Systems Cardiovascular: denies: chest pain, palpitations, orthopnea, paroxysmal noc. dyspnea, edema, light headedness Gastrointestinal: denies: nausea, vomiting, abdominal pain, diarrhea, constipation, melena, hematochezia - Medication Medications: Active Medications Generic Name Dose Route Start Last Admin Trade Name Freq PRN Reason Stop Dose Admin Piperacillin Sod/Tazobactam 100 mls @ 200 mls/hr 01/18/20 22:00 10/07/20 14:40 Sod 2.25 gm/ Sodium Chloride IVPB 100 mls Q8HR WAQAR Administration Amino Acids/Electrolytes/Dextrose 1,000 mls @ 70 mls/hr 01/22/20 20:00 01/23/20 13:12 Clinimix E 4.25/5 IV 1,000 mls INF WAQAR Administration Insulin Human Lispro 0 units 01/18/20 23:03 01/23/20 11:57 Humalog 300 Units/3 Ml Vial SC 3 unit .MILD SLIDING SCALE PRN Administration Mild Correctional Scale Insulin Human Lispro 0 units 01/18/20 23:03 01/19/20 21:47 Humalog 300 Units/3 Ml Vial SC 2 unit .BEDTIME SLIDING SC PRN Administration Bedtime Correctional Scale Potassium Chloride 40 meq 01/23/20 10:00 01/23/20 10:16 Potassium Chloride 20 Meq Tab PO 01/23/20 22:01 40 meq 1000,2200 WAQAR Administration Sodium Chloride 10 ml 01/20/20 21:00 01/23/20 08:45 Flush - Normal Saline 10 Ml Syringe IVF Not Given Q12HR WAQAR - Exam General - other findings: Obese Eye: anicteric sclera ENT: moist mucosa Neck: supple Heart: irregular Respiratory: CTAB Gastrointestinal: soft, non-tender Extremities: 2+ LE edema Psychiatric: normal affect, normal behavior, oriented to person Hosp A/P - Plan JAIMIE Creatinine improved to 4.59 today. A. fib with RVR Rate controlled. Supratherapeutic INR INR 3.4 today. Diabetes mellitus Continue Accu-Cheks and insulin sliding scale. Hypoglycemia Resolved. Severe sepsis Resolved PT eval/treatment. Patient is currently n.p.o., speech therapy following. If patient continues to be n.p.o., will consider NG tube feeds.
--- NOTE | 2020-01-23 16:51 | PRG ---
DATE OF SERVICE: 01/23/2020 SUBJECTIVE: The patient is seen and examined, very short of breath, unable to complete full sentences. Noted with the following vital signs. OBJECTIVE: VITAL SIGNS: Afebrile, temperature 97.7, pulse of 100, O2 saturation 93% on 2 L, with blood pressure of 180/108. HEENT: Unremarkable. CARDIOVASCULAR SYSTEM: First and second heart sounds were heard. RESPIRATORY SYSTEM: Shows some few rales. DIGESTIVE SYSTEM: Revealed an obese abdomen. EXTREMITIES: Showed no peripheral edema. SKIN: No new gross rash. LYMPHATICS: No peripheral lymphadenopathy. LABORATORY INVESTIGATIONS: Significant for potassium of 3.1, bicarb of 32, creatinine 4.59. IMPRESSION: 1. Advanced chronic kidney disease, stage 5 versus acute on chronic kidney disease. 2. Morbid obesity. 3. Hypervolemia with respiratory distress. 4. Hypokalemia. 5. Sepsis. PLAN: 1. Discontinue IV fluid. 2. Initiate diuresis as the patient is obviously hypervolemic. 3. Chest x-ray to further confirm the pulmonary congestion. 4. Replete potassium. We will give this patient additional 80 mEq of potassium today. 5. Further management to be dependent on the clinical course. Job ID: [id number]
[2020-01-24] MEDS: Furosemide 40 MG/4 ML VIAL SLOW IVP SCH ×2 (06:18→11:35)
[2020-01-24] MEDS: Piperacillin/Tazobactam 2.25 GM in Sodium Chloride 0.9% 100 ML IVPB SCH ×3 (06:18→21:03)
[2020-01-24 06:31] LABS: #Basophils 0.1 thou/uL (0.0-0.2); #Eosinphils 0.7 thou/uL (0.0-0.7); #Lymphocytes 1.4 thou/uL (1.20-3.40); #Neutrophils 15.8 thou/uL (1.40-6.50); %Basophils 0.4 % (0.0-1.0); %Eosinophils 3.8 % (0.0-10.0); %Lymphocytes 6.9 % (21.0-51.0); %Monocytes 9.8 % (0.0-10.0); %Neutrophils 79.2 % (42.0-75.0); Hemoglobin 11.7 g/dL (12.0-16.0); Mean Corpuscular HGB CONC 31.9 g/dL (32.0-36.0); Mean Corpuscular Hemoglobin 31.5 pg (27.0-31.0); Mean Corpuscular Volume 98.7 fL (78.0-98.0); Mean Platelet Volume 9.5 fL (7.4-10.4); Platelet Count 158 thou/uL (130-400); RBC Distribution Width 12.4 % (11.5-14.5); Red Blood Cell (RBC) Count 3.72 mill/uL (4.20-5.40); White Blood Cell (WBC) Count 19.9 thou/uL (4.8-10.8)
[2020-01-24 06:31] LABS: ALT (SGPT) 14 U/L (8-55); AST (SGOT) 16 U/L (5-34); Albumin 3.2 g/dL (3.4-4.8); Alkaline Phosphatase 66 U/L (40-110); Anion Gap 21 mmol/L (10-20); BUN (Urea Nitrogen) 77 mg/dL (9.8-20.1); Bilirubin, Total 0.7 mg/dL (0.2-1.2); Calc. Creatinine Clearance 14 mL/min (70-130); Calcium 9.6 mg/dL (7.8-10.44); Carbon Dioxide 30 mmol/L (23-31); Chloride 97 mmol/L (98-107); Estimated GFR-MDRD 9; Globulin 3.1 g/dL (2.4-3.5); Glucose 190 mg/dL (83-110); Potassium 3.8 mmol/L (3.5-5.1); Protein, Total 6.3 g/dL (6.0-8.3); Sodium 144 mmol/L (136-145)
[2020-01-24 08:02] LABS: INR-International Normal Ratio 2.9; Prothrombin Time 30.4 sec (12.0-14.7)
[2020-01-24] MEDS: HumaLOG 300 UNITS/3 ML VIAL SC PRN ×2 (11:19→18:23)
--- NOTE | 2020-01-24 15:26 | PDOC.HOSPP ---
- Subjective Encounter Date: 01/24/20 Encounter Time: 07:00 Subjective: Patient seen for follow-up for acute renal failure. She denies any chest pain or shortness of breath. - Objective Vital Signs & Weight: Vital Signs (12 hours) Temp Pulse Resp BP Pulse Ox 01/24/20 11:33 97.5 F L 106 H 19 155/84 H 95 01/24/20 08:00 94 L 01/24/20 07:48 97.1 F L 91 25 H 168/81 H 94 L 01/24/20 04:10 97.4 F L 89 159/77 H 97 Weight Admit Weight 219 lb 2.232 oz Weight 227 lb 4.8 oz Most Recent Monitor Data Heart Rate from ECG 100 NIBP 161/119 NIBP BP-Mean 133 Respiration from ECG 22 SpO2 97 I&O: 01/23/20 01/24/20 01/25/20 06:59 06:59 06:59 Intake Total 870 Output Total 1475 Balance -605 Result Diagrams: 01/24/20 04:00 01/24/20 04:05 Additional Labs: Accuchecks 01/24/20 01/24/20 01/23/20 10:23 05:36 20:47 POC Glucose 197 H 184 H 180 H 01/23/20 16:54 POC Glucose 179 H I reviewed patient's labs and MAR EKG Reviewed by me: Yes (Normal sinus rhythm on telemetry.) Hospitalist ROS - Review of Systems Constitutional: denies: fever, chills, sweats, weakness, malaise Cardiovascular: denies: chest pain, palpitations, orthopnea, paroxysmal noc. dyspnea, edema, light headedness - Medication Medications: Active Medications Generic Name Dose Route Start Last Admin Trade Name Freq PRN Reason Stop Dose Admin Furosemide 40 mg 01/24/20 06:00 01/24/20 11:35 Furosemide 40 Mg/4 Ml Vial SLOW IVP 40 mg 0600,1400 WAQAR Administration Piperacillin Sod/Tazobactam 100 mls @ 200 mls/hr 01/18/20 22:00 01/24/20 06:18 Sod 2.25 gm/ Sodium Chloride IVPB Not Given Q8HR WAQAR Amino Acids/Electrolytes/Dextrose 1,000 mls @ 70 mls/hr 01/22/20 20:00 10/07/20 13:12 Clinimix E 4.25/5 IV 1,000 mls INF WAQAR Administration Insulin Human Lispro 0 units 01/18/20 23:03 01/24/20 11:19 Humalog 300 Units/3 Ml Vial SC 2 unit .MILD SLIDING SCALE PRN Administration Mild Correctional Scale Insulin Human Lispro 0 units 01/18/20 23:03 01/19/20 21:47 Humalog 300 Units/3 Ml Vial SC 2 unit .BEDTIME SLIDING SC PRN Administration Bedtime Correctional Scale Sodium Chloride 10 ml 01/20/20 21:00 01/24/20 11:18 Flush - Normal Saline 10 Ml Syringe IVF 10 ml Q12HR WAQAR Administration - Exam General - other findings: Obese ENT: moist mucosa Heart: RRR Respiratory: CTAB Gastrointestinal: soft, non-tender Extremities: 2+ LE edema Skin: no rashes Psychiatric: normal affect, normal behavior Hosp A/P - Plan JAIMIE Creatinine 4.61 today A. fib with RVR Rate controlled. Supratherapeutic INR INR 2.9 today. Diabetes mellitus Continue Accu-Cheks and insulin sliding scale. Hypoglycemia Resolved. Severe sepsis Resolved PT eval/treatment. Swallow eval pending
--- NOTE | 2020-01-24 17:55 | PRG ---
DATE OF SERVICE: 01/24/2020 SUBJECTIVE: The patient is seen and examined, seems to be a little bit less of breath. Noted with the following vital signs. OBJECTIVE: VITAL SIGNS: Afebrile, temperature 97.5, pulse 91, respiratory rate of 19, blood pressure 155/84, O2 saturation are 95%. HEENT: Unremarkable. CARDIOVASCULAR SYSTEM: First and second heart sounds were heard. RESPIRATORY SYSTEM: Clear to auscultation. DIGESTIVE SYSTEM: Revealed obese abdomen. EXTREMITIES: Showed improving peripheral edema. SKIN: No new gross rash. Input and output are not accurate, but the patient seems to have lost about 9 pounds overnight. LABORATORY INVESTIGATION: Showed potassium of 3.8, BUN of 77 with a creatinine of 4.61. IMPRESSION: 1. Acute on chronic kidney disease, seems to be improving, status post initiation of diuresis. 2. Hypervolemia with pulmonary congestion, on diuretics. 3. Morbid obesity. 4. Failure to thrive. PLAN: 1. We will continue with parenteral diuresis today. 2. Discuss with the nurse in terms of keeping better record of input and output. 3. Renally dose all medications per low GFR. 4. Further management will be dependent on the clinical course. If it becomes evident that the patient is not diuresing adequately with loop diuretics, we will likely augment the diuretics. Job ID: [id number]
[2020-01-24] MEDS: D5W-AA 4.25% with LYTES 1,000 ML IV SCH (21:03)
[2020-01-24] MEDS: Nystatin Powder 15 GM BOT TOP SCH (21:04)
[2020-01-25] MEDS: Furosemide 40 MG/4 ML VIAL SLOW IVP SCH ×2 (04:24→15:19)
[2020-01-25 05:24] LABS: #Basophils 0.1 thou/uL (0.0-0.2); #Eosinphils 0.7 thou/uL (0.0-0.7); #Lymphocytes 1.1 thou/uL (1.20-3.40); #Monocytes 1.1 thou/uL (0.11-0.59); #Neutrophils 14.6 thou/uL (1.40-6.50); %Basophils 0.3 % (0.0-1.0); %Eosinophils 3.9 % (0.0-10.0); %Monocytes 6.4 % (0.0-10.0); %Neutrophils 83.3 % (42.0-75.0); Hemoglobin 10.7 g/dL (12.0-16.0); Mean Corpuscular HGB CONC 34.8 g/dL (32.0-36.0); Mean Corpuscular Hemoglobin 33.1 pg (27.0-31.0); Mean Corpuscular Volume 95.2 fL (78.0-98.0); Mean Platelet Volume 9.3 fL (7.4-10.4); Platelet Count 159 thou/uL (130-400); RBC Distribution Width 12.3 % (11.5-14.5); Red Blood Cell (RBC) Count 3.23 mill/uL (4.20-5.40); White Blood Cell (WBC) Count 17.5 thou/uL (4.8-10.8)
[2020-01-25] MEDS: Piperacillin/Tazobactam 2.25 GM in Sodium Chloride 0.9% 100 ML IVPB SCH ×2 (05:28→15:19)
[2020-01-25 05:30] LABS: INR-International Normal Ratio 2.8; Prothrombin Time 29.3 sec (12.0-14.7)
[2020-01-25 05:44] LABS: ALT (SGPT) 13 U/L (8-55); AST (SGOT) 17 U/L (5-34); Albumin 3.1 g/dL (3.4-4.8); Alkaline Phosphatase 64 U/L (40-110); Anion Gap 20 mmol/L (10-20); BUN (Urea Nitrogen) 87 mg/dL (9.8-20.1); Bilirubin, Total 0.6 mg/dL (0.2-1.2); Calc. Creatinine Clearance 14 mL/min (70-130); Calcium 9.4 mg/dL (7.8-10.44); Carbon Dioxide 27 mmol/L (23-31); Chloride 99 mmol/L (98-107); Estimated GFR-MDRD 9; Globulin 3.1 g/dL (2.4-3.5); Glucose 191 mg/dL (83-110); Potassium 4.1 mmol/L (3.5-5.1); Protein, Total 6.2 g/dL (6.0-8.3); Sodium 142 mmol/L (136-145)
[2020-01-25] MEDS: HumaLOG 300 UNITS/3 ML VIAL SC PRN ×3 (06:06→17:15)
[2020-01-25] MEDS: Nystatin Powder 15 GM BOT TOP SCH ×2 (08:58→21:01)
--- NOTE | 2020-01-25 10:52 | PDOC.FMACP ---
Advance Care Planning - Problem (1) Palliative care encounter Status: Acute Code(s): Z51.5 - ENCOUNTER FOR PALLIATIVE CARE (2) CKD (chronic kidney disease), stage III Status: Chronic Code(s): N18.3 - CHRONIC KIDNEY DISEASE, STAGE 3 (MODERATE) * DO NOT USE * (3) Dementia Status: Chronic Code(s): F03.90 - UNSPECIFIED DEMENTIA WITHOUT BEHAVIORAL DISTURBANCE (4) Diabetes mellitus Status: Chronic Code(s): E11.9 - TYPE 2 DIABETES MELLITUS WITHOUT COMPLICATIONS (5) HTN (hypertension) Status: Chronic Code(s): I10 - ESSENTIAL (PRIMARY) HYPERTENSION (6) Morbid obesity Status: Chronic Code(s): E66.01 - MORBID (SEVERE) OBESITY DUE TO EXCESS CALORIES - Note Participants: patient, surrogate decision-maker, palliative care Summary: Palliative Care discussed Advanced Care Planning lenny Espinosa patient MPOA. Ms Morales has no living relatives and he is her designated MPOA. The diagnosis, prognosis and goals of care were discussed. Appropriate forms and documentation to accomplish the goals of care were discussed. All questions were answered. Confirmed DNAR status and completion of OOHDNAR. Aurora Mackenzie to facilitate signatures for OOHDNAR, and notify physician when ready for signature. Plan is to transfer back to [facility]. Discussed disease progression and trajectory. Jesús states it is important for him to preserve the quality of life. Discussed possibility of hospice care in the future at [place]. He is aware that he may ask at anytime for an evaluation. Palliative Care will sign off after completion of OOHDNAR as goals are identified, DNAR/OOHDNAR and transition back to [place] with inclusion of hospice in the future if appropriate. Time Spent (mins): 45
[2020-01-25] MEDS: D5W-AA 4.25% with LYTES 1,000 ML IV SCH (12:14)
--- NOTE | 2020-01-25 13:59 | PDOC.HOSPP ---
- Subjective Encounter Date: 01/25/20 Encounter Time: 07:00 Subjective: Patient seen for follow-up for acute renal failure. She is more alert today, denies any complaints. - Objective Vital Signs & Weight: Vital Signs (12 hours) Temp Pulse Pulse Resp BP BP Pulse Ox 01/25/20 11:25 97.5 F L 98 21 H 143/72 H 98 01/25/20 08:41 88 125/73 01/25/20 07:21 97.4 F L 87 20 146/78 H 98 01/25/20 05:25 157/74 H 01/25/20 03:59 97.8 F 90 20 175/97 H 97 Weight Admit Weight 219 lb 2.232 oz Weight 223 lb 11.2 oz Most Recent Monitor Data Heart Rate from ECG 100 NIBP 161/119 NIBP BP-Mean 133 Respiration from ECG 22 SpO2 97 I&O: 01/24/20 01/25/20 01/26/20 06:59 06:59 06:59 Intake Total 870 1810 Output Total 1475 2550 Balance -945 -250 Result Diagrams: 01/25/20 05:03 01/25/20 05:03 Additional Labs: Accuchecks 01/25/20 01/25/20 01/24/20 10:51 05:35 20:20 POC Glucose 172 H 196 H 171 H 01/24/20 16:47 POC Glucose 203 H I reviewed patient's labs and MAR EKG Reviewed by me: Yes (Telemetry: Atrial fibrillation) Hospitalist ROS - Review of Systems Cardiovascular: denies: chest pain, palpitations, orthopnea, paroxysmal noc. dyspnea, edema, light headedness Skin: denies: rash, lesions, venu, bruising - Medication Medications: Active Medications Generic Name Dose Route Start Last Admin Trade Name Freq PRN Reason Stop Dose Admin Furosemide 40 mg 01/24/20 06:00 01/25/20 04:24 Furosemide 40 Mg/4 Ml Vial SLOW IVP Not Given 0600,1400 WAQAR Piperacillin Sod/Tazobactam 100 mls @ 200 mls/hr 01/18/20 22:00 01/25/20 05:28 Sod 2.25 gm/ Sodium Chloride IVPB 100 mls Q8HR WAQAR Administration Amino Acids/Electrolytes/Dextrose 1,000 mls @ 70 mls/hr 01/22/20 20:00 10/09/20 12:14 Clinimix E 4.25/5 IV 1,000 mls INF WAQAR Administration Insulin Human Lispro 0 units 01/18/20 23:03 01/25/20 11:42 Humalog 300 Units/3 Ml Vial SC 2 unit .MILD SLIDING SCALE PRN Administration Mild Correctional Scale Insulin Human Lispro 0 units 01/18/20 23:03 01/19/20 21:47 Humalog 300 Units/3 Ml Vial SC 2 unit .BEDTIME SLIDING SC PRN Administration Bedtime Correctional Scale Nystatin 0 gm 01/24/20 21:00 01/25/20 08:58 Nystatin Powder 15 Gm Bot TOP 1 applic BID WAQAR Administration Sodium Chloride 10 ml 01/20/20 21:00 01/25/20 08:58 Flush - Normal Saline 10 Ml Syringe IVF 10 ml Q12HR WAQAR Administration - Exam General Appearance: awake alert General - other findings: Obese Eye: anicteric sclera Heart: irregular Respiratory: CTAB Gastrointestinal: soft Extremities: no cyanosis Skin: no rashes Musculoskeletal: normal tone Psychiatric: normal affect Hosp A/P - Plan Patient was admittedOn January 18, 2024 altered mental status with severe sepsis. She was also found to be in atrial fibrillation with rapid ventricular response. INR was also supratherapeutic. She received vitamin K for reversal of INR. She is currently on Zosyn. All cultures are negative so far, I will discontinue Zosyn. Nephrology service is following for acute kidney injury. Is also possibility that patient's initial presentation was secondary to dehydration. JAIMIE Creatinine leveling off, 4.59 today. Today A. fib with RVR Rate controlled. Supratherapeutic INR INR 2.8 today. Diabetes mellitus Continue Accu-Cheks and insulin sliding scale. Hypoglycemia Resolved. Severe sepsis Resolved Patient is on diet with risk. Appreciate speech therapy input.
--- NOTE | 2020-01-25 16:17 | RAD ---
Modified barium swallow HISTORY: Dysphagia. Feeding difficulties: FINDINGS: Exam was performed in conjunction with speech pathology with multiple consistencies. Video review is available and demonstrates early spill of contrast, more pronounced with thinner liquids. Often to the level of the piriform sinuses. With straw sips of thin liquid, deep penetration and aspiration visualized. Moderate amount of pooling within the valleculae. Partial clearing upon secondary swallowing. There was contrast and air distention of the piriform sinuses between swallows. The esophagus below the level of the hypopharynx was not evaluated. Please see separate detailed repo rt from speech pathology.
[2020-01-25] MEDS: Warfarin Sodium 5 MG TAB PO SCH (17:16)
[2020-01-26] MEDS: D5W-AA 4.25% with LYTES 1,000 ML IV SCH ×2 (04:08→18:40)
[2020-01-26 04:52] LABS: #Basophils 0.1 thou/uL (0.0-0.2); #Eosinphils 0.5 thou/uL (0.0-0.7); #Lymphocytes 1.3 thou/uL (1.20-3.40); #Monocytes 1.3 thou/uL (0.11-0.59); #Neutrophils 11.8 thou/uL (1.40-6.50); %Basophils 0.5 % (0.0-1.0); %Eosinophils 3.5 % (0.0-10.0); %Lymphocytes 8.4 % (21.0-51.0); %Monocytes 8.6 % (0.0-10.0); %Neutrophils 79.1 % (42.0-75.0); Hemoglobin 10.6 g/dL (12.0-16.0); Mean Corpuscular HGB CONC 34.4 g/dL (32.0-36.0); Mean Corpuscular Hemoglobin 32.2 pg (27.0-31.0); Mean Corpuscular Volume 93.8 fL (78.0-98.0); Mean Platelet Volume 9.1 fL (7.4-10.4); Platelet Count 159 thou/uL (130-400); RBC Distribution Width 12.4 % (11.5-14.5); White Blood Cell (WBC) Count 14.9 thou/uL (4.8-10.8)
[2020-01-26 05:43] LABS: ALT (SGPT) 12 U/L (8-55); AST (SGOT) 15 U/L (5-34); Alkaline Phosphatase 63 U/L (40-110); Anion Gap 19 mmol/L (10-20); BUN (Urea Nitrogen) 96 mg/dL (9.8-20.1); Bilirubin, Total 0.6 mg/dL (0.2-1.2); Calc. Creatinine Clearance 14 mL/min (70-130); Calcium 9.7 mg/dL (7.8-10.44); Carbon Dioxide 30 mmol/L (23-31); Chloride 98 mmol/L (98-107); Estimated GFR-MDRD 9; Globulin 3.1 g/dL (2.4-3.5); Glucose 199 mg/dL (83-110); Potassium 3.6 mmol/L (3.5-5.1); Protein, Total 6.1 g/dL (6.0-8.3); Sodium 143 mmol/L (136-145)
[2020-01-26] MEDS: HumaLOG 300 UNITS/3 ML VIAL SC PRN ×3 (06:02→17:33)
[2020-01-26] MEDS: Furosemide 40 MG/4 ML VIAL SLOW IVP SCH ×2 (06:02→14:04)
[2020-01-26] MEDS: Nystatin Powder 15 GM BOT TOP SCH ×2 (08:40→21:33)
--- NOTE | 2020-01-26 10:59 | RAD ---
Chest one view HISTORY: Pleural effusion. Follow-up. COMPARISON: 01/23/2020. FINDINGS: Cardiac silhouette is magnified, enlarged, and partially obscured by opacity at the left ba se similar to the prior study. Left hemidiaphragm predominantly obscured. Skinfold noted over the left inferior aspect of the image. Hazy opacity at the right base is also present with partial obscuration of the right hemidiaphragm. Mediastinum is midline with aortic calcification. Pulmonary vasculature upper limits of normal. No evidence of pneumothorax. IMPRESSION : Bilateral pleural fluid, pulmonary vascular congestion, and other findings are stable.
[2020-01-26] MEDS ORDERED: Furosemide 20 MG/2 ML VIAL SLOW IVP SCH (12:00)
[2020-01-26] MEDS: Warfarin Sodium 5 MG TAB PO SCH (17:34)
--- NOTE | 2020-01-26 18:58 | PDOC.HOSPP ---
- Subjective Encounter Date: 01/26/20 Encounter Time: 10:00 Subjective: The patient is sitting in bed. She is on 2L of oxygen at home, is not sure if she is on it at home or not. she denies chest pain or shortness of breath She is slightly confused. SHe does not know why she is in the hospital - Objective Vital Signs & Weight: Vital Signs (12 hours) Temp Pulse Resp BP Pulse Ox 01/26/20 15:40 97.6 F 88 17 102/77 97 01/26/20 13:35 94 147/64 H 97 01/26/20 11:20 97.0 F L 98 20 171/68 H 98 01/26/20 08:35 99 01/26/20 07:28 97.3 F L 96 22 H 148/76 H 99 Weight Admit Weight 219 lb 2.232 oz Weight 225 lb 3.2 oz Most Recent Monitor Data Heart Rate from ECG 100 NIBP 161/119 NIBP BP-Mean 133 Respiration from ECG 22 SpO2 97 I&O: 01/25/20 01/26/20 01/27/20 06:59 06:59 06:59 Intake Total 1810 2050 640 Output Total 2550 2425 750 Balance -740 -375 -110 Result Diagrams: 01/26/20 04:33 01/26/20 04:33 Additional Labs: Accuchecks 01/26/20 01/26/20 01/26/20 17:01 10:42 05:31 POC Glucose 207 H 229 H 188 H 01/25/20 21:21 POC Glucose 172 H Hospitalist ROS - Review of Systems Constitutional: denies: fever, chills - Medication Medications: Active Medications Generic Name Dose Route Start Last Admin Trade Name Freq PRN Reason Stop Dose Admin Furosemide 60 mg 01/26/20 14:00 01/26/20 14:04 Furosemide 40 Mg/4 Ml Vial SLOW IVP 60 mg 0600,1400 WAQAR Administration Amino Acids/Electrolytes/Dextrose 1,000 mls @ 70 mls/hr 01/22/20 20:00 01/26/20 18:40 Clinimix E 4.25/5 IV 1,000 mls INF WAQAR Administration Insulin Human Lispro 0 units 01/18/20 23:03 01/26/20 17:33 Humalog 300 Units/3 Ml Vial SC 3 unit .MILD SLIDING SCALE PRN Administration Mild Correctional Scale Insulin Human Lispro 0 units 01/18/20 23:03 01/19/20 21:47 Humalog 300 Units/3 Ml Vial SC 2 unit .BEDTIME SLIDING SC PRN Administration Bedtime Correctional Scale Nystatin 0 gm 01/24/20 21:00 01/26/20 08:40 Nystatin Powder 15 Gm Bot TOP 1 applic BID WAQAR Administration Sodium Chloride 10 ml 01/20/20 21:00 01/26/20 08:36 Flush - Normal Saline 10 Ml Syringe IVF 10 ml Q12HR WAQAR Administration Warfarin Sodium 5 mg 01/25/20 17:00 01/26/20 17:34 Warfarin Sodium 5 Mg Tab PO 5 mg 1700 WAQAR Administration - Exam General Appearance: NAD, awake alert Eye: PERRL, anicteric sclera ENT: normocephalic atraumatic, no oropharyngeal lesions Neck: no JVD Heart: RRR, no murmur, no gallops, no rubs Respiratory: CTAB, no wheezes, no rales, no ronchi Respiratory - other findings: diminished breath sounds Gastrointestinal: soft, non-tender, non-distended, normal bowel sounds Extremities: no cyanosis, no clubbing, 1+ LE edema Skin: normal turgor, no lesions, no rashes Neurological: cranial nerve grossly intact, normal sensation to touch, no new deficit Musculoskeletal: normal tone, normal strength, no muscle wasting Hosp A/P - Plan MBS: moderate pooling within the valleculae Chest Xray 01/22: cardiomegaly and mild vascular engorgement. Bilateral effusions and bibasilar atelectasis. Possible coexisting infiltrate in RLL Chest X-ray 01/25: bilateral pleural fluid with pulmonary vascular congestion CT brain: no acute process THis is an 89 year old female who presented with altered mental status, had WBC, tachycardia admitted for possible pneumonia Acute hypoxic respiratory failure secondary to possible diastolic CHF - ECHO 08/2019 showed EF 50-55% - started on lasix 40 mg IV Bid, will increase to 60 mg IV BID - wean oxygen saturation to 92% Sepsis secondary to pneumonia - patient had bilateral infiltrates on 01/22. She received 7 days of IV zosyn. WBC down to 14.9 - blood and urine cultures negative Acute kidney injury - possibly cardiorenal - creatinine is 4.51. Continue IV lasix 60 mg IV Bid. Creatinine slightly improving - will order renal US given slow improvement with diuresis - nephrology is following Anemia - Hb 10.6, stable - will monitor
--- NOTE | 2020-01-26 23:47 | ULT ---
US Renal Bilateral STANDARD History: Elevated creatinine Comparison: Renal ultrasound 2016 Findings: Real-time grayscale and color evaluation of the kidneys and urinary bladder was performed. Right kidney measures 10.4 x 5.2 x 5.7 cm and the left kidney measures 10.2 x 4.9 x 4.4 cm. No renal mass, hydronephrosis or abnormal calcifications. Large volume urine residual within the bladder approximate 550 mL. Impression: Large volume urine within the bladder of approximately 550 mL. No renal abnormality.
[2020-01-27 05:03] LABS: INR-International Normal Ratio 2.8; Prothrombin Time 29.5 sec (12.0-14.7)
[2020-01-27 05:06] LABS: #Eosinphils 0.4 thou/uL (0.0-0.7); #Lymphocytes 1.2 thou/uL (1.20-3.40); #Monocytes 1.4 thou/uL (0.11-0.59); #Neutrophils 11.9 thou/uL (1.40-6.50); %Basophils 0.2 % (0.0-1.0); %Eosinophils 2.9 % (0.0-10.0); %Lymphocytes 8.2 % (21.0-51.0); %Monocytes 9.2 % (0.0-10.0); %Neutrophils 79.5 % (42.0-75.0); Hemoglobin 10.9 g/dL (12.0-16.0); Mean Corpuscular HGB CONC 33.9 g/dL (32.0-36.0); Mean Corpuscular Hemoglobin 31.8 pg (27.0-31.0); Mean Corpuscular Volume 93.8 fL (78.0-98.0); Mean Platelet Volume 9.2 fL (7.4-10.4); Platelet Count 183 thou/uL (130-400); RBC Distribution Width 12.3 % (11.5-14.5); Red Blood Cell (RBC) Count 3.42 mill/uL (4.20-5.40)
[2020-01-27 05:21] LABS: ALT (SGPT) 16 U/L (8-55); AST (SGOT) 17 U/L (5-34); Albumin 3.1 g/dL (3.4-4.8); Alkaline Phosphatase 68 U/L (40-110); Anion Gap 18 mmol/L (10-20); BUN (Urea Nitrogen) 107 mg/dL (9.8-20.1); Bilirubin, Total 0.6 mg/dL (0.2-1.2); Calc. Creatinine Clearance 13 mL/min (70-130); Calcium 9.8 mg/dL (7.8-10.44); Carbon Dioxide 30 mmol/L (23-31); Chloride 97 mmol/L (98-107); Estimated GFR-MDRD 9; Globulin 3.3 g/dL (2.4-3.5); Glucose 218 mg/dL (83-110); Potassium 3.4 mmol/L (3.5-5.1); Protein, Total 6.4 g/dL (6.0-8.3); Sodium 142 mmol/L (136-145)
[2020-01-27] MEDS: Furosemide 40 MG/4 ML VIAL SLOW IVP SCH (06:19)
[2020-01-27] MEDS: HumaLOG 300 UNITS/3 ML VIAL SC PRN ×3 (06:20→17:29)
[2020-01-27] MEDS: D5W-AA 4.25% with LYTES 1,000 ML IV SCH ×2 (08:42→22:55)
[2020-01-27] MEDS: Nystatin Powder 15 GM BOT TOP SCH ×2 (08:42→22:55)
[2020-01-27] MEDS ORDERED: Potassium Chloride 20 MEQ TAB PO SCH (09:15)
[2020-01-27 13:19] LABS: Magnesium 1.7 mg/dL (1.6-2.6); Potassium 3.7 mmol/L (3.5-5.1)
[2020-01-27] MEDS ORDERED: Magnesium Oxide 400 MG TAB PO SCH (13:45)
--- NOTE | 2020-01-27 14:08 | RAD ---
Chest one view HISTORY: Pulmonary edema. COMPARISON: 01/26/2020. FINDINGS: Cardiac silhouette is magnified and enlarged. Partially obscured by bilateral pleural fluid and bibasilar basilar parenchymal opacity similar in appearance to the prior study. Mediastinum is midline with aortic calcification. No evidence of pneumothorax. IMPRESSION : Bilateral pleural fluid, vascular congestion, and other findings are stable.
[2020-01-27] MEDS ORDERED: Furosemide 40 MG TAB PO SCH (15:00)
[2020-01-27] MEDS: Warfarin Sodium 5 MG TAB PO SCH (17:18)
[2020-01-27] MEDS: Carvedilol 3.125 MG TAB PO SCH (17:39)
--- NOTE | 2020-01-27 17:45 | PDOC.HOSPP ---
- Subjective Encounter Date: 01/27/20 Encounter Time: 09:00 Subjective: F/u: heart failure and kidney failure The patient is stating she is tired and wants to sleep. SHe denies shortness of breath or chest pain. Per nurse, she has been having diarrhea that smells like C diff - Objective Vital Signs & Weight: Vital Signs (12 hours) Temp Pulse Pulse Resp BP BP Pulse Ox 01/27/20 15:37 97.9 F 93 22 H 124/63 92 L 01/27/20 11:16 97.9 F 100 18 161/70 H 92 L 01/27/20 10:15 89 127/61 01/27/20 08:54 100 140/71 01/27/20 08:35 92 L 01/27/20 08:00 98.0 F 98 18 180/91 H 92 L 01/27/20 07:57 100 Weight Admit Weight 219 lb 2.232 oz Weight 225 lb 3.2 oz Most Recent Monitor Data Heart Rate from ECG 100 NIBP 161/119 NIBP BP-Mean 133 Respiration from ECG 22 SpO2 97 I&O: 01/26/20 01/27/20 01/28/20 06:59 06:59 06:59 Intake Total 2050 1410 Output Total 2425 2400 Balance -375 -990 Result Diagrams: 01/27/20 04:32 01/27/20 12:44 Additional Labs: Accuchecks 01/27/20 01/27/20 01/27/20 17:11 11:20 05:33 POC Glucose 215 H 202 H 204 H 01/26/20 21:33 POC Glucose 171 H Hospitalist ROS - Review of Systems Constitutional: denies: fever, chills - Medication Medications: Active Medications Generic Name Dose Route Start Last Admin Trade Name Freq PRN Reason Stop Dose Admin Carvedilol 3.125 mg 01/27/20 17:00 01/27/20 17:39 Carvedilol 3.125 Mg Tab PO Not Given BID-[facility] Amino Acids/Electrolytes/Dextrose 1,000 mls @ 70 mls/hr 01/22/20 20:00 01/27/20 08:42 Clinimix E 4.25/5 IV 1,000 mls INF WAQAR Administration Insulin Human Lispro 0 units 01/18/20 23:03 01/27/20 17:29 Humalog 300 Units/3 Ml Vial SC 3 unit .MILD SLIDING SCALE PRN Administration Mild Correctional Scale Insulin Human Lispro 0 units 01/18/20 23:03 01/19/20 21:47 Humalog 300 Units/3 Ml Vial SC 2 unit .BEDTIME SLIDING SC PRN Administration Bedtime Correctional Scale Nystatin 0 gm 01/24/20 21:00 01/27/20 08:42 Nystatin Powder 15 Gm Bot TOP 1 applic BID WAQAR Administration Sodium Chloride 10 ml 01/20/20 21:00 01/27/20 08:42 Flush - Normal Saline 10 Ml Syringe IVF 10 ml Q12HR WAQAR Administration Sodium Chloride 10 ml 01/20/20 09:45 01/27/20 06:20 Flush - Normal Saline 10 Ml Syringe IVF 10 ml PRN PRN Administration Saline Flush Warfarin Sodium 5 mg 01/25/20 17:00 01/27/20 17:18 Warfarin Sodium 5 Mg Tab PO Not Given 1700 WAQAR - Exam General Appearance: NAD, awake alert Eye: PERRL, anicteric sclera ENT: normocephalic atraumatic, no oropharyngeal lesions Neck: no JVD Heart: RRR, no murmur, no gallops, no rubs Respiratory: no wheezes, no rales, no ronchi Respiratory - other findings: diminished at bases Gastrointestinal: soft, non-tender, non-distended, normal bowel sounds Extremities: no cyanosis, no clubbing, 2+ LE edema Skin: normal turgor, no lesions, no rashes Neurological: cranial nerve grossly intact, normal sensation to touch, no weakness Hosp A/P - Plan MBS: moderate pooling within the valleculae Chest Xray 01/22: cardiomegaly and mild vascular engorgement. Bilateral effusions and bibasilar atelectasis. Possible coexisting infiltrate in RLL Chest X-ray 01/25: bilateral pleural fluid with pulmonary vascular congestion CT brain: no acute process THis is an 89 year old female who presented with altered mental status, had WBC, tachycardia admitted for possible pneumonia Acute hypoxic respiratory failure secondary to possible diastolic CHF - resolved - ECHO 08/2019 showed EF 50-55%. Chest X ray unchanged today 01/26 - patient has been weaned off oxygen. Will switch to oral lasix 60 mg bid Acute kidney injury on CKD - creatinine is 4.58, unchanged. GFR is 9. Baseline creatinine normal 09/2019. Discussed with nephrology, may need dialysis soon, but defers to primary electrical controls technician Dr. Knight - renal US showed urine in bladder, per nursing patient peed after that, so no lau placed Sepsis secondary to pneumonia - resolved - patient had bilateral infiltrates on 01/22. She received 7 days of IV zosyn. WBC is 15 - blood and urine cultures negative C diff positive - start on oral vancomycin today Anemia - Hb 10.6, stable. Check TSh, vitamin B12/folate in am Disposition: possible discharge tomorrow if diarrhea improved.
[2020-01-27] MEDS: Vancomycin HCl 25 MG/ML Oral PO SCH ×2 (18:05→23:52)
[2020-01-28 05:11] LABS: INR-International Normal Ratio 3.3; Prothrombin Time 33.2 sec (12.0-14.7)
[2020-01-28 05:15] LABS: ALT (SGPT) 19 U/L (8-55); AST (SGOT) 25 U/L (5-34); Alkaline Phosphatase 68 U/L (40-110); Anion Gap 21 mmol/L (10-20); BUN (Urea Nitrogen) 119 mg/dL (9.8-20.1); Bilirubin, Total 0.6 mg/dL (0.2-1.2); Calc. Creatinine Clearance 13 mL/min (70-130); Carbon Dioxide 24 mmol/L (23-31); Chloride 101 mmol/L (98-107); Estimated GFR-MDRD 9; Globulin 3.5 g/dL (2.4-3.5); Glucose 237 mg/dL (83-110); Potassium 3.7 mmol/L (3.5-5.1); Protein, Total 6.5 g/dL (6.0-8.3); Sodium 142 mmol/L (136-145)
[2020-01-28] MEDS: Vancomycin HCl 25 MG/ML Oral PO SCH ×3 (05:30→18:25)
[2020-01-28] MEDS: HumaLOG 300 UNITS/3 ML VIAL SC PRN ×3 (05:32→18:27)
[2020-01-28 05:37] LABS: Thyroid Stimulating Hormone 1.7244 uIU/mL (0.35-4.94)
[2020-01-28 06:16] LABS: Band 12 % (5-11); Eosinophils 1 % (0-10); Hemoglobin 10.9 g/dL (12.0-16.0); Lymphocytes 11 % (21-51); MDiff Complete? YES; Mean Corpuscular HGB CONC 34.6 g/dL (32.0-36.0); Mean Corpuscular Hemoglobin 32.7 pg (27.0-31.0); Mean Corpuscular Volume 94.4 fL (78.0-98.0); Mean Platelet Volume 9.2 fL (7.4-10.4); Monocytes 7 % (0-10); Neutrophil 69 % (42-75); Platelet Count 173 thou/uL (130-400); RBC Distribution Width 12.6 % (11.5-14.5); Red Blood Cell (RBC) Count 3.34 mill/uL (4.20-5.40); White Blood Cell (WBC) Count 13.9 thou/uL (4.8-10.8)
[2020-01-28] MEDS: hydrALAZINE 25 MG TAB PO SCH ×2 (07:59→21:39)
[2020-01-28] MEDS: Carvedilol 3.125 MG TAB PO SCH (07:59)
[2020-01-28] MEDS: Nystatin Powder 15 GM BOT TOP SCH ×2 (08:00→21:40)
[2020-01-28] MEDS ORDERED: Carvedilol 3.125 MG TAB PO SCH (09:00)
[2020-01-28] MEDS: Folic Acid 1 MG TAB PO SCH (09:36)
[2020-01-28] MEDS: Furosemide 20 MG TAB PO SCH ×2 (09:36→13:27)
[2020-01-28] MEDS: D5W-AA 4.25% with LYTES 1,000 ML IV SCH (13:18)
[2020-01-28] MEDS: Carvedilol 6.25 MG TAB PO SCH (16:22)
--- NOTE | 2020-01-28 16:52 | PRG ---
DATE OF SERVICE: SUBJECTIVE: The patient is seen with no new complaint. Noted with the following vital signs. OBJECTIVE: VITAL SIGNS: Afebrile, temperature 97.7, pulse 82, respiratory rate of 18, O2 saturations are 96% with a blood pressure of 151/89. HEENT: Unremarkable. CARDIOVASCULAR SYSTEM: First and second heart sounds were heard. RESPIRATORY SYSTEM: Clear to auscultation. DIGESTIVE SYSTEM: Revealed a benign abdomen. Positive bowel sounds. EXTREMITIES: No peripheral edema. SKIN: No new gross rash. LYMPHATICS: No peripheral lymphadenopathy. LABORATORY INVESTIGATION: Showed hemoglobin of 10.9 with white count of 13,900. Chemistry showed a creatinine of 4.64 with BUN of 119. IMPRESSION: 1. Advanced chronic kidney disease stage 5. 2. Anemia, possibly anemia of chronic kidney disease. 3. Morbid obesity. PLAN: 1. Please deescalate daily blood draws to avoid iatrogenic anemia in this patient. 2. Renally dose all medications. 3. Close outpatient Nephrology followup with the patient's casket inspector, Dr. Knight strongly recommended. 4. Further management to be dependent on the clinical course. Job ID: [id number]
--- NOTE | 2020-01-28 16:53 | PRG ---
DATE OF SERVICE: 01/27/2020 OBJECTIVE: VITAL SIGNS: The patient is noted with the following vital signs; afebrile, temperature 97.7, pulse 91, respiratory rate of 20, O2 saturations of 93%, with blood pressure of 180/92. HEENT: Unremarkable. CARDIOVASCULAR: First and second heart sounds were heard. RESPIRATORY SYSTEM: Clear to auscultation. DIGESTIVE SYSTEM: Revealed a benign abdomen. EXTREMITIES: No peripheral edema. SKIN: No new gross rash. LYMPHATICS: No peripheral lymphadenopathy. IMPRESSION: 1. Advanced chronic kidney disease. 2. Advanced age. 3. Morbid obesity. 4. Anemia. PLAN: 1. Discontinue IV diuretics and transition this patient to oral diuresis. 2. Renally dose all medications. 3. Further management will be dependent on the clinical course. Job ID: [id number]
--- NOTE | 2020-01-28 18:07 | PDOC.HOSPP ---
- Subjective Encounter Date: 01/28/20 Encounter Time: 11:00 Subjective: C diff - the patient's diarrhea resolved. She had no bowel movement this morning Malnutrition - the patient is not really eating much since she does not like pureed texture. SHe is still on PPN. Discussed with dietary, supplements have been added. CHF - patient denies shortness of breath or chest pain - Objective Vital Signs & Weight: Vital Signs (12 hours) Temp Pulse Resp BP BP Pulse Ox 01/28/20 16:22 151/89 H 01/28/20 15:57 97.7 F 82 18 151/89 H 96 01/28/20 12:00 97.2 F L 97 17 116/73 99 01/28/20 08:01 173/92 H 01/28/20 08:00 97.8 F 87 19 198/108 H 95 01/28/20 07:59 173/92 H Weight Admit Weight 219 lb 2.232 oz Weight 210 lb 12.8 oz Most Recent Monitor Data Heart Rate from ECG 100 NIBP 161/119 NIBP BP-Mean 133 Respiration from ECG 22 SpO2 97 I&O: 01/27/20 01/28/20 01/29/20 06:59 06:59 06:59 Intake Total 1410 1485 Output Total 2400 2300 Balance -990 -815 Result Diagrams: 01/28/20 04:44 01/28/20 04:44 Additional Labs: Accuchecks 01/28/20 01/28/20 01/27/20 10:41 05:29 21:15 POC Glucose 243 H 240 H 181 H Hospitalist ROS - Review of Systems Constitutional: denies: fever, chills - Medication Medications: Active Medications Generic Name Dose Route Start Last Admin Trade Name Freq PRN Reason Stop Dose Admin Carvedilol 6.25 mg 01/28/20 17:00 01/28/20 16:22 Carvedilol 6.25 Mg Tab PO 6.25 mg BID-WM WAQAR Administration Folic Acid 1 mg 01/28/20 09:00 01/28/20 09:36 Folic Acid 1 Mg Tab PO 1 mg DAILY WAQAR Administration Furosemide 60 mg 01/28/20 09:00 01/28/20 13:27 Furosemide 20 Mg Tab PO 60 mg 0900,1400 WAQAR Administration Hydralazine HCl 25 mg 01/28/20 09:00 01/28/20 07:59 Hydralazine 25 Mg Tab PO 25 mg BID WAQAR Administration Amino Acids/Electrolytes/Dextrose 1,000 mls @ 70 mls/hr 01/22/20 20:00 13:18 Clinimix E 4.25/5 IV 1,000 mls INF WAQAR Administration Insulin Human Lispro 0 units 01/18/20 23:03 01/28/20 11:34 Humalog 300 Units/3 Ml Vial SC 3 unit .MILD SLIDING SCALE PRN Administration Mild Correctional Scale Insulin Human Lispro 0 units 01/18/20 23:03 01/19/20 21:47 Humalog 300 Units/3 Ml Vial SC 2 unit .BEDTIME SLIDING SC PRN Administration Bedtime Correctional Scale Nystatin 0 gm 01/24/20 21:00 01/28/20 08:00 Nystatin Powder 15 Gm Bot TOP 1 applic BID WAQAR Administration Sodium Chloride 10 ml 01/20/20 21:00 01/28/20 08:00 Flush - Normal Saline 10 Ml Syringe IVF Not Given Q12HR WAQAR Sodium Chloride 10 ml 01/20/20 09:45 01/27/20 06:20 Flush - Normal Saline 10 Ml Syringe IVF 10 ml PRN PRN Administration Saline Flush Vancomycin HCl 125 mg 01/27/20 18:00 01/28/20 11:34 Vancomycin Hcl 25 Mg/Ml Oral PO 125 mg Q6HR WAQAR Administration - Exam General Appearance: NAD, awake alert Eye: PERRL, anicteric sclera ENT: normocephalic atraumatic, no oropharyngeal lesions Neck: no JVD Heart: RRR, no murmur, no gallops, no rubs Respiratory: CTAB, no wheezes, no rales, no ronchi Gastrointestinal: soft, non-tender, non-distended, normal bowel sounds Extremities: 2+ LE edema Extremities - other findings: mild tenderness to palpation of legs Skin: normal turgor, no lesions, no rashes Skin - other findings: venous stasis changes in legs Neurological: cranial nerve grossly intact, normal sensation to touch, no weakness Musculoskeletal: normal tone, normal strength, no muscle wasting Psychiatric: normal affect, normal behavior, A&O x 3 Hosp A/P - Plan MBS: moderate pooling within the valleculae Chest Xray 01/22: cardiomegaly and mild vascular engorgement. Bilateral effusions and bibasilar atelectasis. Possible coexisting infiltrate in RLL Chest X-ray 01/25: bilateral pleural fluid with pulmonary vascular congestion Chest Xray 01/26: mild pulmonary vascular congestion CT brain: no acute process THis is an 89 year old female who presented with altered mental status, had WBC, tachycardia admitted for possible pneumonia Acute hypoxic respiratory failure secondary to possible diastolic CHF - resolved - ECHO 08/2019 showed EF 50-55%. Chest X ray unchanged today 01/26 - patient has been weaned off oxygen. She was on IV lasix and transitioned to oral, but will hold further for now Acute kidney injury on CKD - creatinine trending up slightly to 4.6. She did have improvement with IV lasix due to pulmonary edema and was transitioned to oral - given poor oral intake, will do trial of IV hydration 75 ml for an hour C diff infection - continue oral vancomycin Sepsis secondary to pneumonia - resolved - patient had bilateral infiltrates on 01/22. She received 7 days of IV zosyn. WBC is 15 - blood and urine cultures negative Malnutrition - currently on PPN, supplements added by dietary - palliative care consult placed if patient continues to have poor oral intake, only other option would be tube feeding Folate deficiency Anemia - Hb 10.6, stable. Folate levels low, started on folic acid supplements Disposition: possible discharge tomorrow if diarrhea improved.
[2020-01-28] MEDS: Sodium Chloride 0.9% 1,000 ML IV SCH (19:17)
--- NOTE | 2020-01-28 21:47 | ULT ---
BILATERAL LOWER EXTREMITY VENOUS DUPLEX EXAM: History: Bilateral lower extremity pain and edema. FINDINGS: Real-time color doppler evaluation of the right and left lower extremities were performed from groin to calf. This includes evaluation of the common femoral, superficial, and profunda femoral, saphenous , popliteal, and posterior tibial veins. This shows a patent deep venous system. There is normal comp ressibility and augmentation. There is no evidence of DVT. IMPRESSION: No evidence of DVT of either lower extremity. POS: OFF
[2020-01-29] MEDS: Vancomycin HCl 25 MG/ML Oral PO SCH ×4 (01:21→17:27)
[2020-01-29 05:01] LABS: White Blood Cell (WBC) Count 15.6 thou/uL (4.8-10.8)
[2020-01-29 05:23] LABS: Anion Gap 17 mmol/L (10-20); BUN (Urea Nitrogen) 122 mg/dL (9.8-20.1); Calc. Creatinine Clearance 12 mL/min (70-130); Calcium 9.5 mg/dL (7.8-10.44); Carbon Dioxide 26 mmol/L (23-31); Chloride 104 mmol/L (98-107); Estimated GFR-MDRD 9; Glucose 186 mg/dL (83-110); Potassium 3.2 mmol/L (3.5-5.1); Sodium 144 mmol/L (136-145)
[2020-01-29] MEDS: HumaLOG 300 UNITS/3 ML VIAL SC PRN ×3 (06:13→17:55)
[2020-01-29] MEDS: Sodium Chloride 0.9% 1,000 ML IV SCH (07:04)
[2020-01-29 07:35] LABS: Magnesium 1.9 mg/dL (1.6-2.6); Phosphorus 5.4 mg/dL (2.3-4.7)
[2020-01-29] MEDS ORDERED: Potassium Chloride 20 MEQ TAB PO SCH (08:00)
[2020-01-29] MEDS: hydrALAZINE 25 MG TAB PO SCH (08:39)
[2020-01-29] MEDS: Folic Acid 1 MG TAB PO SCH (08:39)
[2020-01-29] MEDS: Carvedilol 6.25 MG TAB PO SCH (08:39)
[2020-01-29] MEDS: Nystatin Powder 15 GM BOT TOP SCH ×2 (08:40→22:00)
[2020-01-29] MEDS: Albumin 25% 25 GM/100 ML BOT IVPB SCH ×2 (11:01→17:27)
[2020-01-29 12:26] LABS: INR-International Normal Ratio 3.2; Prothrombin Time 33.2 sec (12.0-14.7)
--- NOTE | 2020-01-29 13:30 | PDOC.PALCO ---
Palliative Care Consult - Consult Details Requesting Physician: Dr Lieberman Reason for Consult: goals of care, complex decision-making - Pertinent HPI 89 percy old female who resides in a senior living facility in [place]. She has no family, and a long time friend Jesús is patient MPOA. Ms Morales initially presented to [facility] as a transfer from [facility] secondary to increase in altered mental status. She was hypoglycemic and with a UIT. Further evaluation identified Afib with RVR, given Cardizem and transferred to [facility] for higher level of care. Remains with confusion, and total assist with ADL. Patient verbal but a poor historian. - Pertinent PMH Afib, diabetes, hypothyroid - Social History Smoking Status: Never smoker Smoking: no tobacco exposure Alcohol Use: none Drug Use History: none Living Situation: senior living resident - Allergies Allergies/Adverse Reactions: Allergies Allergy/AdvReac Type Severity Reaction Status Date / Time No Known Drug Allergies Allergy Verified 09/09/19 19:24 - Subjective Awake, denies complaints, confused. Poor intake as patient does not like texture change for pureed diet secondary to aspiration risk, on PPN. - ROS Non Response: due to mental status - Objective Vital Signs: Vital Signs - Most Recent Temp Pulse Resp BP Pulse Ox 97.6 F 90 18 86/75 L 95 01/29/20 10:55 01/29/20 10:55 01/29/20 10:55 01/29/20 10:55 01/29/20 10:55 Palliative Performance Scale: 30 - Physical Exam Constitutional: NAD, ill appearing HEENT: moist MMs, sclera anicteric Respiratory: no wheezing, diminished lung sound Cardiovascular: irregular Gastrointestinal: soft, non-tender Deviation from normal: obese Genitourinary: incontinent Musculoskeletal: edema present Neurology: moves all 4 limbs Skin: cap refill <2 seconds, fragile - Problem List (1) Palliative care encounter Code(s): Z51.5 - ENCOUNTER FOR PALLIATIVE CARE Current Visit: Yes Status: Acute (2) CKD (chronic kidney disease), stage III Code(s): N18.3 - CHRONIC KIDNEY DISEASE, STAGE 3 (MODERATE) * DO NOT USE * Current Visit: No Status: Chronic (3) Dementia Code(s): F03.90 - UNSPECIFIED DEMENTIA WITHOUT BEHAVIORAL DISTURBANCE Current Visit: No Status: Chronic (4) Diabetes mellitus Code(s): E11.9 - TYPE 2 DIABETES MELLITUS WITHOUT COMPLICATIONS Current Visit: No Status: Chronic (5) HTN (hypertension) Code(s): I10 - ESSENTIAL (PRIMARY) HYPERTENSION Current Visit: No Status: Chronic (6) Morbid obesity Code(s): E66.01 - MORBID (SEVERE) OBESITY DUE TO EXCESS CALORIES Current Visit: No Status: Chronic - Plan/Recommendations Plan: Secondary to patient not desiring pureed diet, and poor intake MPOA electing to transition to hospice to seek quality of life and management of symptoms. Goal of Care: Transition to hospice with diet with risk, seek management of symptoms and promote optimal end of life care. Jesús patient MPOA here to complete OOHDNAR. Please also refer to palliative care notes in note section Palliative Care communicated with CM and hospitalist. [55] minutes spent on this encounter with >50% of the time in counseling and coordination of care. Thank you for this very appropriate consult.
--- NOTE | 2020-01-29 14:05 | PDOC.NEPPN ---
- Subjective Encounter Date: 01/29/20 Subjective: 89 y/o usp female admitted due to mental status change. Seen by Nephrology in follow up for JAIMIE. Still confused. Oral intake in still suboptima. No nausea or vomiting. - Objective Vital Signs & Weight: Vital Signs (12 hours) Temp Pulse Resp BP BP BP BP 01/29/20 10:55 97.6 F 90 18 86/75 L 01/29/20 09:50 125/90 111/63 01/29/20 08:39 86 135/77 01/29/20 07:30 97.5 F L 86 20 135/77 01/29/20 03:47 97.5 F L 95 17 135/85 Pulse Ox 01/29/20 10:55 95 01/29/20 09:50 01/29/20 08:39 01/29/20 07:30 96 01/29/20 03:47 96 Weight Admit Weight 219 lb 2.232 oz Weight 212 lb Most Recent Monitor Data Heart Rate from ECG 100 NIBP 161/119 NIBP BP-Mean 133 Respiration from ECG 22 SpO2 97 I&O: 01/28/20 01/29/20 01/30/20 06:59 06:59 06:59 Intake Total 1485 1840 300 Output Total 2300 1050 200 Balance -815 790 100 Result Diagrams: 01/29/20 04:45 01/29/20 04:45 Additional Labs: Accuchecks 01/29/20 01/28/20 03:59 23:54 POC Glucose 166 H 159 H Nephrology ROS - Medication Medications: Active Medications Generic Name Dose Route Start Last Admin Trade Name Jean Claudeq PRN Reason Stop Dose Admin Albumin Human 25 gm 01/29/20 09:00 01/29/20 11:01 Albumin 25% 25 Gm/100 Ml Bot IVPB 01/29/20 17:01 25 gm Q8H WAQAR Administration Carvedilol 6.25 mg 01/28/20 17:00 01/29/20 08:39 Carvedilol 6.25 Mg Tab PO 6.25 mg BID-WM WAQAR Administration Folic Acid 1 mg 01/28/20 09:00 01/29/20 08:39 Folic Acid 1 Mg Tab PO 1 mg DAILY WAQAR Administration Hydralazine HCl 25 mg 01/28/20 09:00 01/29/20 08:39 Hydralazine 25 Mg Tab PO 25 mg BID WAQAR Administration Insulin Human Lispro 0 units 01/18/20 23:03 01/29/20 11:23 Humalog 300 Units/3 Ml Vial SC 2 unit .MILD SLIDING SCALE PRN Administration Mild Correctional Scale Insulin Human Lispro 0 units 01/18/20 23:03 01/19/20 21:47 Humalog 300 Units/3 Ml Vial SC 2 unit .BEDTIME SLIDING SC PRN Administration Bedtime Correctional Scale Nystatin 0 gm 01/24/20 21:00 01/29/20 08:40 Nystatin Powder 15 Gm Bot TOP 1 applic BID WAQAR Administration Sodium Chloride 10 ml 01/20/20 21:00 01/29/20 08:38 Flush - Normal Saline 10 Ml Syringe IVF Not Given Q12HR WAQAR Sodium Chloride 10 ml 01/20/20 09:45 01/27/20 06:20 Flush - Normal Saline 10 Ml Syringe IVF 10 ml PRN PRN Administration Saline Flush Vancomycin HCl 125 mg 01/27/20 18:00 01/29/20 11:22 Vancomycin Hcl 25 Mg/Ml Oral PO 125 mg Q6HR WAQAR Administration - Exam General Appearance: awake alert General - other findings: obese Eye: anicteric sclera ENT: normocephalic atraumatic, moist mucosa Respiratory - other findings: fair air entry bilaterally with some transmitted sound. No crackles or rhon Cardiovascular: irregular Gastrointestinal: soft, non-distended, normal bowel sounds Extremities - other findings: trace edema Neurological: CN's grossly intact Neurological - other findings: memory lapsea and some confusion noted Nephrology Results - Labs Result Diagrams: 01/29/20 04:45 01/29/20 04:45 Lab results: WBC 15.6 thou/uL (4.8-10.8) H 01/29/20 04:45 Hgb 10.9 g/dL (12.0-16.0) L 01/28/20 04:44 Hct 31.5 % (36.0-47.0) L 01/28/20 04:44 MCV 94.4 fL (78.0-98.0) 01/28/20 04:44 Plt Count 173 thou/uL (130-400) 01/28/20 04:44 Neutrophils % 79.5 % (42.0-75.0) H 01/27/20 04:32 Band Neuts % (Manual) 12 % (5-11) H 01/28/20 04:44 ABG pH 7.50 (7.35-7.45) H 01/20/20 09:01 ABG pCO2 38.2 mmHg (35.0-45.0) 01/20/20 09:01 ABG pO2 51.5 mmHg (> 60.0) L* 01/20/20 09:01 Sodium 144 mmol/L (136-145) 01/29/20 04:45 Potassium 3.2 mmol/L (3.5-5.1) L 01/29/20 04:45 Chloride 104 mmol/L (98-107) 01/29/20 04:45 Carbon Dioxide 26 mmol/L (23-31) 01/29/20 04:45 BUN 122 mg/dL (9.8-20.1) H 01/29/20 04:45 Creatinine 4.66 mg/dL (0.6-1.1) H 01/29/20 04:45 Glucose 186 mg/dL (83-110) H 01/29/20 04:45 Lactic Acid 3.9 mmol/L (0.5-2.2) H 01/21/20 05:47 Calcium 9.5 mg/dL (7.8-10.44) 01/29/20 04:45 Total Bilirubin 0.6 mg/dL (0.2-1.2) 01/28/20 04:44 AST 25 U/L (5-34) 01/28/20 04:44 ALT 19 U/L (8-55) 01/28/20 04:44 Alkaline Phosphatase 68 U/L (40-110) 01/28/20 04:44 Ammonia 46 umol/L (18-72) 01/18/20 19:04 Creatine Kinase 541 U/L (29-168) H 01/20/20 11:38 CK-MB (CK-2) 22.3 ng/mL (0-6.6) H* 01/18/20 17:52 Troponin I 0.046 ng/mL (< 0.028) H 01/18/20 17:52 C-Reactive Protein 7.55 mg/dL (= or < 0.5) H 01/20/20 03:17 B-Natriuretic Peptide 230.3 pg/mL (0-100) H 01/27/20 12:44 Serum Total Protein 6.5 g/dL (6.0-8.3) 01/28/20 04:44 Albumin 3.0 g/dL (3.4-4.8) L 01/29/20 05:00 Urine Ketones Trace mg/dL (Negative) A 01/20/20 15:35 Urine Blood 2+ (Negative) A 01/20/20 15:35 Urine Nitrite Negative (Negative) 01/20/20 15:35 Ur Leukocyte Esterase 75 Kulwinder/uL (Negative) A 01/20/20 15:35 Urine RBC 11-20 HPF (0-3) A 01/20/20 15:35 Urine WBC 4-6 HPF (0-3) A 01/20/20 15:35 Ur Squamous Epith Cells 0-3 HPF (0-3) 01/20/20 15:35 Urine Bacteria None Seen HPF (None Seen) 01/20/20 15:35 Sodium 144 mmol/L (136-145) 01/29/20 04:45 Potassium 3.2 mmol/L (3.5-5.1) L 01/29/20 04:45 Chloride 104 mmol/L (98-107) 01/29/20 04:45 Carbon Dioxide 26 mmol/L (23-31) 01/29/20 04:45 Anion Gap 17 mmol/L (10-20) 01/29/20 04:45 BUN 122 mg/dL (9.8-20.1) H 01/29/20 04:45 Creatinine 4.66 mg/dL (0.6-1.1) H 01/29/20 04:45 Glucose 186 mg/dL (83-110) H 01/29/20 04:45 Calcium 9.5 mg/dL (7.8-10.44) 01/29/20 04:45 Phosphorus 5.4 mg/dL (2.3-4.7) H 01/29/20 05:00 Magnesium 1.9 mg/dL (1.6-2.6) 01/29/20 05:00 Albumin 3.0 g/dL (3.4-4.8) L 01/29/20 05:00 Nephrology AP PN - Plan ASSESSMENT Acute renal failure. Most likely related to hemodynamic factors related to sepsis and volume depletion.Superimposed ATN is a concern. Continues to make adequate urine. Creat is stable at about 4.5 which very high relative to baseline. Marked Azotemia; Due to Parenteral nutrition and diuretic superimposed on JAIMIE Lactic acidosis: Most likely related to use of metformin, acute kidney injury, C dif and sepsis. High anion gap Metabolic acidosis. Hypernatremia. Resolved Edema /fluid overload. Improved with diuretic. Hypokalemia Hypomagnesemia Acute encephalopathy: Multifactorial from hypoglycemia, sepsis, and electrolyte derangement as well as acid-base derangement. Improved but not baseline. Contribution of uremia cannot be ruled out. Presumed complicated urinary tract infection. Hypocalcemia. Diabetes mellitus with hyperglycemia. Hypertension: Control is acceptable Paroxysmal atrial fibrillation with poorly controlled rate. Supratherapeutic INR with no overt bleeding. PLAN Agree with Discontinuation of lasix. Expand intravascular space with colloid and crystalloid. NS and albumin. Get repeat UA and urine electrolytes Replete serum potassium and magnesium as indicated. Monitor renal function Avoid nephrotoxic agents
[2020-01-29 14:30] LABS: Bacteria/HPF 2+ HPF (None Seen); Bilirubin Negative (Negative); Blood, Urine 1+ (Negative); Clarity Turbid (Clear); Glucose, Urine (Dipstick) 30 mg/dL (Negative); Ketone, Urine Negative (Negative); Leukocyte Negative Leu/uL (Negative); Nitrite Negative (Negative); Protein, Urine (Dipstick) 20 mg/dL (Neg-Trace); RBC/HPF 0-3 HPF (0-3); Specific Gravity, Urine 1.011 (1.002-1.036); Squamous Epithelial 0-3 HPF (0-3); Urobilinogen Normal mg/dL (Less than 2)
[2020-01-29 15:12] LABS: Creatinine, Urine 35.47 mg/dL (47-110)
--- NOTE | 2020-01-29 15:43 | PDOC.HOSPP ---
- Subjective Encounter Date: 01/29/20 Encounter Time: 09:00 Subjective: The patient has no complaints. She still continues to have poor po intake. She denies cough, chest pain, trouble urinating. She is confused still. Per nephrology, this was not her baseline in the past - Objective Vital Signs & Weight: Vital Signs (12 hours) Temp Pulse Resp BP BP BP BP 01/29/20 15:00 96.3 F L 89 16 123/74 01/29/20 10:55 97.6 F 90 18 86/75 L 01/29/20 09:50 125/90 111/63 01/29/20 08:39 86 135/77 01/29/20 07:30 97.5 F L 86 20 135/77 01/29/20 03:47 97.5 F L 95 17 135/85 Pulse Ox 01/29/20 15:00 95 01/29/20 10:55 95 01/29/20 09:50 01/29/20 08:39 01/29/20 07:30 96 01/29/20 03:47 96 Weight Admit Weight 219 lb 2.232 oz Weight 212 lb Most Recent Monitor Data Heart Rate from ECG 100 NIBP 161/119 NIBP BP-Mean 133 Respiration from ECG 22 SpO2 97 I&O: 01/28/20 01/29/20 01/30/20 06:59 06:59 06:59 Intake Total 1485 1840 300 Output Total 2300 1050 200 Balance -815 790 100 Result Diagrams: 01/29/20 04:45 01/29/20 04:45 Additional Labs: Accuchecks 01/29/20 01/28/20 03:59 23:54 POC Glucose 166 H 159 H Hospitalist ROS - Review of Systems Constitutional: denies: fever, chills - Medication Medications: Active Medications Generic Name Dose Route Start Last Admin Trade Name Freq PRN Reason Stop Dose Admin Albumin Human 25 gm 01/29/20 09:00 01/29/20 11:01 Albumin 25% 25 Gm/100 Ml Bot IVPB 01/29/20 17:01 25 gm Q8H WAQAR Administration Carvedilol 6.25 mg 01/28/20 17:00 01/29/20 08:39 Carvedilol 6.25 Mg Tab PO 6.25 mg BID-WM WAQAR Administration Folic Acid 1 mg 01/28/20 09:00 01/29/20 08:39 Folic Acid 1 Mg Tab PO 1 mg DAILY WAQAR Administration Hydralazine HCl 25 mg 01/28/20 09:00 01/29/20 08:39 Hydralazine 25 Mg Tab PO 25 mg BID WAQAR Administration Insulin Human Lispro 0 units 01/18/20 23:03 01/29/20 11:23 Humalog 300 Units/3 Ml Vial SC 2 unit .MILD SLIDING SCALE PRN Administration Mild Correctional Scale Insulin Human Lispro 0 units 01/18/20 23:03 01/19/20 21:47 Humalog 300 Units/3 Ml Vial SC 2 unit .BEDTIME SLIDING SC PRN Administration Bedtime Correctional Scale Nystatin 0 gm 01/24/20 21:00 01/29/20 08:40 Nystatin Powder 15 Gm Bot TOP 1 applic BID WAQAR Administration Sodium Chloride 10 ml 01/20/20 21:00 01/29/20 08:38 Flush - Normal Saline 10 Ml Syringe IVF Not Given Q12HR WAQAR Sodium Chloride 10 ml 01/20/20 09:45 01/27/20 06:20 Flush - Normal Saline 10 Ml Syringe IVF 10 ml PRN PRN Administration Saline Flush Vancomycin HCl 125 mg 01/27/20 18:00 01/29/20 11:22 Vancomycin Hcl 25 Mg/Ml Oral PO 125 mg Q6HR WAQAR Administration - Exam General Appearance: NAD, awake alert Eye: PERRL, anicteric sclera ENT: normocephalic atraumatic, no oropharyngeal lesions Neck: no JVD Heart: RRR, no murmur, no gallops, no rubs Respiratory: CTAB, no wheezes, no rales, no ronchi Gastrointestinal: soft, non-tender, non-distended, normal bowel sounds Extremities: 1+ LE edema Skin - other findings: venous stasis changes Neurological: cranial nerve grossly intact, normal sensation to touch, no focal deficits, no new deficit Musculoskeletal: normal tone, normal strength, no muscle wasting Hosp A/P - Plan MBS: moderate pooling within the valleculae Chest Xray 01/22: cardiomegaly and mild vascular engorgement. Bilateral effusions and bibasilar atelectasis. Possible coexisting infiltrate in RLL Chest X-ray 01/25: bilateral pleural fluid with pulmonary vascular congestion Chest Xray 01/26: mild pulmonary vascular congestion CT brain: no acute process THis is an 89 year old female who presented with altered mental status, had WBC, tachycardia admitted for possible pneumonia Acute hypoxic respiratory failure secondary to possible diastolic CHF - resolved - ECHO 08/2019 showed EF 50-55%. Chest X ray unchanged today 01/26 - patient has been weaned off oxygen. She was on IV lasix and transitioned to oral, but will hold further for now Acute kidney injury on CKD - creatinine still 4.66. No improvement with fluids yesterday. Discussed with nephrology, will trial albumin today Hypertension - will discontinue hydralazine and coreg since BP dropped to 86 systolic todya Hypokalemia - potassium 3.2, will replace Malnutrition - currently on PPN, supplements added by dietary - palliative care has been consulted, family is interested in hospice C diff infection - continue oral vancomycin day 3 Sepsis secondary to pneumonia - resolved - patient had bilateral infiltrates on 01/22. She received 7 days of IV zosyn. WBC is 15 - blood and urine cultures negative Folate deficiency Anemia - Hb 10.6, stable. Folate levels low, started on folic acid supplements Disposition: pending improvement in oral intake. May transition to hospice
[2020-01-29] MEDS ORDERED: Carvedilol 6.25 MG TAB PO SCH (15:44)
--- NOTE | 2020-01-29 16:15 | PDOC.PALFU ---
Palliative Care Follow-up Note Palliative Care will sign off. JUSTENOmar Espinosa has elected to transition to Hospice care at [facility] to manage symptoms and not further seek aggressive measures.
[2020-01-29] MEDS ORDERED: Warfarin Sodium 2.5 MG TAB PO SCH (17:00)
[2020-01-30] MEDS: Vancomycin HCl 25 MG/ML Oral PO SCH ×4 (01:54→18:41)
[2020-01-30 05:02] LABS: White Blood Cell (WBC) Count 15.1 thou/uL (4.8-10.8)
[2020-01-30 05:11] LABS: INR-International Normal Ratio 3.3; Prothrombin Time 34.6 sec (12.0-14.7)
[2020-01-30 05:25] LABS: Anion Gap 19 mmol/L (10-20); BUN (Urea Nitrogen) 119 mg/dL (9.8-20.1); Calc. Creatinine Clearance 12 mL/min (70-130); Calcium 10.2 mg/dL (7.8-10.44); Carbon Dioxide 31 mmol/L (23-31); Chloride 103 mmol/L (98-107); Estimated GFR-MDRD 8; Glucose 191 mg/dL (83-110); Potassium 3.1 mmol/L (3.5-5.1); Sodium 150 mmol/L (136-145)
[2020-01-30] MEDS: HumaLOG 300 UNITS/3 ML VIAL SC PRN ×2 (06:01→12:07)
[2020-01-30] MEDS: D5 1/4 NS 1,000 ML IV SCH ×2 (08:39→16:43)
[2020-01-30] MEDS: Folic Acid 1 MG TAB PO SCH (08:40)
[2020-01-30] MEDS: Nystatin Powder 15 GM BOT TOP SCH ×2 (08:41→21:12)
--- NOTE | 2020-01-30 15:17 | PDOC.NEPPN ---
- Subjective Encounter Date: 01/30/20 Subjective: Seen in follow up for JAIMIE and acidosis. Oral intake is still suboptimal. Sarah doesnt like dysphagic diet which she is on currently. No fever. - Objective Vital Signs & Weight: Vital Signs (12 hours) Temp Pulse Resp BP BP BP Pulse Ox 01/30/20 11:47 97.4 F L 97 18 141/77 H 100 01/30/20 11:06 141/75 H 130/80 01/30/20 08:39 97 01/30/20 08:02 99 01/30/20 08:00 97.4 F L 81 19 140/77 97 01/30/20 04:59 99 01/30/20 03:56 97.3 F L 78 20 153/81 H 94 L Weight Admit Weight 219 lb 2.232 oz Weight 212 lb 1.6 oz Most Recent Monitor Data Heart Rate from ECG 100 NIBP 161/119 NIBP BP-Mean 133 Respiration from ECG 22 SpO2 97 I&O: 01/29/20 01/30/20 01/31/20 06:59 06:59 06:59 Intake Total 1840 390 Output Total 1050 525 Balance 790 -135 Result Diagrams: 01/30/20 04:43 01/30/20 04:43 Additional Labs: Accuchecks 01/30/20 01/30/20 01/30/20 11:44 05:33 00:11 POC Glucose 187 H 171 H 187 H 01/29/20 01/29/20 01/28/20 17:27 11:12 16:45 POC Glucose 194 H 186 H 238 H Nephrology ROS - Medication Medications: Active Medications Generic Name Dose Route Start Last Admin Trade Name Freq PRN Reason Stop Dose Admin Folic Acid 1 mg 01/28/20 09:00 01/30/20 08:40 Folic Acid 1 Mg Tab PO 1 mg DAILY WAQAR Administration Dextrose/Sodium Chloride 1,000 mls @ 100 mls/hr 01/30/20 06:45 01/30/20 08:39 D5 1/4 Ns IV 1,000 mls .Q10H WAQAR Administration Insulin Human Lispro 0 units 01/18/20 23:03 01/30/20 12:07 Humalog 300 Units/3 Ml Vial SC 2 unit .MILD SLIDING SCALE PRN Administration Mild Correctional Scale Insulin Human Lispro 0 units 01/18/20 23:03 01/19/20 21:47 Humalog 300 Units/3 Ml Vial SC 2 unit .BEDTIME SLIDING SC PRN Administration Bedtime Correctional Scale Nystatin 0 gm 01/24/20 21:00 01/30/20 08:41 Nystatin Powder 15 Gm Bot TOP 1 applic BID WAQAR Administration Sodium Chloride 10 ml 01/20/20 21:00 01/30/20 08:42 Flush - Normal Saline 10 Ml Syringe IVF 10 ml Q12HR WAQAR Administration Sodium Chloride 10 ml 01/20/20 09:45 01/27/20 06:20 Flush - Normal Saline 10 Ml Syringe IVF 10 ml PRN PRN Administration Saline Flush Vancomycin HCl 125 mg 01/27/20 18:00 01/30/20 12:45 Vancomycin Hcl 25 Mg/Ml Oral PO 125 mg Q6HR WAQAR Administration - Exam General Appearance: awake alert General - other findings: obese Eye: anicteric sclera ENT: normocephalic atraumatic, moist mucosa Neck: no JVD Respiratory: CTAB, no wheezes, no ronchi, normal chest expansion, no tachypnea Cardiovascular: irregular Gastrointestinal: soft, non-distended, normal bowel sounds Extremities: no cyanosis Extremities - other findings: trace edema of the ankles. Neurological: no focal deficits Neurological - other findings: Awake and oriented to person at least. Confusion and memory lapses noted Nephrology Results - Labs Result Diagrams: 01/30/20 04:43 01/30/20 04:43 Lab results: WBC 15.1 thou/uL (4.8-10.8) H 01/30/20 04:43 Hgb 10.9 g/dL (12.0-16.0) L 01/28/20 04:44 Hct 31.5 % (36.0-47.0) L 01/28/20 04:44 MCV 94.4 fL (78.0-98.0) 01/28/20 04:44 Plt Count 173 thou/uL (130-400) 01/28/20 04:44 Neutrophils % 79.5 % (42.0-75.0) H 01/27/20 04:32 Band Neuts % (Manual) 12 % (5-11) H 01/28/20 04:44 ABG pH 7.50 (7.35-7.45) H 01/20/20 09:01 ABG pCO2 38.2 mmHg (35.0-45.0) 01/20/20 09:01 ABG pO2 51.5 mmHg (> 60.0) L* 01/20/20 09:01 Sodium 150 mmol/L (136-145) H 01/30/20 04:43 Potassium 3.1 mmol/L (3.5-5.1) L 01/30/20 04:43 Chloride 103 mmol/L (98-107) 01/30/20 04:43 Carbon Dioxide 31 mmol/L (23-31) 01/30/20 04:43 BUN 119 mg/dL (9.8-20.1) H 01/30/20 04:43 Creatinine 4.95 mg/dL (0.6-1.1) H 01/30/20 04:43 Glucose 191 mg/dL (83-110) H 01/30/20 04:43 Lactic Acid 3.9 mmol/L (0.5-2.2) H 01/21/20 05:47 Calcium 10.2 mg/dL (7.8-10.44) 01/30/20 04:43 Total Bilirubin 0.6 mg/dL (0.2-1.2) 01/28/20 04:44 AST 25 U/L (5-34) 01/28/20 04:44 ALT 19 U/L (8-55) 01/28/20 04:44 Alkaline Phosphatase 68 U/L (40-110) 01/28/20 04:44 Ammonia 46 umol/L (18-72) 01/18/20 19:04 Creatine Kinase 541 U/L (29-168) H 01/20/20 11:38 CK-MB (CK-2) 22.3 ng/mL (0-6.6) H* 01/18/20 17:52 Troponin I 0.046 ng/mL (< 0.028) H 01/18/20 17:52 C-Reactive Protein 7.55 mg/dL (= or < 0.5) H 01/20/20 03:17 B-Natriuretic Peptide 230.3 pg/mL (0-100) H 01/27/20 12:44 Serum Total Protein 6.5 g/dL (6.0-8.3) 01/28/20 04:44 Albumin 3.0 g/dL (3.4-4.8) L 01/29/20 05:00 Urine Ketones Negative mg/dL (Negative) 01/29/20 14:07 Urine Blood 1+ (Negative) A 01/29/20 14:07 Urine Nitrite Negative (Negative) 01/29/20 14:07 Ur Leukocyte Esterase Negative Kulwinder/uL (Negative) 01/29/20 14:07 Urine RBC 0-3 HPF (0-3) 01/29/20 14:07 Urine WBC 4-6 HPF (0-3) A 01/29/20 14:07 Ur Squamous Epith Cells 0-3 HPF (0-3) 01/29/20 14:07 Urine Bacteria 2+ HPF (None Seen) A 01/29/20 14:07 Sodium 150 mmol/L (136-145) H 01/30/20 04:43 Potassium 3.1 mmol/L (3.5-5.1) L 01/30/20 04:43 Chloride 103 mmol/L (98-107) 01/30/20 04:43 Carbon Dioxide 31 mmol/L (23-31) 01/30/20 04:43 Anion Gap 19 mmol/L (10-20) 01/30/20 04:43 BUN 119 mg/dL (9.8-20.1) H 01/30/20 04:43 Creatinine 4.95 mg/dL (0.6-1.1) H 01/30/20 04:43 Glucose 191 mg/dL (83-110) H 01/30/20 04:43 Calcium 10.2 mg/dL (7.8-10.44) 01/30/20 04:43 Phosphorus 5.4 mg/dL (2.3-4.7) H 01/29/20 05:00 Magnesium 1.9 mg/dL (1.6-2.6) 01/29/20 05:00 Albumin 3.0 g/dL (3.4-4.8) L 01/29/20 05:00 Nephrology AP PN - Plan ASSESSMENT Acute renal failure. Most likely related to hemodynamic factors related to sepsis and volume depletion.Superimposed ATN is a concern. Continues to make adequate urine. Creat is up today..Most like due to volume depletion. Marked Azotemia; Due to Parenteral nutrition and diuretic superimposed on JAIMIE Lactic acidosis: Most likely related to use of metformin, acute kidney injury, C dif and sepsis. High anion gap Metabolic acidosis. Hypernatremia. Resolved Edema /fluid overload. Improved if not resolvedwith diuretic. Hypokalemia Hypomagnesemia Acute encephalopathy: Multifactorial from hypoglycemia, sepsis, and electrolyte derangement as well as acid-base derangement. Improved but not baseline. Contribution of uremia cannot be ruled out. Presumed complicated urinary tract infection. Hypocalcemia. Diabetes mellitus with hyperglycemia. Hypertension: Control is acceptable Paroxysmal atrial fibrillation with poorly controlled rate. Supratherapeutic INR with no overt bleeding. PLAN Will start d51/4 saline due to hypernatremia. Replete serum potassium with KCL. [place] oral intake advised. Nursing staff to help feed patient. Contiue oral supplements Repeat BMP today Avoid nephrotoxic agents
[2020-01-30 15:27] LABS: Anion Gap 20 mmol/L (10-20); BUN (Urea Nitrogen) 121 mg/dL (9.8-20.1); Calc. Creatinine Clearance 12 mL/min (70-130); Calcium 10.1 mg/dL (7.8-10.44); Carbon Dioxide 26 mmol/L (23-31); Chloride 106 mmol/L (98-107); Estimated GFR-MDRD 9; Glucose 228 mg/dL (83-110); Potassium 3.7 mmol/L (3.5-5.1); Sodium 148 mmol/L (136-145)
[2020-01-30] MEDS ORDERED: Warfarin Sodium 5 MG TAB PO SCH (17:00)
--- NOTE | 2020-01-30 19:45 | PDOC.HOSPP ---
- Subjective Encounter Date: 01/30/20 Encounter Time: 09:00 Subjective: The patient remains confused. She did not drink supplemental shakes when offered by nursing but did when patient care coordinator was there The patient was watching travel channel, and was asking what country they were showing. She then asked me "what office we are in. " Discussed with Jesús, FINA who has been her friend for a long time. Stated he would consider hospice, but is in no romano to get her back to the group home and wants to see if she gets better first - Objective Vital Signs & Weight: Vital Signs (12 hours) Temp Pulse Resp BP BP BP Pulse Ox 01/30/20 15:48 97.5 F L 79 18 110/87 98 01/30/20 11:47 97.4 F L 97 18 141/77 H 100 01/30/20 11:06 141/75 H 130/80 01/30/20 08:39 97 01/30/20 08:02 99 01/30/20 08:00 97.4 F L 81 19 140/77 97 Weight Admit Weight 219 lb 2.232 oz Weight 212 lb 1.6 oz Most Recent Monitor Data Heart Rate from ECG 100 NIBP 161/119 NIBP BP-Mean 133 Respiration from ECG 22 SpO2 97 I&O: 01/29/20 01/30/20 01/31/20 06:59 06:59 06:59 Intake Total 1840 390 Output Total 1050 525 Balance 790 -135 Result Diagrams: 01/30/20 04:43 01/30/20 14:58 Additional Labs: Accuchecks 01/30/20 01/30/20 01/30/20 17:14 11:44 05:33 POC Glucose 244 H 187 H 171 H 01/30/20 00:11 POC Glucose 187 H Hospitalist ROS - Review of Systems Constitutional: denies: fever, chills - Medication Medications: Active Medications Generic Name Dose Route Start Last Admin Trade Name Freq PRN Reason Stop Dose Admin Folic Acid 1 mg 01/28/20 09:00 01/30/20 08:40 Folic Acid 1 Mg Tab PO 1 mg DAILY WAQAR Administration Dextrose/Sodium Chloride 1,000 mls @ 100 mls/hr 01/30/20 06:45 01/30/20 16:43 D5 1/4 Ns IV 1,000 mls .Q10H WAQAR Administration Insulin Human Lispro 0 units 01/18/20 23:03 01/30/20 12:07 Humalog 300 Units/3 Ml Vial SC 2 unit .MILD SLIDING SCALE PRN Administration Mild Correctional Scale Insulin Human Lispro 0 units 01/18/20 23:03 01/19/20 21:47 Humalog 300 Units/3 Ml Vial SC 2 unit .BEDTIME SLIDING SC PRN Administration Bedtime Correctional Scale Nystatin 0 gm 01/24/20 21:00 01/30/20 08:41 Nystatin Powder 15 Gm Bot TOP 1 applic BID WAQAR Administration Sodium Chloride 10 ml 01/20/20 21:00 01/30/20 08:42 Flush - Normal Saline 10 Ml Syringe IVF 10 ml Q12HR WAQAR Administration Sodium Chloride 10 ml 01/20/20 09:45 01/27/20 06:20 Flush - Normal Saline 10 Ml Syringe IVF 10 ml PRN PRN Administration Saline Flush Vancomycin HCl 125 mg 01/27/20 18:00 01/30/20 18:41 Vancomycin Hcl 25 Mg/Ml Oral PO 125 mg Q6HR WAQAR Administration - Exam General Appearance: NAD, awake alert Eye: PERRL, anicteric sclera ENT: normocephalic atraumatic Neck: no JVD Heart: RRR, no murmur, no gallops, no rubs Respiratory: CTAB, no wheezes, no rales, no ronchi Gastrointestinal: soft, non-tender, non-distended, normal bowel sounds Extremities: no cyanosis, no clubbing, no edema Skin: normal turgor, no lesions, no rashes Neurological: cranial nerve grossly intact, normal sensation to touch, no weakness Musculoskeletal: normal tone, normal strength, no muscle wasting Psychiatric: A&O x 3 Hosp A/P - Plan MBS: moderate pooling within the valleculae Chest Xray 01/22: cardiomegaly and mild vascular engorgement. Bilateral effusions and bibasilar atelectasis. Possible coexisting infiltrate in RLL Chest X-ray 01/25: bilateral pleural fluid with pulmonary vascular congestion Chest Xray 01/26: mild pulmonary vascular congestion CT brain: no acute process THis is an 89 year old female who presented with altered mental status, had WBC, tachycardia admitted for possible pneumonia Acute hypoxic respiratory failure secondary to possible diastolic CHF - resolved - ECHO 08/2019 showed EF 50-55%. Chest X ray unchanged today 01/26 - patient has been weaned off oxygen. She was on IV lasix and transitioned to o ral, but will hold further for now due to poor oral intake Acute kidney injury on CKD - creatinine still 4.66. Continue IV fluids due to poor oral intake - she was on PPN . Encouraged patient to drink shakes Hypernatremia - started on D5 1/4NS by nephrology. SOdium improved to 148. Will monitor Hypertension -controlled, will monitor Leukocytosis - WBC improved to 15.1, asymptomatic, will monitor Malnutrition - she is on IV fluids, supplemental shakes ordered by dietary C diff infection - continue oral vancomycin day 4 Sepsis secondary to pneumonia - resolved - patient had bilateral infiltrates on 01/22. She received 7 days of IV zosyn. WBC is 15 - blood and urine cultures negative Folate deficiency Anemia - Hb 10.6, stable. Folate levels low, started on folic acid supplements Disposition: pending improvement in oral intake. May transition to hospice
[2020-01-31] MEDS: Vancomycin HCl 25 MG/ML Oral PO SCH ×4 (01:18→17:13)
[2020-01-31 05:22] LABS: INR-International Normal Ratio 3.1; Prothrombin Time 32.4 sec (12.0-14.7)
[2020-01-31 05:39] LABS: Anion Gap 16 mmol/L (10-20); BUN (Urea Nitrogen) 117 mg/dL (9.8-20.1); Calc. Creatinine Clearance 11 mL/min (70-130); Carbon Dioxide 34 mmol/L (23-31); Chloride 102 mmol/L (98-107); Estimated GFR-MDRD 8; Glucose 270 mg/dL (83-110); Potassium 3.2 mmol/L (3.5-5.1); Sodium 149 mmol/L (136-145)
[2020-01-31] MEDS: D5 1/4 NS 1,000 ML IV SCH (06:02)
[2020-01-31] MEDS: HumaLOG 300 UNITS/3 ML VIAL SC PRN ×2 (06:03→12:03)
[2020-01-31] MEDS: Nystatin Powder 15 GM BOT TOP SCH ×2 (10:38→20:44)
[2020-01-31] MEDS: Folic Acid 1 MG TAB PO SCH (10:38)
[2020-01-31] MEDS ORDERED: Sodium Chloride 0.45% 1,000 ML IV SCH (11:00)
[2020-01-31] MEDS ORDERED: D5 1/4 NS 1,000 ML IV SCH (11:00)
[2020-01-31] MEDS ORDERED: Potassium Chloride 20 MEQ TAB PO SCH (12:00)
[2020-01-31 12:37] LABS: Anion Gap 15 mmol/L (10-20); BUN (Urea Nitrogen) 106 mg/dL (9.8-20.1); Calc. Creatinine Clearance 12 mL/min (70-130); Calcium 9.2 mg/dL (7.8-10.44); Carbon Dioxide 26 mmol/L (23-31); Chloride 107 mmol/L (98-107); Estimated GFR-MDRD 9; Glucose 235 mg/dL (83-110); Potassium 3.4 mmol/L (3.5-5.1); Sodium 145 mmol/L (136-145)
[2020-01-31] MEDS ORDERED: Sodium Chloride 0.45 % 250 ML BAG IV SCH (13:15)
--- NOTE | 2020-01-31 16:00 | PDOC.NEPPN ---
- Subjective Encounter Date: 01/31/20 Encounter Time: 08:05 Subjective: Seen in follow up for JAIMIE and electrolyte derangements. No new problem. No nausea or vomiting. Oral intake remained suboptimal. - Objective Vital Signs & Weight: Vital Signs (12 hours) Temp Pulse Resp BP Pulse Ox 01/31/20 15:06 97.9 F 83 14 128/78 96 01/31/20 11:35 97.8 F 88 20 114/50 L 96 01/31/20 08:20 96 01/31/20 08:18 96 01/31/20 08:10 97.8 F 83 16 100/58 L 96 01/31/20 05:55 98.0 F 74 20 126/73 97 Weight Admit Weight 219 lb 2.232 oz Weight 212 lb 1.6 oz Most Recent Monitor Data Heart Rate from ECG 100 NIBP 161/119 NIBP BP-Mean 133 Respiration from ECG 22 SpO2 97 I&O: 01/30/20 01/31/20 02/01/20 06:59 06:59 06:59 Intake Total 390 2120 600 Output Total 525 2 Balance -135 2118 600 Result Diagrams: 02/02/20 05:03 02/02/20 05:03 Additional Labs: Accuchecks 01/31/20 01/31/20 01/31/20 11:20 05:51 01:29 POC Glucose 228 H 242 H 220 H 01/30/20 17:14 POC Glucose 244 H Nephrology ROS - Medication Medications: Active Medications Generic Name Dose Route Start Last Admin Trade Name Freq PRN Reason Stop Dose Admin Folic Acid 1 mg 01/28/20 09:00 01/31/20 10:38 Folic Acid 1 Mg Tab PO 1 mg DAILY WAQAR Administration Insulin Human Lispro 0 units 01/18/20 23:03 01/31/20 12:03 Humalog 300 Units/3 Ml Vial SC 3 unit .MILD SLIDING SCALE PRN Administration Mild Correctional Scale Insulin Human Lispro 0 units 01/18/20 23:03 01/19/20 21:47 Humalog 300 Units/3 Ml Vial SC 2 unit .BEDTIME SLIDING SC PRN Administration Bedtime Correctional Scale Nystatin 0 gm 01/24/20 21:00 01/31/20 10:38 Nystatin Powder 15 Gm Bot TOP 1 applic BID WAQAR Administration Sodium Chloride 10 ml 01/20/20 21:00 01/31/20 09:22 Flush - Normal Saline 10 Ml Syringe IVF Not Given Q12HR WAQAR Sodium Chloride 10 ml 01/20/20 09:45 01/27/20 06:20 Flush - Normal Saline 10 Ml Syringe IVF 10 ml PRN PRN Administration Saline Flush Vancomycin HCl 125 mg 01/27/20 18:00 01/31/20 12:03 Vancomycin Hcl 25 Mg/Ml Oral PO 125 mg Q6HR WAQAR Administration Nephrology Results - Labs Result Diagrams: 02/02/20 05:03 02/02/20 05:03 Lab results: WBC 15.1 thou/uL (4.8-10.8) H 01/30/20 04:43 Hgb 10.9 g/dL (12.0-16.0) L 01/28/20 04:44 Hct 31.5 % (36.0-47.0) L 01/28/20 04:44 MCV 94.4 fL (78.0-98.0) 01/28/20 04:44 Plt Count 173 thou/uL (130-400) 01/28/20 04:44 Neutrophils % 79.5 % (42.0-75.0) H 01/27/20 04:32 Band Neuts % (Manual) 12 % (5-11) H 01/28/20 04:44 ABG pH 7.50 (7.35-7.45) H 01/20/20 09:01 ABG pCO2 38.2 mmHg (35.0-45.0) 01/20/20 09:01 ABG pO2 51.5 mmHg (> 60.0) L* 01/20/20 09:01 Sodium 145 mmol/L (136-145) 01/31/20 12:05 Potassium 3.4 mmol/L (3.5-5.1) L 01/31/20 12:05 Chloride 107 mmol/L (98-107) 01/31/20 12:05 Carbon Dioxide 26 mmol/L (23-31) 01/31/20 12:05 BUN 106 mg/dL (9.8-20.1) H 01/31/20 12:05 Creatinine 4.75 mg/dL (0.6-1.1) H 01/31/20 12:05 Glucose 235 mg/dL (83-110) H 01/31/20 12:05 Lactic Acid 3.9 mmol/L (0.5-2.2) H 01/21/20 05:47 Calcium 9.2 mg/dL (7.8-10.44) 01/31/20 12:05 Total Bilirubin 0.6 mg/dL (0.2-1.2) 01/28/20 04:44 AST 25 U/L (5-34) 01/28/20 04:44 ALT 19 U/L (8-55) 01/28/20 04:44 Alkaline Phosphatase 68 U/L (40-110) 01/28/20 04:44 Ammonia 46 umol/L (18-72) 01/18/20 19:04 Creatine Kinase 541 U/L (29-168) H 01/20/20 11:38 CK-MB (CK-2) 22.3 ng/mL (0-6.6) H* 01/18/20 17:52 Troponin I 0.046 ng/mL (< 0.028) H 01/18/20 17:52 C-Reactive Protein 7.55 mg/dL (= or < 0.5) H 01/20/20 03:17 B-Natriuretic Peptide 230.3 pg/mL (0-100) H 01/27/20 12:44 Serum Total Protein 6.5 g/dL (6.0-8.3) 01/28/20 04:44 Albumin 3.5 g/dL (3.4-4.8) 01/30/20 14:58 Urine Ketones Negative mg/dL (Negative) 01/29/20 14:07 Urine Blood 1+ (Negative) A 01/29/20 14:07 Urine Nitrite Negative (Negative) 01/29/20 14:07 Ur Leukocyte Esterase Negative K[place]inder/uL (Negative) 01/29/20 14:07 Urine RBC 0-3 HPF (0-3) 01/29/20 14:07 Urine WBC 4-6 HPF (0-3) A 01/29/20 14:07 Ur Squamous Epith Cells 0-3 HPF (0-3) 01/29/20 14:07 Urine Bacteria 2+ HPF (None Seen) A 01/29/20 14:07 Sodium 145 mmol/L (136-145) 01/31/20 12:05 Potassium 3.4 mmol/L (3.5-5.1) L 01/31/20 12:05 Chloride 107 mmol/L (98-107) 01/31/20 12:05 Carbon Dioxide 26 mmol/L (23-31) 01/31/20 12:05 Anion Gap 15 mmol/L (10-20) 01/31/20 12:05 BUN 106 mg/dL (9.8-20.1) H 01/31/20 12:05 Creatinine 4.75 mg/dL (0.6-1.1) H 01/31/20 12:05 Glucose 235 mg/dL (83-110) H 01/31/20 12:05 Calcium 9.2 mg/dL (7.8-10.44) 01/31/20 12:05 Phosphorus 5.4 mg/dL (2.3-4.7) H 01/29/20 05:00 Magnesium 1.9 mg/dL (1.6-2.6) 01/29/20 05:00 Albumin 3.5 g/dL (3.4-4.8) 01/30/20 14:58 Nephrology AP PN - Plan ASSESSMENT Acute renal failure. Most likely related to hemodynamic factors related to sepsis and volume depletion.Superimposed ATN is a concern. Continues to make adequate urine. Creat is up today..Most like due to volume depletion. Marked Azotemia; Due to Parenteral nutrition and diuretic superimposed on JAIMIE Lactic acidosis: Most likely related to use of metformin, acute kidney injury, C dif and sepsis. High anion gap Metabolic acidosis. Hypernatremia. Resolved Edema /fluid overload. Improved if not resolvedwith diuretic. Hypokalemia Hypomagnesemia Acute encephalopathy: Multifactorial from hypoglycemia, sepsis, and electrolyte derangement as well as acid-base derangement. Improved but not baseline. Contribution of uremia cannot be ruled out. Presumed complicated urinary tract infection. Hypocalcemia. Diabetes mellitus with hyperglycemia. Hypertension: Control is acceptable Paroxysmal atrial fibrillation with poorly controlled rate. Supratherapeutic INR with no overt bleeding. PLAN Will start d51/4 saline due to hypernatremia. Replete serum potassium with KCL. [place] oral intake advised. Nursing staff to help feed patient. Contiue oral supplements Repeat BMP today Avoid nephrotoxic agents
[2020-01-31] MEDS: Sodium Chloride 0.45% 1,000 ML IV SCH (16:46)
--- NOTE | 2020-01-31 18:16 | PDOC.HOSPP ---
- Subjective Encounter Date: 01/31/20 Encounter Time: 08:00 Subjective: The patient is still confused. She denies any cough, or chest pain. She has not had a bowel movement today. She does have mild abdominal pain . She is still not eating much - Objective Vital Signs & Weight: Vital Signs (12 hours) Temp Pulse Resp BP Pulse Ox 01/31/20 15:06 97.9 F 83 14 128/78 96 01/31/20 11:35 97.8 F 88 20 114/50 L 96 01/31/20 08:20 96 01/31/20 08:18 96 01/31/20 08:10 97.8 F 83 16 100/58 L 96 Weight Admit Weight 219 lb 2.232 oz Weight 212 lb 1.6 oz Most Recent Monitor Data Heart Rate from ECG 100 NIBP 161/119 NIBP BP-Mean 133 Respiration from ECG 22 SpO2 97 I&O: 01/30/20 01/31/20 02/01/20 06:59 06:59 06:59 Intake Total 390 2120 2600 Output Total 525 2 275 Balance -135 2118 2325 Result Diagrams: 01/30/20 04:43 01/31/20 12:05 Additional Labs: Accuchecks 01/31/20 01/31/20 01/31/20 17:49 11:20 05:51 POC Glucose 138 H 228 H 242 H 01/31/20 01:29 POC Glucose 220 H Hospitalist ROS - Review of Systems ROS unobtainable: due to mental status - Medication Medications: Active Medications Generic Name Dose Route Start Last Admin Trade Name Freq PRN Reason Stop Dose Admin Folic Acid 1 mg 01/28/20 09:00 01/31/20 10:38 Folic Acid 1 Mg Tab PO 1 mg DAILY WAQAR Administration Sodium Chloride 1,000 mls @ 125 mls/hr 01/31/20 16:45 01/31/20 16:46 1/2 Normal Saline IV 1,000 mls .Q8H WAQAR Administration Insulin Human Lispro 0 units 01/18/20 23:03 01/31/20 12:03 Humalog 300 Units/3 Ml Vial SC 3 unit .MILD SLIDING SCALE PRN Administration Mild Correctional Scale Insulin Human Lispro 0 units 01/18/20 23:03 01/19/20 21:47 Humalog 300 Units/3 Ml Vial SC 2 unit .BEDTIME SLIDING SC PRN Administration Bedtime Correctional Scale Nystatin 0 gm 01/24/20 21:00 01/31/20 10:38 Nystatin Powder 15 Gm Bot TOP 1 applic BID WAQAR Administration Sodium Chloride 10 ml 01/20/20 21:00 01/31/20 09:22 Flush - Normal Saline 10 Ml Syringe IVF Not Given Q12HR WAQAR Sodium Chloride 10 ml 01/20/20 09:45 01/27/20 06:20 Flush - Normal Saline 10 Ml Syringe IVF 10 ml PRN PRN Administration Saline Flush Vancomycin HCl 125 mg 01/27/20 18:00 01/31/20 17:13 Vancomycin Hcl 25 Mg/Ml Oral PO 125 mg Q6HR WAQAR Administration - Exam General Appearance: NAD, awake alert General - other findings: confused Neck: supple, symmetric, no JVD Heart: RRR, no murmur, no gallops, no rubs Respiratory: CTAB, no wheezes, no rales, no ronchi Gastrointestinal - other findings: LUQ and LLQ tenderness Extremities - other findings: venous stasis changes in extremities Neurological: cranial nerve grossly intact, normal sensation to touch, no weakness Hosp A/P - Plan MBS: moderate pooling within the valleculae Chest Xray 01/22: cardiomegaly and mild vascular engorgement. Bilateral effusions and bibasilar atelectasis. Possible coexisting infiltrate in RLL Chest X-ray 01/25: bilateral pleural fluid with pulmonary vascular congestion Chest Xray 01/26: mild pulmonary vascular congestion CT brain: no acute process THis is an 89 year old female who presented with altered mental status, had WBC, tachycardia admitted for possible pneumonia Acute kidney injury on CKD - improved to 4.75 with IV fluids however still not significant enough - will discuss with nephrology further recommendations - continue PPN Hypernatremia - resolved with IV fluids Malnutrition - continue supplemental shakes and PPN Acute hypoxic respiratory failure secondary to possible diastolic CHF - resolved - ECHO 08/2019 showed EF 50-55%. Chest X ray unchanged today 01/26 - patient has been weaned off oxygen with IV lasix Hypertension -controlled, will monitor Leukocytosis - WBC improved to 15.1, asymptomatic, will monitor C diff infection - continue oral vancomycin day 08/25 Sepsis secondary to pneumonia - resolved - patient had bilateral infiltrates on 01/22. She received 7 days of IV zosyn. WBC is 15 - blood and urine cultures negative Folate deficiency Anemia - Hb 10.6, stable. Continue folic acid supplements for deficiency Disposition: pending improvement in oral intake. May consider transitioning to hospice
[2020-02-01] MEDS: Vancomycin HCl 25 MG/ML Oral PO SCH ×5 (00:30→23:21)
[2020-02-01] MEDS: Sodium Chloride 0.45% 1,000 ML IV SCH (00:38)
[2020-02-01] MEDS: HumaLOG 300 UNITS/3 ML VIAL SC PRN ×3 (03:34→18:12)
[2020-02-01 06:07] VITALS: BMI 34.8
--- NOTE | 2020-02-01 06:46 | PRG ---
DATE OF SERVICE: 01/31/2020 SERVICE: Nephrology. SUBJECTIVE: An 89-year-old obese female, seen in followup for acute kidney injury and electrolyte derangements. Oral intake remains suboptimal. No nausea or vomiting. Remained afebrile. OBJECTIVE: VITAL SIGNS: Temperature 97.8, pulse 83, respiratory rate 16, SpO2 of 96% on room air, and blood pressure is 100/58. I and O in the last 24 hours showed total intake of 2120 with recorded output of 2 mL. The patient was on diaper and accurate quantification of urine output could not be measured. GENERAL: Obese elderly female, in no obvious distress. Afebrile. Anicteric. Acyanotic. HEENT: Normocephalic, atraumatic. Oral mucosa is mildly dry. NECK: Supple with no JVD. CARDIOVASCULAR: Irregular. Normal heart sounds 1 and 2. RESPIRATORY: Fair air entry bilaterally with no obvious crackle or rhonchi or use of accessory muscles. GI: Obese . EXTREMITIES: Grossly normal looking. Trace ankle edema bilaterally. No erythema appreciated. EXPERIMENTAL [employer]OCKET[employer] MECH[employer]IC: Conscious and awake. Oriented to person and place at least. Moves all extremities, but weakly. DIAGNOSTIC DATA: Chemistry today showed sodium 149, potassium 3.2, chloride 102, CO2 of 34, BUN 117, creatinine 5.05, glucose 270, calcium 10.0. Of note, sodium has gone up from 148 yesterday to 149 today while BUN has gone down from 121 to 117. Creatinine, however, went up from 4.82 to 5.05. ASSESSMENT: 1. Acute kidney injury: Creatinine has been consistently elevated. The patient was on diuretics for several days with increase in both BUN and creatinine. This is due to hemodynamic factors related to volume contraction and aggressive diuretic therapy. The patient also has poor oral intake. The patient was supposed to get IV fluids last night, but had IV access issues. 2. Chronic kidney disease, stage 3. 3. Hypernatremia: Due to dehydration with excess free water deficit. 4. Hypokalemia. 5. Marked azotemia: Marginal improvement from 121 yesterday to 117: Due to diuretics. The patient was on parenteral nutrition previously. 6. Acute encephalopathy: Due to acute illness as well as uremia related to renal dysfunction. PLAN: 1. We will give a bolus of hypertonic solution x2 L and recheck renal function subsequently. We also discussed dialytic therapy with relatives/next of kin. This will acutely improve mental status as well as uremia while renal function improves. We will, however, wait on this until after the bolus and renal function. 2. We will also replete serum potassium. Further treatment to follow depending on hospital course. [place] oral intake advised. Care plan discussed with primary attending. Job ID: [id number]
[2020-02-01 07:23] LABS: INR-International Normal Ratio 2.1; Prothrombin Time 23.6 sec (12.0-14.7)
[2020-02-01 07:26] LABS: Hemoglobin 9.4 g/dL (12.0-16.0); Mean Corpuscular HGB CONC 33.2 g/dL (32.0-36.0); Mean Corpuscular Hemoglobin 32.2 pg (27.0-31.0); Mean Corpuscular Volume 96.9 fL (78.0-98.0); Mean Platelet Volume 9.5 fL (7.4-10.4); Platelet Count 191 thou/uL (130-400); RBC Distribution Width 13.5 % (11.5-14.5); Red Blood Cell (RBC) Count 2.93 mill/uL (4.20-5.40); White Blood Cell (WBC) Count 17.9 thou/uL (4.8-10.8)
[2020-02-01 08:03] LABS: Anion Gap 16 mmol/L (10-20); BUN (Urea Nitrogen) 97 mg/dL (9.8-20.1); Calc. Creatinine Clearance 13 mL/min (70-130); Calcium 9.8 mg/dL (7.8-10.44); Carbon Dioxide 22 mmol/L (23-31); Chloride 109 mmol/L (98-107); Estimated GFR-MDRD 9; Glucose 174 mg/dL (83-110); Potassium 4.2 mmol/L (3.5-5.1); Sodium 143 mmol/L (136-145)
[2020-02-01] MEDS: Nystatin Powder 15 GM BOT TOP SCH ×2 (10:54→21:29)
[2020-02-01] MEDS: Folic Acid 1 MG TAB PO SCH (10:54)
[2020-02-01] MEDS ORDERED: Polyethylene Glycol 3350 17 GM Packet PO SCH (12:30)
--- NOTE | 2020-02-01 13:38 | CT ---
Exam: Abdomen CT without contrast Pelvic CT without contrast HISTORY: Poor historian. Abdominal distention and pain. C. difficile. COMPARISON: 01/18/2020 FINDINGS: Abdomen CT: Lung bases:Interval development of a moderate right-sided effusion with consolidation due to atelecta sis, pneumonia or aspiration. Normal development of a small left-sided effusion with lung parenchymal opacities likely representing passive atelectasis Heart size: Normal heart size. No significant pericardial fluid. There are coronary calcifications. Aorta: Atherosclerosis. No periaortic fat stranding. Solid organs: Limited evaluation by the lack of IV contrast. Grossly no solid organ abnormality. Lymph nodes: No gastrohepatic, retrocrural or periportal lymphadenopathy Gallbladder: No acute abnormality Mesentery: No mass, lymphadenopathy, free air or free fluid Kidneys: Bilaterally, no hydronephrosis, nephrolithiasis or perinephric fat stranding. Bilateral uret ers have a normal caliber. No hydroureter, periureteral fat stranding or ureterolithiasis. Alimentary canal: Limited evaluation by the lack of oral contrast. There is moderate to severe gastri c distention. There is mucosal thickening involving the duodenum. Multiple normal caliber small bowel loops. Normal ileocecal cecal junction. Normal caliber appendix. Scattered fecal material in a nondistended, nondilated colon. Diverticulosis, without evidence of diverticulitis. CT PELVIS: Limited evaluation due to beam attenuation artifact from bilateral hip prostheses. No mass, adenopathy, free air or free fluid. Surgically absent uterus Urinary bladder: Decompressed and cannot be adequately assessed Osseous structures: There is diffuse bone demineralization. Multilevel degenerative changes of the vi sualized distal thoracic and lumbar spine. IMPRESSION: 1. Moderate to severe gastric distention. Consider nasogastric tube placement for decompression. 2. Possible duodenitis. 3. Diverticulosis, without evidence of diverticulitis. No evidence of a small bowel obstruction. Transcribed Date/Time: 02/01/2020 1:40 PM
--- NOTE | 2020-02-01 16:07 | PDOC.NEPPN ---
- Subjective Encounter Date: 02/01/20 Encounter Time: 08:15 Subjective: Since in follow up for JAIMIE. Still confused and unable to provide significant history. Oral intake is still poor. - Objective Vital Signs & Weight: Vital Signs (12 hours) Temp Pulse Resp BP BP BP Pulse Ox 02/01/20 12:00 98 F 95 20 128/59 L 96 02/01/20 10:29 105/66 99/71 02/01/20 08:30 113/69 02/01/20 08:28 98 F 90 26 H 94/55 L 97 Weight Admit Weight 219 lb 2.232 oz Weight 215 lb 14.4 oz Most Recent Monitor Data Heart Rate from ECG 100 NIBP 161/119 NIBP BP-Mean 133 Respiration from ECG 22 SpO2 97 I&O: 01/31/20 02/01/20 02/02/20 06:59 06:59 06:59 Intake Total 2120 3914 Output Total 2 575 Balance 2118 3339 Result Diagrams: 02/01/20 07:02 02/01/20 07:02 Additional Labs: Accuchecks 02/01/20 02/01/20 01/31/20 11:50 03:16 23:39 POC Glucose 178 H 214 H 228 H 01/31/20 17:49 POC Glucose 138 H Nephrology ROS - Medication Medications: Active Medications Generic Name Dose Route Start Last Admin Trade Name Freq PRN Reason Stop Dose Admin Folic Acid 1 mg 01/28/20 09:00 02/01/20 10:54 Folic Acid 1 Mg Tab PO Not Given DAILY WAQAR Sodium Bicarbonate 75 meq/ 1,000 mls @ 46.512 mls/hr 02/01/20 08:30 02/01/20 11:06 Sodium Chloride IV 1,000 mls INF WAQAR Administration Insulin Human Lispro 0 units 01/18/20 23:03 02/01/20 13:03 Humalog 300 Units/3 Ml Vial SC 2 unit .MILD SLIDING SCALE PRN Administration Mild Correctional Scale Insulin Human Lispro 0 units 01/18/20 23:03 02/01/20 03:34 Humalog 300 Units/3 Ml Vial SC 2 unit .BEDTIME SLIDING SC PRN Administration Bedtime Correctional Scale Nystatin 0 gm 01/24/20 21:00 02/01/20 10:54 Nystatin Powder 15 Gm Bot TOP 1 applic BID WAQAR Administration Sodium Chloride 10 ml 01/20/20 21:00 02/01/20 10:32 Flush - Normal Saline 10 Ml Syringe IVF Not Given Q12HR WAQAR Sodium Chloride 10 ml 01/20/20 09:45 01/27/20 06:20 Flush - Normal Saline 10 Ml Syringe IVF 10 ml PRN PRN Administration Saline Flush Vancomycin HCl 125 mg 01/27/20 18:00 02/01/20 13:02 Vancomycin Hcl 25 Mg/Ml Oral PO 125 mg Q6HR WAQAR Administration - Exam General Appearance: awake alert General - other findings: Obese, no distress Eye: anicteric sclera ENT: normocephalic atraumatic, moist mucosa Neck: symmetric, no JVD Respiratory - other findings: Fair air entry bilaterally Cardiovascular: irregular Gastrointestinal - other findings: Obese, enlarged, soft with normal BS. Extremities: 1+ LE edema Neurological - other findings: Conscious and alert, oriented to person at least. memory lapses noted. Musculoskeletal: generalized weakness Nephrology Results - Labs Result Diagrams: 02/01/20 07:02 02/01/20 07:02 Lab results: WBC 17.9 thou/uL (4.8-10.8) H 02/01/20 07:02 Hgb 9.4 g/dL (12.0-16.0) L 02/01/20 07:02 Hct 28.4 % (36.0-47.0) L 02/01/20 07:02 MCV 96.9 fL (78.0-98.0) 02/01/20 07:02 Plt Count 191 thou/uL (130-400) 02/01/20 07:02 Neutrophils % 79.5 % (42.0-75.0) H 01/27/20 04:32 Band Neuts % (Manual) 12 % (5-11) H 01/28/20 04:44 ABG pH 7.50 (7.35-7.45) H 01/20/20 09:01 ABG pCO2 38.2 mmHg (35.0-45.0) 01/20/20 09:01 ABG pO2 51.5 mmHg (> 60.0) L* 01/20/20 09:01 Sodium 143 mmol/L (136-145) 02/01/20 07:02 Potassium 4.2 mmol/L (3.5-5.1) 02/01/20 07:02 Chloride 109 mmol/L (98-107) H 02/01/20 07:02 Carbon Dioxide 22 mmol/L (23-31) L 02/01/20 07:02 BUN 97 mg/dL (9.8-20.1) H 02/01/20 07:02 Creatinine 4.49 mg/dL (0.6-1.1) H 02/01/20 07:02 Glucose 174 mg/dL (83-110) H 02/01/20 07:02 Lactic Acid 1.0 mmol/L (0.5-2.2) 02/01/20 12:44 Calcium 9.8 mg/dL (7.8-10.44) 02/01/20 07:02 Total Bilirubin 0.6 mg/dL (0.2-1.2) 01/28/20 04:44 AST 25 U/L (5-34) 01/28/20 04:44 ALT 19 U/L (8-55) 01/28/20 04:44 Alkaline Phosphatase 68 U/L (40-110) 01/28/20 04:44 Ammonia 46 umol/L (18-72) 01/18/20 19:04 Creatine Kinase 541 U/L (29-168) H 01/20/20 11:38 CK-MB (CK-2) 22.3 ng/mL (0-6.6) H* 01/18/20 17:52 Troponin I 0.046 ng/mL (< 0.028) H 01/18/20 17:52 C-Reactive Protein 7.55 mg/dL (= or < 0.5) H 01/20/20 03:17 B-Natriuretic Peptide 230.3 pg/mL (0-100) H 01/27/20 12:44 Serum Total Protein 6.5 g/dL (6.0-8.3) 01/28/20 04:44 Albumin 3.5 g/dL (3.4-4.8) 01/30/20 14:58 Urine Ketones Negative mg/dL (Negative) 01/29/20 14:07 Urine Blood 1+ (Negative) A 01/29/20 14:07 Urine Nitrite Negative (Negative) 01/29/20 14:07 Ur Leukocyte Esterase Negative Kulwinder/uL (Negative) 01/29/20 14:07 Urine RBC 0-3 HPF (0-3) 01/29/20 14:07 Urine WBC 4-6 HPF (0-3) A 01/29/20 14:07 Ur Squamous Epith Cells 0-3 HPF (0-3) 01/29/20 14:07 Urine Bacteria 2+ HPF (None Seen) A 01/29/20 14:07 Sodium 143 mmol/L (136-145) 02/01/20 07:02 Potassium 4.2 mmol/L (3.5-5.1) 02/01/20 07:02 Chloride 109 mmol/L (98-107) H 02/01/20 07:02 Carbon Dioxide 22 mmol/L (23-31) L 02/01/20 07:02 Anion Gap 16 mmol/L (-20) 02/01/20 07:02 BUN 97 mg/dL (9.8-20.1) H 02/01/20 07:02 Creatinine 4.49 mg/dL (0.6-1.1) H 02/01/20 07:02 Glucose 174 mg/dL (83-110) H 02/01/20 07:02 Calcium 9.8 mg/dL (7.8-10.44) 02/01/20 07:02 Phosphorus 5.4 mg/dL (2.3-4.7) H 01/29/20 05:00 Magnesium 1.9 mg/dL (1.6-2.6) 01/29/20 05:00 Albumin 3.5 g/dL (3.4-4.8) 01/30/20 14:58 Nephrology AP PN - Plan ASSESSMENT Acute renal failure. Most likely related to hemodynamic factors related to se psis and volume depletion.Superimposed ATN is a concern. Continues to make adequate urine. Creatand BUN are down. Marked Azotemia; Due to Parenteral nutrition and diuretic superimposed on JAIMIE. Improved with IVF Lactic acidosis: Most likely related to use of metformin, acute kidney injury, C dif and sepsis. High anion gap Metabolic acidosis. Hypernatremia. Resolved Edema /fluid overload. Improved. Hypokalemia Hypomagnesemia Acute encephalopathy: Multifactorial from hypoglycemia, sepsis, and electrolyte derangement as well as acid-base derangement. Improved but not baseline. Contribution of uremia cannot be ruled out. Presumed urinary tract infection. Hypocalcemia. Diabetes mellitus with hyperglycemia. Hypertension: Control is acceptable Paroxysmal atrial fibrillation with poorly controlled rate. Supratherapeutic INR with no overt bleeding. PLAN Start bicarb containing IVF at 50 cc/hr as oral intake is still suboptimal. [place] oral intake advised. Contiue oral supplements Avoid nephrotoxic agents
[2020-02-01] MEDS ORDERED: Warfarin Sodium 5 MG TAB PO SCH (17:00)
--- NOTE | 2020-02-01 20:10 | PDOC.HOSPP ---
- Subjective Encounter Date: 02/01/20 Subjective: The patient has no complaints. She denies SOB. She does not feel like eating and per nursing does not eat much She denies abdominal pain. She denies cough. She states she is in [place], [place]. She does not know the building - Objective Vital Signs & Weight: Vital Signs (12 hours) Temp Pulse Resp BP BP BP Pulse Ox 02/01/20 16:40 98.3 F 97 20 112/68 96 02/01/20 12:00 98 F 95 20 128/59 L 96 02/01/20 10:29 105/66 99/71 02/01/20 08:30 113/69 02/01/20 08:28 98 F 90 26 H 94/55 L 97 Weight Admit Weight 219 lb 2.232 oz Weight 215 lb 14.4 oz Most Recent Monitor Data Heart Rate from ECG 100 NIBP 161/119 NIBP BP-Mean 133 Respiration from ECG 22 SpO2 97 I&O: 01/31/20 02/01/20 02/02/20 06:59 06:59 06:59 Intake Total 2120 3914 607 Output Total 2 575 300 Balance 2118 3339 307 Result Diagrams: 02/01/20 07:02 02/01/20 07:02 Additional Labs: Accuchecks 02/01/20 02/01/20 02/01/20 17:57 11:50 03:16 POC Glucose 163 H 178 H 214 H 01/31/20 23:39 POC Glucose 228 H Hospitalist ROS - Review of Systems Constitutional: denies: fever, chills - Medication Medications: Active Medications Generic Name Dose Route Start Last Admin Trade Name Freq PRN Reason Stop Dose Admin Folic Acid 1 mg 01/28/20 09:00 02/01/20 10:54 Folic Acid 1 Mg Tab PO Not Given DAILY WAQAR Sodium Bicarbonate 75 meq/ 1,000 mls @ 46.512 mls/hr 02/01/20 08:30 02/01/20 11:06 Sodium Chloride IV 1,000 mls INF WAQAR Administration Insulin Human Lispro 0 units 01/18/20 23:03 02/01/20 18:12 Humalog 300 Units/3 Ml Vial SC 2 unit .MILD SLIDING SCALE PRN Administration Mild Correctional Scale Insulin Human Lispro 0 units 01/18/20 23:03 02/01/20 03:34 Humalog 300 Units/3 Ml Vial SC 2 unit .BEDTIME SLIDING SC PRN Administration Bedtime Correctional Scale Nystatin 0 gm 01/24/20 21:00 02/01/20 10:54 Nystatin Powder 15 Gm Bot TOP 1 applic BID WAQAR Administration Sodium Chloride 10 ml 01/20/20 21:00 02/01/20 10:32 Flush - Normal Saline 10 Ml Syringe IVF Not Given Q12HR WAQAR Sodium Chloride 10 ml 01/20/20 09:45 01/27/20 06:20 Flush - Normal Saline 10 Ml Syringe IVF 10 ml PRN PRN Administration Saline Flush Vancomycin HCl 125 mg 01/27/20 18:00 02/01/20 18:11 Vancomycin Hcl 25 Mg/Ml Oral PO 125 mg Q6HR WAQAR Administration Warfarin Sodium 5 mg 02/01/20 17:00 02/01/20 18:11 Warfarin Sodium 5 Mg Tab PO 5 mg MoWeFr@1700 WAQAR Administration - Exam General Appearance: NAD, awake alert General - other findings: obese Eye: PERRL, anicteric sclera ENT: normocephalic atraumatic, no oropharyngeal lesions Neck: no JVD Heart: RRR, no murmur, no gallops, no rubs Respiratory: CTAB, no wheezes, no rales, no ronchi Gastrointestinal: soft, non-tender, non-distended, normal bowel sounds, no bruit Extremities: no cyanosis, no clubbing, no edema Skin: normal turgor, no lesions, no rashes Hosp A/P - Plan MBS: moderate pooling within the valleculae Chest Xray 01/22: cardiomegaly and mild vascular engorgement. Bilateral effusions and bibasilar atelectasis. Possible coexisting infiltrate in RLL Chest X-ray 01/25: bilateral pleural fluid with pulmonary vascular congestion Chest Xray 01/26: mild pulmonary vascular congestion CT brain: no acute process CT abdomen/pelvis: moderate to severe gastric distension. Duodenitis. Diverticulosis. Moderate right sided effusion with consolidation THis is an 89 year old female who presented with altered mental status, had WBC, tachycardia admitted for possible pneumonia. Did have a severe lactic acidosis o n admission Acute kidney injury on CKD - improved to 4.49 with IV fluids. Her baseline was 0.8 in 09/2019. . Fluids changed to 1/2 normal saline with bicarb today per nephrology - per nephrology if no significant improvement in creatinine by tomorrow, could likely stop fluids. SHe has no hydronephrosis on CT scan #Abdominal distension - possibly duodenitis vs gastric distension #Malnutrition - CT abdomen done today showing severe gastric distension. REcommended NG tube placement. Attempted to call Jesús, the MPOA regarding NG tube, and unable to get hold of patient - attempt again tomorrow - for now continue PPN Leukocytosis - WBC increasing to 17.9. She denies cough or shortness of breath - UA and urine culture negative. Will monitor Acute on chronic encephalopathy- possibly from dementia - patient appears to have difficulty with word finding. IV fluids have not shown significant improvement in mental status. UA and chest Xray normal - this will likely be a barrier for her to eat well in general Pleural effusion - large pleural effusion on right side noted on CT abdomen. Discussed with Dr. Mandel, no indication for thoracentesis C diff infection - continue oral vancomycin day 09/25 Folate deficiency Anemia - Hb 10.6, stable. Continue folic acid supplements for deficiency Hypertension -controlled, will monitor RESOLVED PROBLEMS: 1. Acute hypoxic respiratory failure secondary to possible diastolic CHF - resolved - ECHO 08/2019 showed EF 50-55%. She has been off lasix since 01/26 2. Sepsis secondary to pneumonia - resolved - patient had bilateral infiltrates on 01/22. She received 7 days of IV zosyn. Blood and urine cultures negative 3. Lactic acidosis - presented with lactate of > 13 on admission. Resolved currently Disposition: pending improvement in oral intake. May consider transitioning to hospice
--- NOTE | 2020-02-01 22:06 | RAD ---
Chest one view HISTORY: Leukocytosis. Pleural effusion. COMPARISON: 01/27/2020. FINDINGS: Cardiac silhouette is magnified, enlarged, and partially obscured by ill-defined opacity at each base. Hazy component of the opacity at the right base has increased slightly since the prior study. Hemidiaphragms partially obscured. Pulmonary vasculature upper limits of normal. Mediastinum is midline with aortic calcification. No evidence of pneumothorax. Prominent degenerative changes of each shoulder. IMPRESSION : Right pleural fluid has increased slightly since the prior study. Other findings are stable.
[2020-02-02 05:32] LABS: Mean Corpuscular HGB CONC 33.5 g/dL (32.0-36.0); Mean Corpuscular Hemoglobin 31.8 pg (27.0-31.0); Mean Platelet Volume 9.6 fL (7.4-10.4); Platelet Count 201 thou/uL (130-400); RBC Distribution Width 13.6 % (11.5-14.5); Red Blood Cell (RBC) Count 2.82 mill/uL (4.20-5.40); White Blood Cell (WBC) Count 14.2 thou/uL (4.8-10.8)
[2020-02-02 05:43] LABS: INR-International Normal Ratio 2.3; Prothrombin Time 25.4 sec (12.0-14.7)
[2020-02-02 05:55] LABS: Anion Gap 18 mmol/L (10-20); BUN (Urea Nitrogen) 97 mg/dL (9.8-20.1); Calc. Creatinine Clearance 13 mL/min (70-130); Calcium 9.7 mg/dL (7.8-10.44); Carbon Dioxide 27 mmol/L (23-31); Chloride 109 mmol/L (98-107); Estimated GFR-MDRD 9; Glucose 161 mg/dL (83-110); Potassium 3.8 mmol/L (3.5-5.1); Sodium 150 mmol/L (136-145)
[2020-02-02] MEDS: Vancomycin HCl 25 MG/ML Oral PO SCH ×2 (07:52→11:54)
--- NOTE | 2020-02-02 10:05 | EKG ---
Test Reason : Blood Pressure : / mmHG Vent. Rate : 120 BPM Atrial Rate : 105 BPM P-R Int : 000 ms QRS Dur : 078 ms QT Int : 380 ms P-R-T Axes : 000 068 060 degrees QTc Int : 537 ms Atrial fibrillation with rapid ventricular response Cannot rule out Anterior infarct , age undetermined Abnormal ECG Confirmed by MINDY DAHL, KATELYN ([id number]), assignment editor TERE BROWN ([id number]) on 02/02/2020 10:04:36 AM Referred By: Confirmed By:KATELYN GUILLEN MD
[2020-02-02] MEDS: Folic Acid 1 MG TAB PO SCH (11:08)
[2020-02-02] MEDS: Nystatin Powder 15 GM BOT TOP SCH (11:14)
[2020-02-02] MEDS ORDERED: Dextrose 5% in Water 1,000 ML IV SCH (11:15)
--- NOTE | 2020-02-02 11:17 | PDOC.HOSPP ---
- Subjective Encounter Date: 02/02/20 Encounter Time: 11:00 Subjective: f/u for JIAMIE/sepsis/AMS. - Objective Vital Signs & Weight: Vital Signs (12 hours) Temp Pulse Resp BP Pulse Ox 02/02/20 08:15 97.7 F 98 18 103/63 95 02/02/20 03:42 97.8 F 91 22 H 117/95 H 95 02/02/20 00:02 94 L 02/01/20 23:50 98.0 F 90 22 H 102/67 94 L Weight Admit Weight 219 lb 2.232 oz Weight 215 lb 14.4 oz Most Recent Monitor Data Heart Rate from ECG 100 NIBP 161/119 NIBP BP-Mean 133 Respiration from ECG 22 SpO2 97 I&O: 02/01/20 02/02/20 02/03/20 06:59 06:59 06:59 Intake Total 3914 607 Output Total 575 650 Balance 3339 -43 Result Diagrams: 02/02/20 05:03 02/02/20 05:03 Additional Labs: Accuchecks 02/02/20 02/02/20 02/01/20 05:40 00:42 17:57 POC Glucose 156 H 127 H 163 H 02/01/20 11:50 POC Glucose 178 H Microbiology 01/27/20 14:31 Stool C. difficile GDH Antigen & Toxins - Final 01/27/20 14:31 Stool Clostridioides difficile Toxins A&B (PCR) - Final 01/20/20 16:56 Urine lau catheter Urine Culture - Final NO GROWTH AT 36 HOURS Laboratory Tests 01/27/20 01/28/20 01/29/20 04:32 04:44 04:45 WBC 15.0 H 13.9 H 15.6 H INR Sodium Creatinine 01/30/20 01/30/20 01/30/20 04:43 04:43 04:43 WBC 15.1 H INR 3.3 Sodium 150 H Creatinine 4.95 H 01/30/20 01/31/20 01/31/20 14:58 04:57 04:57 WBC INR 3.1 Sodium 148 H 149 H Creatinine 4.82 H 5.05 H 01/31/20 02/01/20 02/01/20 12:05 07:02 07:02 WBC INR 2.1 Sodium 145 143 Creatinine 4.75 H 4.49 H 02/01/20 02/02/20 07:02 05:03 WBC 17.9 H INR 2.3 Sodium Creatinine Radiology Reviewed by me: Yes (CT abd - gastric distention, duodenitis) EKG Reviewed by me: Yes (Tele - A-fib in 90's) Hospitalist ROS - Medication Medications: Active Medications Generic Name Dose Route Start Last Admin Trade Name Freq PRN Reason Stop Dose Admin Folic Acid 1 mg 01/28/20 09:00 02/01/20 10:54 Folic Acid 1 Mg Tab PO Not Given DAILY WAQAR Insulin Human Lispro 0 units 01/18/20 23:03 02/01/20 18:12 Humalog 300 Units/3 Ml Vial SC 2 unit .MILD SLIDING SCALE PRN Administration Mild Correctional Scale Insulin Human Lispro 0 units 01/18/20 23:03 02/01/20 03:34 Humalog 300 Units/3 Ml Vial SC 2 unit .BEDTIME SLIDING SC PRN Administration Bedtime Correctional Scale Nystatin 0 gm 01/24/20 21:00 02/01/20 21:29 Nystatin Powder 15 Gm Bot TOP 1 applic BID WAQAR Administration Sodium Chloride 10 ml 01/20/20 21:00 02/01/20 21:34 Flush - Normal Saline 10 Ml Syringe IVF Not Given Q12HR WAQAR Sodium Chloride 10 ml 01/20/20 09:45 01/27/20 06:20 Flush - Normal Saline 10 Ml Syringe IVF 10 ml PRN PRN Administration Saline Flush Vancomycin HCl 125 mg 01/27/20 18:00 02/02/20 07:52 Vancomycin Hcl 25 Mg/Ml Oral PO 125 mg Q6HR WAQAR Administration Warfarin Sodium 5 mg 02/01/20 17:00 02/01/20 18:11 Warfarin Sodium 5 Mg Tab PO 5 mg MoWeFr@1700 WAQAR Administration - Exam General Appearance: ill appearing General - other findings: somnolent Eye: PERRL, anicteric sclera ENT: normocephalic atraumatic, no oropharyngeal lesions, dry oral mucosa Neck: supple, symmetric, no JVD, no thyromegaly, no lymphadenopathy Heart: RRR, no gallops, no rubs, normal peripheral pulses Heart - other findings: S1, S2 Respiratory: tachypneic Respiratory - other findings: diminished in bases bilat, scattered coarse sounds Gastrointestinal: normal bowel sounds, no guarding Gastrointestinal - other findings: distended, mild TTP Extremities: no cyanosis, no clubbing, 1+ LE edema Skin: normal turgor Neurological: no new deficit Musculoskeletal: generalized weakness Psychiatric: somnolent, lethargic Hosp A/P (1) Acute renal failure Status: Acute Plan: No improvement in 2 weeks and likely will not improve with any therapeutics (2) Hypernatremia Code(s): E87.0 - HYPEROSMOLALITY AND HYPERNATREMIA Status: Acute Plan: Recurrent, likely dehydration effect, start D5W @ 75ml/h (3) 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 Status: Chronic Plan: Persistent and multifactorial, supportive mgmt, likely will not improve (4) Hypokalemia Code(s): E87.6 - HYPOKALEMIA Status: Acute Plan: Improved, KCL supplementation (5) Chronic anticoagulation Code(s): Z79.01 - [employer] (CURRENT) USE OF ANTICOAGULANTS Status: Chronic Plan: INR therapeutic currently, serial INR (6) Clostridium difficile diarrhea Code(s): A04.72 - ENTEROCOLITIS D/T CLOSTRIDIUM DIFFICILE, NOT SPCF RECUR Status: Acute Plan: Improved, continue Vancomycin po q6h - Plan continue antibiotics, social services director, DVT proph w/SCDs Consults: Palliative Care Spoke with Jesús HARDEN, agrees with pursuing hospice at [facility] Will arrange for transfer today Supportive mgmt Code Status: DNAR
[2020-02-02 12:14] VITALS: BP 121/71; TEMP 97.3
--- NOTE | 2020-02-02 12:58 | DIS ---
DATE OF ADMISSION: 01/18/2020 DATE OF DISCHARGE: 02/02/2020 DISCHARGE DIAGNOSES: 1. Acute renal failure on chronic kidney disease. 2. Hyponatremia, persistent. 3. Mild protein calorie malnutrition. 4. Acute hypoxic respiratory failure. 5. Acute diastolic congestive heart failure. 6. Clostridium difficile diarrhea. 7. Sepsis secondarily to bacterial pneumonia, suspected gram-positive cocci. 8. Duodenitis. 9. Chronic anticoagulation. PERTINENT LABORATORY AND X-RAY FINDINGS: Potassium ranged between 3.1 to 4.7. Sodium ranged between 136 to 150. Creatinine ranged between 4.51 to 5.13. Lactic acid level ranged between 1.0 to 14.4. Serum ammonia level 46. CRP 7.55. BNP ranged between 230 to 381. Vitamin B12 level 1211. Folic acid level 2.50. Procalcitonin 0.34. TSH 1.72. CBC showed a white blood cell count ranging between 14.2 to 19.9, hemoglobin ranged between 9.0 to 11.7. PT 25.4, INR 2.3, 02/02/2020. COVID-19 PCR dated 01/18/2020 negative. Blood cultures x2 dated 01/18/2020 showed no growth at 5 days. Urine culture dated 01/18/2020, showed no growth at 36 hours. Urine culture dated 01/20/2020, showed no growth at 36 hours. Clostridium difficile antigen and toxin dated 01/27/2020, positive for antigen and negative toxin. CT of the brain without contrast dated 01/18/2020 showed no acute intracranial process. Portable chest x-ray dated 01/23/2020, showed cardiomegaly with mild vascular prominence. Bilateral pleural effusions with bibasilar atelectasis noted. Modified barium swallow evaluation dated 01/25/2020, showed moderate amount of pooling within the vallecula. Aspiration and deep penetration with straws and thin liquid. Bilateral renal ultrasound dated 01/26/2020, showed no evidence for hydronephrosis or renal mass. CT of the abdomen and pelvis dated 02/01/2020, showed moderate to severe gastric distention with associated possible duodenitis. No bowel obstruction noted. HOSPITAL COURSE: The patient was initially admitted after presenting with altered mentation with initial hypoglycemia noted. The patient underwent extensive evaluation, receiving empiric IV antibiotic therapy with vancomycin and cefepime as well as placement on a Cardizem infusion due to atrial fibrillation with rapid ventricular response in the context of known chronic atrial fibrillation. The patient was treated for sepsis criteria, receiving IV fluids and continuation of antibiotic therapy. The patient was noted with profound lactic acidosis with unclear source with suspicion of potential pulmonary source initially. The patient was placed in the Critical Care Unit and monitored for clinical response. The patient was also noted with supratherapeutic INR, likely due to the sepsis episode with correction over the course of her hospital stay. The patient was also noted with associated acute renal failure, unresponsive to IV fluids and adjustment to her chronic medication regimen. The patient did receive sodium bicarbonate therapy and was evaluated by the Nephrology Service without recommendation to pursue hemodialysis due to advanced age and multiple comorbid status. The patient never clinically improved during her hospital course, remaining confused with altered mentation and overall poor oral intake. Due to the patient's plethora of comorbid conditions, Palliative Care Service was consulted and discussions were had regarding hospice care. The patient's medical power of trademark attorney decided to pursue hospice care when clinical improvement was not observed and the patient's overall clinical condition continued to decline. I have examined the patient at the time of discharge and discussed clinical situation with the patient's medical power of trademark attorney. Medical power of trademark attorney is in agreement to pursue hospice care at [facility]. DISCHARGE MEDICATIONS: 1. Coumadin 2.5 mg on Tuesday, Tuesday, , and Tuesday and 5 mg on Tuesday, Tuesday, and Tuesday. 2. Vancomycin 125 mg p.o. q.6 hours x5 days. FOLLOWUP: The patient may follow up with [facility] at [facility] after discharge. CONDITION ON DISCHARGE: Guarded. ACTIVITY: Bed-bound. DIET: ADA. CODE STATUS: Do not attempt resuscitation. DISPOSITION: Discharged to [facility] with [facility], 02/02/2020. TIME SPENT: Total time preparing and coordinating discharge, 37 minutes. Job ID: [id number]
--- NOTE | 2020-02-02 13:27 | PDOC.NEPPN ---
- Subjective Encounter Date: 02/02/20 Encounter Time: 13:25 Subjective: No new problem. Oral intake still poor. - Objective Vital Signs & Weight: Vital Signs (12 hours) Temp Pulse Resp BP Pulse Ox 02/02/20 11:24 97.3 F L 82 22 H 121/71 96 02/02/20 08:15 97.7 F 98 18 103/63 95 02/02/20 03:42 97.8 F 91 22 H 117/95 H 95 Weight Admit Weight 219 lb 2.232 oz Weight 215 lb 14.4 oz Most Recent Monitor Data Heart Rate from ECG 100 NIBP 161/119 NIBP BP-Mean 133 Respiration from ECG 22 SpO2 97 I&O: 02/01/20 02/02/20 02/03/20 06:59 06:59 06:59 Intake Total 3914 607 Output Total 575 650 550 Balance 3339 -43 -550 Result Diagrams: 02/02/20 05:03 02/02/20 05:03 Additional Labs: Accuchecks 02/02/20 02/02/20 02/02/20 13:04 05:40 00:42 POC Glucose 182 H 156 H 127 H 02/01/20 17:57 POC Glucose 163 H Nephrology ROS - Medication Medications: Active Medications Generic Name Dose Route Start Last Admin Trade Name Freq PRN Reason Stop Dose Admin Folic Acid 1 mg 01/28/20 09:00 02/02/20 11:08 Folic Acid 1 Mg Tab PO 1 mg DAILY WAQAR Administration Dextrose/Water 1,000 mls @ 75 mls/hr 02/02/20 11:15 02/02/20 11:08 D5w IV 1,000 mls .[id number] WAQAR Administration Insulin Human Lispro 0 units 01/18/20 23:03 02/01/20 18:12 Humalog 300 Units/3 Ml Vial SC 2 unit .MILD SLIDING SCALE PRN Administration Mild Correctional Scale Insulin Human Lispro 0 units 01/18/20 23:03 02/01/20 03:34 Humalog 300 Units/3 Ml Vial SC 2 unit .BEDTIME SLIDING SC PRN Administration Bedtime Correctional Scale Nystatin 0 gm 01/24/20 21:00 02/02/20 11:14 Nystatin Powder 15 Gm Bot TOP 1 applic BID WAQAR Administration Sodium Chloride 10 ml 01/20/20 21:00 02/02/20 11:09 Flush - Normal Saline 10 Ml Syringe IVF 10 ml Q12HR WAQAR Administration Sodium Chloride 10 ml 01/20/20 09:45 01/27/20 06:20 Flush - Normal Saline 10 Ml Syringe IVF 10 ml PRN PRN Administration Saline Flush Vancomycin HCl 125 mg 01/27/20 18:00 02/02/20 11:54 Vancomycin Hcl 25 Mg/Ml Oral PO 125 mg Q6HR WAQAR Administration Warfarin Sodium 5 mg 02/01/20 17:00 02/01/20 18:11 Warfarin Sodium 5 Mg Tab PO 5 mg [id number]@1700 WAQAR Administration - Exam General Appearance: awake alert General - other findings: Morbidly obese ENT: normocephalic atraumatic, dry oral mucosa Respiratory - other findings: fair air entry bilaterally Cardiovascular: irregular Gastrointestinal: soft, normal bowel sounds Gastrointestinal - other findings: enlarged Extremities: 1+ LE edema Neurological - other findings: Awake and oriented toperson at least PSYCH: oriented to person Nephrology Results - Labs Result Diagrams: 02/02/20 05:03 02/02/20 05:03 Lab results: WBC 14.2 thou/uL (4.8-10.8) H 02/02/20 05:03 Hgb 9.0 g/dL (12.0-16.0) L 02/02/20 05:03 Hct 26.8 % (36.0-47.0) L 02/02/20 05:03 MCV 95.0 fL (78.0-98.0) 02/02/20 05:03 Plt Count 201 thou/uL (130-400) 02/02/20 05:03 Neutrophils % 79.5 % (42.0-75.0) H 01/27/20 04:32 Band Neuts % (Manual) 12 % (5-11) H 01/28/20 04:44 ABG pH 7.50 (7.35-7.45) H 01/20/20 09:01 ABG pCO2 38.2 mmHg (35.0-45.0) 01/20/20 09:01 ABG pO2 51.5 mmHg (> 60.0) L* 01/20/20 09:01 Sodium 150 mmol/L (136-145) H 02/02/20 05:03 Potassium 3.8 mmol/L (3.5-5.1) 02/02/20 05:03 Chloride 109 mmol/L (98-107) H 02/02/20 05:03 Carbon Dioxide 27 mmol/L (23-31) 02/02/20 05:03 BUN 97 mg/dL (9.8-20.1) H 02/02/20 05:03 Creatinine 4.66 mg/dL (0.6-1.1) H 02/02/20 05:03 Glucose 161 mg/dL (83-110) H 02/02/20 05:03 Lactic Acid 1.0 mmol/L (0.5-2.2) 02/01/20 12:44 Calcium 9.7 mg/dL (7.8-10.44) 02/02/20 05:03 Total Bilirubin 0.6 mg/dL (0.2-1.2) 01/28/20 04:44 AST 25 U/L (5-34) 01/28/20 04:44 ALT 19 U/L (8-55) 01/28/20 04:44 Alkaline Phosphatase 68 U/L (40-110) 01/28/20 04:44 Ammonia 46 umol/L (18-72) 01/18/20 19:04 Creatine Kinase 541 U/L (29-168) H 01/20/20 11:38 CK-MB (CK-2) 22.3 ng/mL (0-6.6) H* 01/18/20 17:52 Troponin I 0.046 ng/mL (< 0.028) H 01/18/20 17:52 C-Reactive Protein 7.55 mg/dL (= or < 0.5) H 01/20/20 03:17 B-Natriuretic Peptide 230.3 pg/mL (0-100) H 01/27/20 12:44 Serum Total Protein 6.5 g/dL (6.0-8.3) 01/28/20 04:44 Albumin 3.5 g/dL (3.4-4.8) 01/30/20 14:58 Urine Ketones Negative mg/dL (Negative) 01/29/20 14:07 Urine Blood 1+ (Negative) A 01/29/20 14:07 Urine Nitrite Negative (Negative) 01/29/20 14:07 Ur Leukocyte Esterase Negative Kulwinder/uL (Negative) 01/29/20 14:07 Urine RBC 0-3 HPF (0-3) 01/29/20 14:07 Urine WBC 4-6 HPF (0-3) A 01/29/20 14:07 Ur Squamous Epith Cells 0-3 HPF (0-3) 01/29/20 14:07 Urine Bacteria 2+ HPF (None Seen) A 01/29/20 14:07 Sodium 150 mmol/L (136-145) H 02/02/20 05:03 Potassium 3.8 mmol/L (3.5-5.1) 02/02/20 05:03 Chloride 109 mmol/L (98-107) H 02/02/20 05:03 Carbon Dioxide 27 mmol/L (23-31) 02/02/20 05:03 Anion Gap 18 mmol/L (-20) 02/02/20 05:03 BUN 97 mg/dL (9.8-20.1) H 02/02/20 05:03 Creatinine 4.66 mg/dL (0.6-1.1) H 02/02/20 05:03 Glucose 161 mg/dL (83-110) H 02/02/20 05:03 Calcium 9.7 mg/dL (7.8-10.44) 02/02/20 05:03 Phosphorus 5.4 mg/dL (2.3-4.7) H 01/29/20 05:00 Magnesium 1.9 mg/dL (1.6-2.6) 01/29/20 05:00 Albumin 3.5 g/dL (3.4-4.8) 01/30/20 14:58 Nephrology AP PN - Plan ASSESSMENT Acute renal failure. Most likely related to hemodynamic factors related to sepsis and volume depletion.Superimposed ATN is a concern. Continues to make adequate urine. Some improvemnt in Creat and BUN with IV fluid. Lactic acidosis: Most likely related to use of metformin, acute kidney injury, C dif and sepsis. High anion gap Metabolic acidosis. Hypernatremia. Resolved Edema /fluid overload. Improved. Hypokalemia Hypomagnesemia Acute encephalopathy: Multifactorial from hypoglycemia, sepsis, and electrolyte derangement as well as acid-base derangement. Improved but not baseline. Contribution of uremia cannot be ruled out. Presumed urinary tract infection. Hypocalcemia. Diabetes mellitus with hyperglycemia. Hypertension: Control is acceptable Paroxysmal atrial fibrillation with poorly controlled rate. Supratherapeutic INR with no overt bleeding. Gastric distension. 2/2 Possible gastric outlet obstruction and Possible duodenitis. PLAN/discussion. Oral intake remained suboptimal. Gastric distention seem contributory. Even if renal function improves with IV fluid, it definitely will worsen due to poor oral intake. Moreso, if gastric outlet obstruction and leucocytosis cannot be evaluated and treated, there is no utility in trying to improve renal function since it is a consequence of other pathologies. Hence it will be appropriate for patient to proceed with hospice care as contemplated. Will DC IVF.
[2020-02-02] MEDS ORDERED: Warfarin Sodium 2.5 MG TAB PO SCH (17:00)
== END 2020-02-02 16:36 | disposition hospice, home (50) | DRG 871 ==
LOC: ERS 17:05 → CCU 18:58 → IMCU/EMU 01-19 15:35 → 2SE 01-22 16:52
PROVIDERS: ADMIT Student in an Organized Health Care Education/Training Program; ATTEND Student in an Organized Health Care Education/Training Program
PROC: 8E0ZXY6 Isolation (ICD-10-PCS; principal; 2020-01-27)
DX: A41.89 Other specified sepsis (principal); J15.9 Unspecified bacterial pneumonia; J96.01 Acute respiratory failure with hypoxia; I50.31 Acute diastolic (congestive) heart failure; G92 Toxic encephalopathy; N17.0 Acute kidney failure with tubular necrosis; E44.1 Mild protein-calorie malnutrition; D68.9 Coagulation defect, unspecified; N18.5 Chronic kidney disease, stage 5; E87.4 Mixed disorder of acid-base balance; A04.72 Enterocolitis due to Clostridium difficile, not specified as recurrent; E87.1 Hypo-osmolality and hyponatremia; E87.0 Hyperosmolality and hypernatremia; N39.0 Urinary tract infection, site not specified; Z20.828 Contact with and (suspected) exposure to other viral communicable diseases; Z66 Do not resuscitate; Z51.5 Encounter for palliative care; E78.00 Pure hypercholesterolemia, unspecified; K29.80 Duodenitis without bleeding; F03.90 Unspecified dementia, unspecified severity, without behavioral disturbance, psychotic disturbance, mood disturbance, and anxiety; E03.9 Hypothyroidism, unspecified; E11.649 Type 2 diabetes mellitus with hypoglycemia without coma; Z96.643 Presence of artificial hip joint, bilateral; R65.20 Severe sepsis without septic shock; E86.0 Dehydration; M19.90 Unspecified osteoarthritis, unspecified site; E66.01 Morbid (severe) obesity due to excess calories; D63.1 Anemia in chronic kidney disease; D52.9 Folate deficiency anemia, unspecified; I48.0 Paroxysmal atrial fibrillation; E86.1 Hypovolemia; E78.5 Hyperlipidemia, unspecified; E11.22 Type 2 diabetes mellitus with diabetic chronic kidney disease; E83.51 Hypocalcemia; E11.65 Type 2 diabetes mellitus with hyperglycemia; E87.6 Hypokalemia; E83.42 Hypomagnesemia; Z79.899 Other long term (current) drug therapy; Z79.4 Long term (current) use of insulin; Z79.890 Hormone replacement therapy; Z68.34 Body mass index [BMI] 34.0-34.9, adult; Z79.01 Long term (current) use of anticoagulants; Z74.01 Bed confinement status; Z86.711 Personal history of pulmonary embolism
CPT/HCPCS: 36415; 36416; 51702; 70450; 71045; 74176; 74230; 76770; 80048; 80053; 80202; 81001; 82040; 82140; 82306; 82550; 82553; 82570; 82607; 82746; 82805; 83605; 83615; 83735; 83880; 84100; 84145; 84156; 84300; 84443; 84540; 85025; 85027; 85048; 85610; 85730; 86140; 87086; 87324; 87449; 87493; 87635; 93005; 93970; 96361; 96374; J1940; J2001; J2543; J3370; J3430; J3475; J3480; J3490; J7042; J7050; P9047; U0003

== ENCOUNTER 2020-02-15 02:49 | Emergency (ER) | payer MEDICARE, OTHER ==
[2020-02-15 03:30] LABS: #Basophils 0.1 thou/uL (0.0-0.2); #Eosinphils 0.3 thou/uL (0.0-0.7); #Lymphocytes 1.7 thou/uL (1.20-3.40); #Monocytes 0.8 thou/uL (0.11-0.59); #Neutrophils 6.7 thou/uL (1.40-6.50); %Basophils 0.6 % (0.0-1.0); %Eosinophils 3.1 % (0.0-10.0); %Lymphocytes 17.6 % (21.0-51.0); %Monocytes 8.2 % (0.0-10.0); %Neutrophils 70.6 % (42.0-75.0); Hemoglobin 6.5 g/dL (12.0-16.0); Mean Corpuscular HGB CONC 33.7 g/dL (32.0-36.0); Mean Corpuscular Hemoglobin 31.7 pg (27.0-31.0); Mean Corpuscular Volume 94.3 fL (78.0-98.0); Mean Platelet Volume 8.4 fL (7.4-10.4); Platelet Count 218 thou/uL (130-400); RBC Distribution Width 14.6 % (11.5-14.5); Red Blood Cell (RBC) Count 2.05 mill/uL (4.20-5.40); White Blood Cell (WBC) Count 9.5 thou/uL (4.8-10.8)
[2020-02-15 03:37] LABS: Prothrombin Time 71.1 sec (12.0-14.7)
[2020-02-15 03:40] LABS: INR-International Normal Ratio 8.3
== END 2020-02-15 04:30 ==
LOC: ERS 02:49
DX: D64.9 Anemia, unspecified (principal); R79.1 Abnormal coagulation profile; E11.22 Type 2 diabetes mellitus with diabetic chronic kidney disease; I48.91 Unspecified atrial fibrillation; E03.9 Hypothyroidism, unspecified; E78.00 Pure hypercholesterolemia, unspecified; F03.90 Unspecified dementia, unspecified severity, without behavioral disturbance, psychotic disturbance, mood disturbance, and anxiety; E78.5 Hyperlipidemia, unspecified; I12.9 Hypertensive chronic kidney disease with stage 1 through stage 4 chronic kidney disease, or unspecified chronic kidney disease; N18.9 Chronic kidney disease, unspecified; Z79.4 Long term (current) use of insulin; Z79.891 Long term (current) use of opiate analgesic; Z79.01 Long term (current) use of anticoagulants; Z79.899 Other long term (current) drug therapy
CPT/HCPCS: 36415; 85025; 85610; 86850; 86900; 86901; 99284